=== PATIENT | male | born 1965 | race Caucasian/White ===

== ENCOUNTER 2024-11-01 17:52 | Emergency (ER) | payer BC, SELFPAY ==
[2024-11-01 18:00] VITALS: BP 145/85; PULSE 101; RESP 16; TEMP 36.9; O2SAT 96; BMI 27.1
--- NOTE | 2024-11-01 18:01 | ED_ITS ---
Discharge Plan Disposition Patient Disposition: Home, Self-Care Referrals Follow up/Referrals: Zaid James MD [Primary Care Provider] - See instructions Activity Restrictions/Add. Instructions Additional Instructions/Restrictions: Today you were evaluated in the emergency department. Your head CT shows no acute intracranial findings. There is no major fracture of your CT of your C- spine. As we discussed, he will need an MRI most likely. I understand that you want to be discharged home at this time, however, please return to the ED for any worsening of your condition. Please use acetaminophen or ibuprofen [id number] for symptomatic relief. Clinical Impressions Clinical Impression: Neck pain Fall Qualifiers: Encounter type: initial encounter Qualified Code(s): W19.XXXA - Unspecified fall, initial encounter Headache Qualifiers: Headache type: unspecified Headache chronicity pattern: acute headache Intractability: not intractable Qualified Code(s): R51.9 - Headache, unspecified Instructions Patient Instructions: Exercises to Help Prevent Falls Print Language Print Language: [place] Discharge ED Provider: Jesus Gonzalez General Adult HPI <Steph Borjas APRN - Last Filed: 11/01/24 19:19> General Chief complaint: Head Injury Stated complaint: AO 11/01/24 1700 fell landed on head ,neck pain Time Seen by Provider: 11/01/24 17:56 History of Present Illness HPI narrative: patient is a 59-year-old male with PMHx HTN, diabetes, HLD, bilateral iliac artery stents, on anticoagulation who presents to the ED after a fall that occurred at 1700 today. He states that he was leaf blowing his yard when his dog ran in front of him and he tripped, falling forward. Patient states he did not have time to attempt to catch himself, he hit the top of his head when he landed. Related Data Allergies Allergy/AdvReac Type Severity Reaction Status Date / Time No Known Allergies Allergy Verified 11/01/24 18:05 PFSH <Steph Borjas APRN - Last Filed: 11/01/24 19:19> PFS Disclaimer: The information contained in this section may have been updated after the patient was seen, as this information can be updated by other users. Social History (Updated 11/01/24 @ 19:19 by Steph Borjas APRN) Smoking Status: Current every day smoker alcohol intake: never current occupational status: employed Travel in the last 8 weeks?: None Have you lived/traveled outside US in past 30 days?: No Contact w/someone who lives/traveled outside US past 30 days?: No Exposure to someone with infectious disease in past 14 days?: No Do you have a fever (greater than 100.4 F or 38 C)?: No Have you tested positive for COVID-19?: No Exposed to someone with COVID-19 in past 14 days?: No Do you have a sore throat?: No Do you have a cough?: No Do you have any weakness?: No Do you have any diarrhea?: No Are you experiencing any unusual bleeding?: No Do you have any muscle aches/pain?: No Do you have any abdominal pain?: No Are you experiencing loss of taste or smell?: No <Steph Borjas APRN - Last Filed: 11/01/24 19:19> ROS Obtained: Yes Systems reviewed as appropriate & no additional complaints except as documented Physical Exam <Steph Borjas APRN - Last Filed: 11/01/24 19:19> General General appearance: alert and in no apparent distress Head Head exam: normocephalic and other (Small area of occipital tenderness) Eye Eye exam: Present normal appearance and PERRL ENT ENT exam: Present normal exam Neck Neck exam: Present full ROM and tenderness Chest Chest inspection: Present normal inspection and symmetric chest wall rise; Absent tenderness Respiratory Respiratory exam: Present normal lung sounds bilaterally Cardiovascular Cardiovascular exam: Present regular rate Abdominal Exam Abdominal exam: Present soft and normal bowel sounds; Absent tenderness Extremities Exam Extremities exam: Present normal inspection and full ROM Back Exam Back exam: Present normal inspection and full ROM Neurological Exam Neurological exam: Present alert and oriented X3 Psychiatric Psychiatric exam: Present normal affect and normal mood Skin Skin exam: Present warm and dry Medical Decision Making <Steph Borjas APRN - Last Filed: 11/01/24 19:19> Medical Records Screening: Per USPSTF and CDC recommendations, given the prevalence of disease in our region, it is our hospital?s policy to screen for HIV and viral Hepatitis for all patients aged 18 and over and those with ongoing risk factors. Zev Inquiry Pt receiving controlled substance: No Vital Signs: 11/01/24 18:00 11/01/24 18:31 Temperature 98.5 F Temperature Source Oral Pulse Rate 90 Pulse Rate [Right] 101 H Respiratory Rate 16 Blood Pressure 130/74 Blood Pressure [Right Arm] 145/85 H Blood Pressure Mean [Right Arm] 105 Blood Pressure Source [Right Arm] Automatic Cuff Blood Pressure Position [Right Arm] Sitting 02 Sat by Pulse Oximetry 96 94 L Oxygen Delivery Method Room Air Room Air Orders (Tests/Meds): ED MEDICATIONS Discontinued Medications Generic Name Dose Route Start Last Admin Trade Name Freq PRN Reason Stop Dose Admin Oxycodone/Acetaminophen 1 each 11/01/24 18:05 11/01/24 18:12 Oxycodone 10mg W/Apap 325mg Tablet PO 11/01/24 18:06 1 each ONCE ONE Administration ORDERS Category Date Time Status CT cervical spine wo con Stat Cat Scan 11/01/24 18:[address] head/brain wo con Stat Cat Scan 11/01/24 18:05 Completed Medical Decision Narrative: In summary, patient is a 59-year-old male with PMHx HTN, diabetes, HLD, bilateral iliac artery stents, on anticoagulation who presents to the ED after a fall that occurred at 1700 today. He states that he was leaf blowing his yard when his dog ran in front of him and he tripped, falling forward. Patient states he did not have time to attempt to catch himself, he hit the top of his head when he landed. Did not lose consciousness. Does not have a laceration however does have small knot on occipital area. He reports he has a headache that is a 4 out of 10 on the right parietal aspect, feels like a pressure. He also reports that he has posterior neck pain, patient placed in c-collar upon arrival. Denies fever, chills, body aches, chest pain, shortness of breath, abdominal pain. Physical exam remarkable for C-spine tenderness, occipital tenderness. No nystagmus. PERRLA. No chest wall tenderness. Differential diagnosis includes C-spine fracture, malalignment, ICH, skull fracture, among others Discussed with patient that we will proceed with CT scan of the head and CT scan of the C-spine. He is agreeable to this plan. Will symptomatically managed with oxycodone for pain. CT scan of the head unremarkable for any acute findings. CT of the C-spine unremarkable for any acute findings. C-collar removed. Patient has full ROM of neck, mild pain during ROM. Attending discussed with patient he most likely needs a MRI, however patient states that he would like to be discharged home at this time. He states that he will return to the ED for any worsening of his condition. Discussed follow-up with his PCP. Patient was hemodynamically stable and ambulatory without difficulty from the ED <Jesus Gonzalez MD - Last Filed: 11/01/24 19:23> Vital Signs: 11/01/24 18:00 11/01/24 18:31 Temperature 98.5 F Temperature Source Oral Pulse Rate 90 Pulse Rate [Right] 101 H Respiratory Rate 16 Blood Pressure 130/74 Blood Pressure [Right Arm] 145/85 H Blood Pressure Mean [Right Arm] 105 Blood Pressure Source [Right Arm] Automatic Cuff Blood Pressure Position [Right Arm] Sitting 02 Sat by Pulse Oximetry 96 94 L Oxygen Delivery Method Room Air Room Air Orders (Tests/Meds): ED MEDICATIONS Discontinued Medications Generic Name Dose Route Start Last Admin Trade Name Freq PRN Reason Stop Dose Admin Oxycodone/Acetaminophen 1 each 11/01/24 18:05 11/01/24 18:12 Oxycodone 10mg W/Apap 325mg Tablet PO 11/01/24 18:06 1 each ONCE ONE Administration ORDERS Category Date Time Status CT cervical spine wo con Stat Cat Scan 11/01/24 18:[address] head/brain wo con Stat Cat Scan 11/01/24 18:05 Completed Medical Decision Narrative: In summary, patient is a 59-year-old male with PMHx HTN, diabetes, HLD, bilateral iliac artery stents, on anticoagulation who presents to the ED after a fall that occurred at 1700 today. He states that he was leaf blowing his yard when his dog ran in front of him and he tripped, falling forward. Patient states he did not have time to attempt to catch himself, he hit the top of his head when he landed. Did not lose consciousness. Does not have a laceration however does have small knot on occipital area. He reports he has a headache that is a 4 out of 10 on the right parietal aspect, feels like a pressure. He also reports that he has posterior neck pain, patient placed in c-collar upon arrival. Denies fever, chills, body aches, chest pain, shortness of breath, abdominal pain. Physical exam remarkable for C-spine tenderness, occipital tenderness. No nystagmus. PERRLA. No chest wall tenderness. Differential diagnosis includes C-spine fracture, malalignment, ICH, skull fracture, among others Discussed with patient that we will proceed with CT scan of the head and CT scan of the C-spine. He is agreeable to this plan. Will symptomatically managed with oxycodone for pain. CT scan of the head unremarkable for any acute findings. CT of the C-spine unremarkable for any acute findings. C-collar removed. Patient has full ROM of neck, mild pain during ROM. Attending discussed with patient he most likely needs a MRI, however patient states that he would like to be discharged home at this time. He states that he will return to the ED for any worsening of his condition. Discussed follow-up with his PCP. Patient was hemodynamically stable and ambulatory without difficulty from the ED I was consulted by the AMILCAR, and we discussed the complexity of the problems being addressed. I approved the treatment and management plan for this patient's care in the Emergency Department, thus performing a substantive portion of the medical decision making. I independently examined and interviewed patient. I independently interpreted patient's imaging. No intracranial hemorrhage, but he does have what appears to be fractured osteophyte in the cervical spine. Could be related the patient's pain. On evaluation, neurologically intact, including strength and sensation in his upper extremities. Some midline spine pain overlying C3 and C7, but range of motion of neck intact. No radiating pain when turning his head neck. Was recommended that he stay for admission for MRI versus being transferred to trauma center for MRI, he declined both of these things to state he will follow-up with his family doctor soon as possible. I do not feel this is unreasonable. He be discharged with close return precautions. Jesus Gonzalez MD Critical Care <Steph Borjas, COMMISSARY OFFICER - Last Filed: 11/01/24 19:19> Critical Care Time Critical Care Time: No
--- NOTE | 2024-11-01 18:05 | CT_ITS ---
PROCEDURE INFORMATION: Exam: CT Cervical Spine Without Contrast Exam date and time: 11/01/2024 6:20 PM Age: 59 years old Clinical indication: Injury or trauma; Fall; Other: Pain; Additional info: Fell, hit head, neck pain TECHNIQUE: Imaging protocol: Computed tomography of the cervical spine without contrast. Radiation optimization: All CT scans at this facility use at least one of these dose optimization techniques: automated exposure control; mA and/or kV adjustment per patient size (includes targeted exams where dose is matched to clinical indication); or iterative reconstruction. COMPARISON: CT HEAD/BRAIN WO CON 11/01/2024 6:18 PM FINDINGS: Bones: Cervical vertebrae normal in height. No acute fracture. Minimal dextroconvex curvature. Maintained craniocervical junction. Multilevel degenerative changes. Varying degrees of neural foraminal narrowing. No severe spinal canal stenosis. Lungs: No acute findings. Soft tissues: Unremarkable. IMPRESSION: No acute osseous findings.
--- NOTE | 2024-11-01 18:05 | CT_ITS ---
PROCEDURE INFORMATION: Exam: CT Head Without Contrast Exam date and time: 11/01/2024 6:18 PM Age: 59 years old Clinical indication: Injury or trauma; Fall; Other: Pain; Additional info: Fall hit head on bt TECHNIQUE: Imaging protocol: Computed tomography of the head without contrast. Radiation optimization: All CT scans at this facility use at least one of these dose optimization techniques: automated exposure control; mA and/or kV adjustment per patient size (includes targeted exams where dose is matched to clinical indication); or iterative reconstruction. COMPARISON: CT HEAD/BRAIN WO CON 11/01/2024 6:18 PM FINDINGS: Brain: No acute intracranial hemorrhage, midline shift, or mass effect. 2.5 x 2.4 x 2.4 cm right retrocerebellar CSF collection favoring an arachnoid cyst. Cerebral ventricles: No ventriculomegaly. Paranasal sinuses: Minimal scattered mucosal thickening. Mastoid air cells: Visualized mastoid air cells are well aerated. Bones: Unremarkable. No acute fracture. Soft tissues: Unremarkable. IMPRESSION: No acute intracranial findings.
[2024-11-01] MEDS: OXYCODONE 10MG W/APAP 325MG TABLET 1 EACH PO (18:12)
[2024-11-01 18:31] VITALS: BP 130/74; PULSE 90; O2SAT 94
[2024-11-01 19:21] VITALS: BP 121/77; PULSE 96; RESP 16; TEMP 36.8; O2SAT 95
== END 2024-11-01 19:22 | disposition home or self-care (01) ==
PROVIDERS: Emergency Provider Emergency Medicine; PCP Family Medicine
DX: M54.2 Cervicalgia (principal); R51.9 Headache, unspecified; W01.10XA Fall on same level from slipping, tripping and stumbling with subsequent striking against unspecified object, initial encounter
CPT/HCPCS: 70450; 72125; 99285

== ENCOUNTER 2025-01-17 08:48 | Outpatient (CLI) | payer BC, SELFPAY ==
--- OUTSIDE RECORDS SUMMARY | 2024-12-17 07:35 | XMS_ITS | Encounter Summary ---
[facility] Address [address] [place] [address] Care Team Providers Care Glazier Artist Name Role Phone Zaid James MD Primary Care Provider [phone] Reason for Referral * Diagnostic Imaging (Routine) - Closed Specialty Diagnoses / Procedures Referred By Contac t Referred To Contact Cardiology Diagnoses Atherosclerosis of right iliac artery Procedures Duplex Aorta IVC Iliac Graft Limited oJhn Parkinson MD [address] [place] [address] Phone: tel: fax: [facility] [employer] [address] [address] Phone: tel: fax: Referral ID Status Reason Start Date Expiration Date Visits Re quested Visits Authorized [id number] Closed 12/06/2024 01/04/2025 1 1 Reason for Visit * Diagnostic Imaging (Routine) - Closed Specialty Diagnoses / Procedures Referred By Contac t Referred To Contact Cardiology Diagnoses Atherosclerosis of right iliac artery Procedures Duplex Aorta IVC Iliac Graft Limited John Parkinson MD [facility] [employer] [address] Phone: tel: fax: [facility] NON INVASIVE VASCULAR LABORATORY [facility] [employer] [address] [address] Phone: tel: fax: Referral ID Status Reason Start Date Expiration Date Visits Re quested Visits Authorized [id number] Closed 12/06/2024 01/04/2025 1 1 Encounter Details Date Type Department Care Team (Latest Contact Info) Description 12/17/2024 7:35 AM EDT - 12/17/2024 11:59 PM EDT Hospital Encounter [facility] [address] [address] Atherosclerosis of right iliac artery Discharge Disposition: Home or Self Care Social History Tobacco Use Types Packs/Day Years Used Date Smoking Tobacco: Former Cigarettes 2 31 1 08/08/1985 - 06/07/2017 Passive Smoke Exposure: Never Smokeless Tobacco: Never Alcohol Use Standard Drinks/Week Comments Yes 0 (1 standard drink = 0.6 oz pur e alcohol) once or twice a month Abuse Screen Answer Date Recorded Feels Unsafe at Home or Work/School no 10/07/2023 Feels Threatened by Someone no 09/24 Does Anyone Try to Keep You From Having Contact with Others or Doing Things Outside Your Home? no 10/07/2023 Physical Signs of Abuse Present no 10/07/2023 Sex and Gender Information Value Date Recorded Sex Assigned at Not on file Legal Sex Male 9:04 AM EDT Gender Identity Not on file Sexual Orientation Not on file documented as of this encounter Medications at Time of Discharge aspirin 81 MG EC tablet Take 1 tablet by mouth Daily. atorvastatin (LIPITOR) 40 MG tablet Take 1 tablet by mouth Daily. 09/04/2024 Baclofen (LIORESAL) 5 MG tablet Take 1 tablet by mouth 3 (Three) Times a Day. cilostazol (PLETAL) 100 MG tablet TAKE 1 TABLET BY MOUTH TWICE DAILY (30 MINUTES BEFORE OR 2 HOURS AFTER BREAKFAST AND DINNER) clopidogrel (PLAVIX) 75 MG tablet Take 1 tablet by mouth once daily 90 tablet 10/14/2024 DULoxetine (CYMBALTA) 30 MG capsule Take 1 capsule by mouth Daily. Farxiga 10 MG tablet Take 10 mg by mouth Daily. 12/11/2024 gabapentin (NEURONTIN) 300 MG capsuleIndicatio ns:Vascular occlusion Take 1 capsule by mouth 3 (Three) Times a Day. 90 capsule 3 07/08/2024 losartan (COZAAR) 50 MG tablet Take 1 tablet by mouth Daily. pantoprazole (PROTONIX) 20 MG EC tablet TAKE 1 TABLET BY MOUTH TWICE DAILY 30 MINUTES BEFORE BREAKFAST AND DINNER amLODIPine (NORVASC) 2.5 MG tablet Take 1 tablet by mouth. amoxicillin-clav ulanate (AUGMENTIN) 875-125 MG per tablet Take 1 tablet by mouth 2 (Two) Times a Day. 14 tablet 10/07/2023 traMADol (ULTRAM) 50 MG tablet Take 1 tablet by mouth Every 6 (Six) Hours As Needed for Moderate Pain . 20 tablet 09/17/2019 11:32 AM EDT 09/17/2019 meloxicam (MOBIC) 15 MG tablet Take 1 tablet by mouth Daily. 12/10/2024 documented as of this encounter Plan of Treatment Upcoming Encounters Date Type Department Care Team (Late st Contact Info) Description 12/23/2025 8:00 AM EDT Appointment [facility] NON [facility] [address] [phone] 12/23/2025 8:30 AM EDT Appointment [facility] NON [facility] [address] 12/23/2025 9:15 AM EDT Office Visit [facility] V[facility]ULAR SURGERY [address] [phone] Carmen Madrid, SPECIALIZED LANGUAGE INSTRUCTOR [address] [address] Scheduled Procedures Name Priority Associated Diagnoses Date/Ti me THROMBOLYSIS LOWER EXTREMITY Arterial stent thrombosis, initial encounter documented as of this encounter Procedures Procedure Name Priority Date/Time Associated Diagnosis Comments DUPLEX AORTA IVC ILIAC GRAFT LIMITED CAR Routine 12/17/2024 8:46 AM EDT Atherosclerosis of right iliac artery documented in this encounter Results * Duplex Aorta IVC Iliac Graft Limited CAR (12/17/2024 8:46 AM EDT) FREE TEXT STENT ONE right AIDEN STENT ONE PROX STENT PSV 137.0 cm/sec STENT ONE MID STENT PSV 186.0 cm/sec STENT ONE DIST STENT PSV 306.0 cm/sec STENT ONE POST STENT PSV 133.0 cm/sec FREE TEXT STENT TWO left aiden STENT TWO PROX STENT PSV 107.0 cm/sec STENT TWO MID STENT PSV 191.0 cm/sec STENT TWO DIST STENT PSV 241.0 cm/sec STENT TWO POST STENT PSV 386.0 cm/sec Abdominal prox aorta lotus 62.0 cm/s Abdominal prox aorta AP 1.7 cm Abdominal prox aorta trans 1.8 cm Abdominal mid aorta lotus 68.0 cm/s Abdominal mid aorta AP 2.0 cm Abdominal mid aorta trans 1.7 cm Abdominal dist aorta lotus 50.0 cm/s Abdominal dist aorta AP 2.3 cm Abdominal dist aorta trans 2.3 cm Abdominal rt com iliac lotus 185.0 cm/s Abdominal rt com iliac AP 0.8 cm Abdominal rt com iliac trans 0.7 cm Abdominal rt ext iliac lotus 306.0 cm/s Abdominal lt com iliac lotus 386.0 cm/s Abdominal lt com iliac AP 0.9 cm Abdominal lt com iliac trans 0.9 cm Abdominal lt ext iliac lotus 179.0 cm/s Anatomical Region Laterality Modality Ultrasound Narrative 12/17/2024 9:03 AM EDT Bilateral patent common iliac artery stents with moderate stenosis in the distal right stent and distal to the left stent. Study Impression Stent 1: There is a stent noted in the right AIDEN. Stent 2: There is a stent noted in the left aiden. Abdominal Stents There is a stent present in the right AIDEN, a second stent present in the left aiden. us John Pettit MD CV VASCULAR ORDERABLES Final Result documented in this encounter Visit Diagnoses Diagnosis Atherosclerosis of right iliac artery documented in this encounter Care Teams Glazier Artist Relationship Specialty Start Date End Date Zaid James MD [address] [facility] [address] [place] [address] PCP - General Family Medicine 07/13/23 documented as of this encounter
--- OUTSIDE RECORDS SUMMARY | 2024-12-17 07:35 | XMS_ITS | Encounter Summary ---
[facility] Organization [facility] Address [address] [place] [address] Care Team Providers Care Codifier Name Role Phone Zaid James MD Primary Care Provider [phone] Reason for Referral * Diagnostic Imaging (Routine) - Closed Specialty Diagnoses / Procedures Referred By Reynaac t Referred To Contact Cardiology Diagnoses Stenosis of carotid artery, unspecified laterality Procedures Duplex Carotid Ultrasound John Parkinson MD [address] [place] [address] Phone: tel: fax: [facility] [employer] IN[facility] [address] [place] [phone] Phone: tel: fax: Referral ID Status Reason Start Date Expiration Date Visits Re quested Visits Authorized [id number] Closed 12/06/2024 01/04/2025 1 1 Reason for Visit * Diagnostic Imaging (Routine) - Closed Specialty Diagnoses / Procedures Referred By Contac t Referred To Contact Cardiology Diagnoses Stenosis of carotid artery, unspecified laterality Procedures Duplex Carotid Ultrasound John Parkinson MD [facility] [employer] [place] [address] Phone: tel: fax: [facility] NON INVASIVE VASCULAR LABORATORY [address] [place], [place] [address] [address] [address] Phone: tel: fax: Referral ID Status Reason Start Date Expiration Date Visits Re quested Visits Authorized [id number] Closed 12/06/2024 01/04/2025 1 1 Encounter Details Date Type Department Care Team (Latest Contact Info) Description 12/17/2024 7:35 AM EDT - 12/17/2024 11:59 PM EDT Hospital Encounter [facility] NON INVASIVE VASCULAR LABORATORY Germaine GONZALEZ [address] [address] Stenosis of carotid artery, unspecified laterality Discharge Disposition: Home or Self Care Social [...] Info) Description 12/23/2025 8:00 AM EDT Appointment [facility] NON INVASIVE VASCULAR LABORATORY [facility][note 3][address] [address] 12/23/2025 8:30 AM EDT Appointment [facility] NON INVASIVE VASCULAR LABORATORY [address] [place] [phone] 12/23/2025 9:15 AM EDT Office Visit [facility] VASCULAR SURGERY [address] [phone] Carmen Madrid, [place] [address] [address] Scheduled Procedures Name Priority Associated Diagnoses Date/Ti me THROMBOLYSIS LOWER EXTREMITY Arterial stent thrombosis, initial encounter documented as of this encounter Procedures Procedure Name Priority Date/Time Associated Diagnosis Comments DUPLEX CAROTID BILATERAL CAR - PERFORMED PROCEDURE Routine 12/17/2024 8:07 AM EDT Stenosis of carotid artery, unspecified laterality documented in this encounter Results * DUPLEX CAROTID BILATERAL CAR - PERFORMED PROCEDURE (12/17/2024 8:07 AM EDT) Prox CCA PSV 111.6 cm/sec Prox CCA EDV 34.6 cm/sec Right Mid CCA PSV 94.4 cm/sec right Mid CCA EDV 22.3 cm/sec Dist CCA PSV -96.7 cm/sec Dist CCA EDV -22.3 cm/sec Prox ICA PSV -71.5 cm/sec Prox ICA EDV -27.6 cm/sec Mid ICA PSV -87.4 cm/sec Mid ICA EDV -31.7 cm/sec Dist ICA PSV -101.4 cm/sec Dist ICA EDV -40.5 cm/sec Prox ECA PSV -138.5 cm/sec Prox ECA EDV -23.6 cm/sec Vertebral A PSV 50.3 cm/sec Vertebral A EDV 13.0 cm/sec Prox SCLA PSV 145.4 cm/sec Prox CCA PSV 142.4 cm/sec Prox CCA EDV 32.4 cm/sec left Mid CCA PSV 110.2 cm/sec left Mid CCA EDV 27.6 cm/sec Dist CCA PSV 107.9 cm/sec Dist CCA EDV 22.9 cm/sec Prox ICA PSV -80.9 cm/sec Prox ICA EDV -25.9 cm/sec Mid ICA PSV -95.1 cm/sec Mid ICA EDV -35.4 cm/sec Dist ICA PSV -101.4 cm/sec Dist ICA EDV -40.9 cm/sec Prox ECA PSV -180.7 cm/sec Prox ECA EDV -34.4 cm/sec Vertebral A PSV 58.5 cm/sec Vertebral A EDV 16.9 cm/sec Prox SCLA PSV 139.5 cm/sec XLRA NAS RIGHT CAROTID BULB PSV -76.8 cm/sec XLRA NAS RIGHT CAROTID BULB EDV -27.6 cm/sec XLRA NAS LEFT CAROTID BULB PSV -79.4 cm/sec XLRA NAS LEFT CAROTID BULB EDV -14.1 cm/sec ICA/CCA ratio 1.05 ICA/CCA ratio 0.94 Right arm BP 108 mmHg Left arm BP 112 mmHg Anatomical Region Laterality Modality Ultrasound Narrative 12/17/2024 8:53 AM EDT Right internal carotid artery demonstrates a less than 50% stenosis. Antegrade right vertebral flow. Left internal carotid artery demonstrates a less than 50% stenosis. Antegrade left vertebral flow. Study Impression Right ICA: Imaging indicates <50% stenosis. Left ICA: Imaging indicates <50% stenosis. Study Findings Right Carotid Bulb: Homogeneous plaque present. Right ICA Prox: Heterogeneous plaque present. Right Vertebral: Antegrade flow noted. Left ICA Prox: Heterogeneous plaque present. Left Vertebral: Antegrade flow noted. John Pettit MD CV VASCULAR ORDERABLES Final Result documented in this encounter Visit Diagnoses Diagnosis Stenosis of carotid artery, unspecified laterality documented in this encounter Care Teams Codifier Relationship Specialty Start Date End Date Zaid James MD [address] [address] PCP - General Family Medicine 07/13/23 documented as of this encounter
--- OUTSIDE RECORDS SUMMARY | 2024-12-17 07:36 | XMS_ITS | Encounter Summary ---
[facility] Organization [facility] Address [address] [place] [address] Care Team Providers Care Utility Tractor Operator Name Role Phone Zaid James MD Primary Care Provider [phone] Reason for Referral * Diagnostic Imaging (Routine) - Closed Specialty Diagnoses / Procedures Referred By Contac t Referred To Contact Cardiology Diagnoses Atherosclerosis of right iliac artery Procedures Doppler Ankle Brachial Index Single Level CAR John Pettit MD [facility] [place] [address] Phone: tel: fax: [facility] NON INVASIVE VASCULAR LABORATORY [facility] [employer] [address] [address] Phone: tel: fax: Referral ID Status Reason Start Date Expiration Date Visits Re quested Visits Authorized [id number] Closed 12/06/2024 01/04/2025 1 1 Reason for Visit * Diagnostic Imaging (Routine) - Closed Specialty Diagnoses / Procedures Referred By Contac t Referred To Contact Cardiology Diagnoses Atherosclerosis of right iliac artery Procedures Doppler Ankle Brachial Index Single Level CAR John Pettit MD [facility] [place] [address] Phone: tel: fax: [facility] [employer] [address] [address] Phone: tel: fax: Referral ID Status Reason Start Date Expiration Date Visits Re quested Visits Authorized [id number] Closed 12/06/2024 01/04/2025 1 1 Encounter Details Date Type Department Care Team (Latest Contact Info) Description 12/17/2024 7:36 AM EDT - 12/17/2024 11:59 PM EDT Hospital Encounter [facility] NON [facility]IVE [facility]ULAR LAB[facility] [address] [address] Atherosclerosis of right iliac artery [...] Info) Description 12/23/2025 8:00 AM EDT Appointment [facility] NON INVASIVE VASCULAR LABORATORY [address] [address] 12/23/2025 8:30 AM EDT Appointment [facility] NON INVASIVE VASCULAR LABORATORY [facility] [address] 12/23/2025 9:15 AM EDT Office Visit [facility] VASCULAR SURGERY [address] [address] Carmen Madrid, MARKET SUPERINTENDENT [address] [address] Scheduled Procedures Name Priority Associated Diagnoses Date/Ti me THROMBOLYSIS LOWER EXTREMITY Arterial stent thrombosis, initial encounter documented as of this encounter Procedures Procedure Name Priority Date/Time Associated Diagnosis Comments DOPPLER ANKLE BRACHIAL INDEX SINGLE LEVEL CAR Routine 12/17/2024 8:07 AM EDT Atherosclerosis of right iliac artery documented in this encounter Results * Doppler Ankle Brachial Index Single Level CAR (12/17/2024 8:07 AM EDT) Upper arterial right arm brachial sys max 108 Upper arterial left arm brachial sys max 112 RIGHT POST TIBIAL SYS MAX 98 LEFT POST TIBIAL SYS MAX 98 RIGHT DORSALIS PEDIS SYS MAX 108 LEFT DORSALIS PEDIS SYS MAX 88 RIGHT JOSELYN RATIO 0.96 LEFT JOSELYN RATIO 0.88 Anatomical Region Laterality Modality Ultrasound Narrative 12/17/2024 8:53 AM EDT Right Conclusion: The right JOSELYN is normal. Left Conclusion: The left JOSELYN is mildly reduced. Study Impression Right Conclusion: The right JOSELYN is normal. Left Conclusion: The left JOSELYN is mildly reduced. Study Findings Right Sided Findings: Right Posterior Tibial: The pulse is 2+. Multiphasic, high resistive arterial flow noted. Right Dorsalis Pedis: The pulse is 2+. Multiphasic, high resistive arterial flow noted. Left Sided Findings: Left Posterior Tibial: The pulse is 2+. Multiphasic, high resistive arterial flow noted. Left Dorsalis Pedis: The pulse is 1+. Multiphasic, high resistive arterial flow noted. us John Pettit MD CV VASCULAR ORDERABLES Final Result documented in this encounter Visit Diagnoses Diagnosis Atherosclerosis of right iliac artery documented in this encounter Care Teams Utility Tractor Operator Relationship Specialty Start Date End Date Zaid James MD [address] [facility] [address] [place] [address] PCP - General Family Medicine 07/13/23 documented as of this encounter
--- OUTSIDE RECORDS SUMMARY | 2024-12-17 09:30 | XMS_ITS | Encounter Summary ---
Author Organization [facility] Address [address] [place] [address] Care Team Providers Care Manager Produce Name Role Phone Zaid James MD Primary Care Provider [phone] Reason for Referral * Diagnostic Imaging (Routine) - Pending Review Specialty Diagnoses / Procedures Referred By Emiliano rosenthal Referred To Contact Diagnoses Peripheral arterial disease with history of revascularization Procedures Duplex Aorta IVC Iliac Graft Complete CAR Carmen Madrid APRN [address] [place] [address] Phone: tel: fax: Referral ID Status Reason Start Date Expiration Date V isits Requested Visits Authorized Pending Review 12/17/2024 03/18/2026 1 1 * Diagnostic Imaging (Routine) - Pending Review Specialty Diagnoses / Procedures Referred By Emiliano rosenthal Referred To Contact Diagnoses Peripheral arterial disease with history of revascularization Procedures Doppler Ankle Brachial Index Single Level Carmen Mann APRN [address] [place] [address] Phone: tel: fax: Referral ID Status Reason Start Date Expiration Date V isits Requested Visits Authorized Pending Review 12/17/2024 03/18/2026 1 1 Reason for Visit * Reason Comments peripheral arterial disease Encounter Details Date Type Department Care Team (Latest Contact Info) Description 12/17/2024 9:30 AM EDT Office Visit [facility] VASCULAR SURGERY [address] [address] Carmen [place], [place] [address] [address] Peripheral arterial disease with history of revascularization (Primary Dx); Bilateral carotid artery stenosis Social History Tobacco Use Types Packs/Day Years Used Date Smoking Tobacco: Former Cigarettes 2 31 1 08/08/1985 - 06/07/2017 Passive Smoke Exposure: Never Smokeless Tobacco: Never Tobacco Cessation:Counseling Given: Yes Alcohol Use Standard Drinks/Week Comments Yes 0 [...] on file documented as of this encounter Last Filed Vital Signs Vital Sign Reading Time Taken Comments Blood Pressure 105/66 12/17/2024 8:53 AM EDT Pulse 102 12/17/2024 8:53 AM EDT Temperature - - Respiratory Rate - - Oxygen Saturation - - Inhaled Oxygen Concentration - - Weight 84.5 kg (186 lb 3.2 oz) 12/17/2024 8:53 A M EDT Height 177.8 cm (5' 10 ) 12/17/2024 8:53 AM EDT Body Mass Index 26.72 12/17/2024 8:53 AM EDT documented in this encounter Patient Instructions * Patient Instructions* Carmen Madrid, [place] - 12/17/2024 9:30 AM EDT 8-6-7-Almost None! Healthy Habits Start Early EAT 5 OR MORE SERVINGS OF VEGETABLES AND FRUITS EVERY DAY. Help Brian get three vegetables and two fruits each day. Red, green, yellow, orange...encourage themto try all the colors so they can enjoy different flavors and get more vitamins. How can I help Brian do this? -BE PATIENT WITH Brian, remember it may take 10 times before they start to like new food. So, start with small bites and just keep trying. -Serve at least one vegetable or fruit at every meal. Even try two. Remember, portions do not have to be as big as you think. -Encourage eating fruits and vegetables instead of drinking them..it's a better way to get fiber and vitamins..so limit the amount of juice to 1/2 cup per day for children 1-6 years and one cup per day for children 7-18 years of age. Try using 1/2 part water and 1/2 part juice. Spend less than two hours per day watching television and other screen media. Screen media includesPrice Squido games, movies and computer use for entertainment. How can I help Brian do this? -Turn off the TV at dinner. Dinner is the best time to hang out with your kids and just talk, learnabout their day, and tell them about your day. Your kids have a lot to learn from you and dinner no great time to share. documented in this encounter Progress Notes * Carmen Madrid APRN - 12/17/2024 9:30 AM EDT Chief Complaint peripheral arterial disease Subjective Brian Turcios presents to [facility] VASCULAR SURGERY HPI Brian Turcios is a 59 y.o. male that has been followed in our office for peripheral arterial disease and carotid artery stenosis. He had originally been cared for at [facility] in [place]. He has history of bilateral iliac stents placed for atheroembolization associated with common iliac artery stenosis with possible dissections. He was treated with aspirin, Pletal, statin, and Norvasc. His Pletal was stopped after his ischemic toe on the right had healed. In 2019, he had a reoccurrence of symptoms; therefore, his Pletal was restarted and he remains on this indefinitely. He then presented with acute ischemia of the right leg with neuropathic findings and had emergent placement o f an EKOS catheter for an occluded iliac stent. He then had a Viabahn stent graft placement placed on 09/16/2019. He returns today in follow up along with ABIs. He reports he had a colon resection due to diverticulitis. He then had a hernia repair. He denies any worsening claudication symptoms, rest pain, or tissue loss. He denies any symptoms consistent with CVA, TIA, or amaurosis fugax. Review of Systems Constitutional: Negative for fever. Eyes: Negative for visual disturbance. Cardiovascular: Negative for leg swelling. Gastrointestinal: Negative for abdominal pain. Musculoskeletal: Negative for back pain. Skin: Negative for color change, pallor and wound. Neurological: Negative for dizziness, facial asymmetry, speech difficulty and weakness. Brian Turcios reports that he quit smoking about 7 years ago. His smoking use included cigarettes. He started smoking about 38 years ago. He has a 62 pack- year smoking history. He has never been exposed to tobacco smoke. He has never used smokeless tobacco.. Objective Vital Signs: Vitals: 12/17/24 0853 BP: 105/66 Pulse: 102 Body mass index is 26.72 kg/m??. BMI is >= 25 and <30. (Overweight) The following options were offered after discussion;: information on healthy weight added to patient's after visit summary Physical Exam Vitals reviewed. Constitutional: Appearance: Normal appearance. HENT: Head: Normocephalic. Cardiovascular: Rate and Rhythm: Normal rate and regular rhythm. Pulses: Dorsalis pedis pulses are 3+ on the right side and 3+ on the left side. Posterior tibial pulses are 3+ on the right side and 3+ on the left side. Pulmonary: Effort: Pulmonary effort is normal. Skin: General: Skin is warm. Neurological: General: No focal deficit present. Mental Status: He is alert and oriented to person, place, and time. Psychiatric: Mood and Affect: Mood normal. Result Review : ABIs from last year: 0.9 bilaterally. Bilateral iliac stents patent ABIs from today: Doppler Ankle Brachial Index Single Level CAR (12/17/2024 08:07) Previous carotid duplex: Less than 50% stenosis bilaterally Carotid duplex done today:Duplex Carotid Ultrasound CAR (12/17/2024 08:07) Assessment and Plan Diagnoses and all orders for this visit: 1. Peripheral arterial disease with history of revascularization (Primary) - Doppler Ankle Brachial Index Single Level CAR; Future - Duplex Aorta IVC Iliac Graft Complete CAR; Future 2. Bilateral carotid artery stenosis Patient presents today for follow up of his peripheral arterial disease. Today, his JAISON in the right is 0.96 and the left is 0.88. He has moderate stenosis to his right distal stent. He is to continue his antiplatelet agent which is aspirin. He is also on Plavix and Pletal. He is to continue his statin for cholesterol control. We discussed adequate blood pressure management. We discussed continuing his walking protocol. He will return in 1 year along with ABIs and an iliac stent scan. We will check his carotid duplex in 2 years. Follow Up Return in about 1 year (around 12/17/2025) for jaison, aortic duplex. Patient was given instructions and counseling regarding his condition or for health maintenance advice. Please see specific information pulled into the AVS if appropriate. Carmen Madrid APRN documented in this encounter Plan of Treatment Upcoming Encounters Date Type Department Care Team (Late st Contact Info) Description 12/23/2025 8:00 AM EDT Appointment [facility] NON INVASIVE VASCULAR LABORATORY [address] [place] [phone] 12/23/2025 8:30 AM EDT Appointment [facility] NON INVASIVE VASCULAR LABORATORY [address] [address] 12/23/2025 9:15 AM EDT Office Visit [facility] VASCULAR SURGERY [address] [phone] Carmen Madrid APRN [address] [address] Scheduled Orders Name Type Priority Associated Diagnoses Orde r Schedule Doppler Ankle Brachial Index Single Level CAR Vascular Ultrasound Routine Peripheral arterial disease with history of revascularization Expected: 12/17/2025, Expires: 03/19/2026 Duplex Aorta IVC Iliac Graft Complete CAR Vascular Ultrasound Routine Peripheral arterial disease with history of revascularization Expected: 12/17/2025, Expires: 03/19/2026 Scheduled Procedures Name Priority Associated Diagnoses Date/Ti me THROMBOLYSIS LOWER EXTREMITY Arterial stent thrombosis, initial encounter documented as of this encounter Visit Diagnoses Diagnosis Peripheral arterial disease with history of revascularization- Primary Bilateral carotid artery stenosis Occlusion and stenosis of carotid artery without mention of cerebral infarction documented in this encounter Care Teams Manager Produce Relationship Specialty Start Date End Date Zaid Jamse MD [address] [place] [address] PCP - General Family Medicine 07/13/23 documented as of this encounter
--- OUTSIDE RECORDS SUMMARY | 2025-01-17 08:53 | XMS_ITS | Clinical Summary ---
Author Organization [facility] Address [address] [place] [address] Care Team Providers Care Dietary Cook Name Role Phone Zaid James MD Primary Care Provider [phone] Allergies No known active allergies Medications aspirin 81 MG EC tablet Take 1 tablet (81 mg) by mouth. Active atorvastatin (Lipitor) 40 MG tablet Take 1 tablet (40 mg) by mouth 1 (one) time each day. Active cilostazol (Pletal) 100 MG tablet Take 1 tablet (100 mg) by mouth twice a day. 2 Active clopidogrel (Plavix) 75 MG tablet Take 1 tablet (75 mg) by mouth. 2 Active gabapentin (Neurontin) 300 MG capsule Take 1 capsule (300 mg) by mouth 1 (one) time each day. 2 Active lisinopril 10 MG tablet Take 1 tablet (10 mg) by mouth 1 (one) time each day. Active DULoxetine (Cymbalta) [address] capsule Take 1 capsule (30 mg) by mouth 1 (one) time each day. 3 Active albuterol 108 (90 Base) MCG/ACT inhaler Inhale 2 puffs every 4 (four) hours. 3 Active Baclofen 5 MG tablet 3 Active Spiriva Respimat 2.5 MCG/ACT inhaler INHALE 2 SPRAYS BY MOUTH ONCE DAILY 3 Active pantoprazole (ProtoNix) 20 MG EC tablet 3 Active predniSONE (Deltasone) 20 MG tablet TAKE 1 TABLET BY MOUTH EVERY 12 HOURS FOR 5 DAYS 3 Active nystatin (Mycostatin) cream APPLY CREAM TOPICALLY TO AFFECTED AREA TWICE DAILY 3 Active Active Problems No known active problems Social History Tobacco Use Types Packs/Day Years Used Date Smoking Tobacco: Every Day Cigarettes Smokeless Tobacco: Never Tobacco Cessation:Ready to Q uit: Not Asked; Counseling Given: Not Answered Alcohol Use Standard Drinks/Week Comments Not Currently 0 (1 standard drink = 0.6 oz pur e alcohol) Sex and Gender Information Value Date Recorded Sex Assigned at Not on file Legal Sex Male 8:09 PM EDT Gender Identity Not on file Sexual Orientation Not on file Last Filed Vital Signs Vital Sign Reading Time Taken Comments Blood Pressure 161/83 05/15/2023 9:16 AM EST Pulse 105 05/15/2023 9:16 AM EST Temperature - - Respiratory Rate - - Oxygen Saturation - - Inhaled Oxygen Concentration - - Weight 88 kg (194 lb) 05/15/2023 9:16 AM EST Height 177.8 cm (5' 10 ) 05/15/2023 9:16 AM EST Body Mass Index 27.84 05/15/2023 9:16 AM EST Plan of Treatment Health Maintenance Due Date Last Done Comments [facility]-Depression Screening 1966 [facility]-HIV Screening 1966 [facility]-Hepatitis C Screening 1966 [facility]-/Child/Adol SDOH Screenings 1966 [facility]- SDOH Screenings 02/01/1984 [facility]-Adult SDOH Screenings 02/01/1984 [facility]-Hepatitis B Vaccines (1 of 3 - 19+ 3-dose series) 1985 CT Colonography 2011 Colonoscopy 2011 FIT-DNA 2011 FIT 2011 FOBT 2011 Sigmoidoscopy 2011 [facility]-Colorectal Cancer Screening 2011 GBM-[id number]-18 Vaccine ( season) 2024 01/11/2022, 04/19/2021, 10/01/2020, Additional history exists [facility]-Influenza Vaccine (#1) 02/24/202508/18, 03/26/2022, 04/01/2021, Additional history exists [facility]-DTaP,Tdap,and Td Vaccines (3 - Td or Tdap) 06/05/2031 06/05/2021, 09/24/2015, 10/16/2007 [facility]-Hepatitis A Vaccines Aged Out 04/23/2018 No longer eligible based on patient's age to complete this topic [facility]-Zoster Vaccines Completed 07/14/2021, [facility]-Pneumococcal Vaccine: 50+ Years Completed 03/01/2022 [facility]-Obesity Intervention Completed 023, 04/13/2023, 01/23/2023, Additional history exists HPV Vaccines Aged Out No longer eligi ble based on patient's age to complete this topic [facility]-HIB Vaccines Aged Out No longer e ligible based on patient's age to complete this topic [facility]-IPV Vaccines Aged Out No longer e ligible based on patient's age to complete this topic [facility]-Rotavirus Vaccines Aged Out No lo nger eligible based on patient's age to complete this topic Insurance ANTH Care Teams Dietary Cook Relationship Specialty Start Date End Date Zaid James MD [address] [facility] [address] [place] [address] PCP - General 08/02/22
--- OUTSIDE RECORDS SUMMARY | 2025-01-17 08:53 | XMS_ITS | Encounter Summary ---
[facility] Address [address] [place] [address] Care Team Providers Care Circular Distributor Name Role Phone Zaid James MD Primary Care Provider [phone] Encounter Details Date Type Department Care Team (Latest Contact Info) Description 12/17/2024 Travel Social History Tobacco Use Types Packs/Day Years [...] on file documented as of this encounter Plan of Treatment Upcoming Encounters Date Type Department Care Team (Late st Contact Info) Description 12/23/2025 8:00 AM EDT Appointment [facility] NON INVASIVE VASCULAR LABORATORY [address] [address] 12/23/2025 8:30 AM EDT Appointment [facility] NON INVASIVE VASCULAR LABORATORY [address] [address] 12/23/2025 9:15 AM EDT Office Visit [facility] VASCULAR SURGERY [address] [facility] [address] [place] [address] Carmen Madrid, TRIAL MGR [address] [facility] [address] [place] [address] Scheduled Procedures Name Priority Associated Diagnoses Date/Ti me THROMBOLYSIS LOWER EXTREMITY Arterial stent thrombosis, initial encounter documented as of this encounter Visit Diagnoses Not on filedocumented in this encounter Care Teams Circular Distributor Relationship Specialty Start Date End Date Zaid James MD [address] [facility] [address] [place] [address] PCP - General Family Medicine 07/13/23 documented as of this encounter
--- OUTSIDE RECORDS SUMMARY | 2025-01-17 08:53 | XMS_ITS | Encounter Summary ---
Author Organization Healthcare Address [address] [place] [address] Care Team Providers Care Manager Of Finance Name Role Phone Zaid James MD Primary Care Provider [phone] Reason for Referral * Consultation (Routine) - Closed Specialty Diagnoses / Procedures Referred By Emiliano t Referred To Contact Otolaryngology Diagnoses Edema of larynx Josh Navarrete MD [address] [facility], [address] [address] Phone: tel: fax: Brian Edmonds MD [address] [facility] [address] [place] [address] Phone: tel: fax: Referral ID Status Reason Start Date Expiration Date V isits Requested Visits Authorized [id number] Closed Specialty Services Required 06/29/2022 12/29/2023 1 1 Encounter Details Date Type Department Care Team (Late st Contact Info) Description 06/29/2022 Community Orders Community Practice [address] [place] [address] Josh Navarrete MD [address] [facility], [place] [phone] Edema of larynx (Primary Dx) Social History Tobacco Use Types Packs/Day Years Used Date Smoking Tobacco: Never Assessed Sex and Gender Information Value Date Recorded Sex Assigned at Not on file Legal Sex Male 8:09 PM EDT Gender Identity Not on file Sexual Orientation Not on file documented as of this encounter Plan of Treatment Scheduled Referrals Name Type Priority Associated Diagnoses Order Schedule Ambulatory Referral to ENT Outpatient Referral Routine Edema of larynx Expected: 06/29/2022 (Approximate), Expires: 12/28/2023 documented as of this encounter Visit Diagnoses Diagnosis Edema of larynx- Primary documented in this encounter Care Teams Manager Of Finance Relationship Specialty Start Date End Date Zaid James MD [address] [place] [address] [address] [place] [address] PCP - General 08/02/22 documented as of this encounter
--- OUTSIDE RECORDS SUMMARY | 2025-01-17 08:53 | XMS_ITS | Referral Summary ---
Author Organization [employer] ([place], [place], [place], [place]) Address [address] [place] [address] Care Team Providers Care Home Energy Consultant Supervisor Name Role Phone Zaid James MD Primary Care Provider [phone] Encounters Date Type Department Care Team Description 11/13/2024 Travel 11/13/2024 7:30 AM EDT - 11/13/2024 11:01 AM EDT Surgery [facility] Operating Room [address] [place] [address] Anthony Wang MD ROBOTIC REPAIR OF RIGHT LOWER QUADRANT INCISIONAL HERNIA W/ PHASIX ST MESH 11/13/2024 7:36 AM EDT Anesthesia Event [facility] Operating Room [address] [place] [address] Nikia Myrick MD [place], Keith, MD 11/13/2024 5:17 AM EDT - 11/13/2024 11:15 AM EDT Hospital Encounter [facility] Operating Room [address] [place] [address] Anthony Wang MD Discharge Disposition: Home or Self Care 11/07/2024 Travel 11/01/2024 Travel 11/01/2024 7:33 AM EDT - 11/01/2024 11:59 PM EDT Hospital Encounter [facility] Preadmission Testing 1 [place] [id number] Anthony Wang MD Preop testing (Primary Dx) Discharge Disposition: Home or Self Care from Last 3 Months Allergies No known active allergies Medications aspirin 81 MG EC tablet Take 1 tablet (81 mg total) by mouth daily. Active atorvastatin (LIPITOR) 40 MG tablet Take 1 tablet (40 mg total) by mouth daily. 4 Active baclofen (LIORESAL) 5 mg tab Take 1 tablet (5 mg total) by mouth 3 (three) times daily. Active cilostazoL (PLETAL) 100 MG tablet Take 1 tablet (100 mg total) by mouth 2 (two) times daily. 4 Active gabapentin (NEURONTIN) 300 MG capsule Take 1 capsule (300 mg total) by mouth 2 (two) times daily. 4 Active losartan (COZAAR) 50 MG tablet Take 1 tablet (50 mg total) by mouth daily. Active tiotropium bromide (Spiriva Respimat) 2.5 mcg/actuation Mist inhalation Inhale 1 tablet by mouth via inhaler 2 (two) times daily as needed. Active DULoxetine (CYMBALTA) 30 MG capsule Take 1 capsule (30 mg total) by mouth daily. Active albuterol HFA (VENTOLIN HFA) 90 mcg/actuation inhaler Inhale 1 puff by mouth every 6 (six) hours as needed for wheezing. Active pantoprazole (PROTONIX) 20 MG tablet Take 1 tablet (20 mg total) by mouth 2 (two) times daily. Active multivitamin per tablet Take 1 tablet by mouth nightly. Active metFORMIN (GLUCOPHAGE) 850 MG tablet Take 1 tablet (850 mg total) by mouth 2 (two) times daily with breakfast and dinner Look-alike/S ound-alike medication. Active Active Problems Problem Noted Date Diagnosed Date Gastroesophageal reflux disease without esophagi tis 09/03/2024 Peripheral vascular disease 09/03/2024 Primary hypertension 09/03/2024 MELITON (obstructive sleep apnea) 09/03/2024 Smoker 09/03/2024 Diverticulitis large intesti ne w/o perforation or abscess w/bleeding 01/10/2024 Social History Tobacco Use Types Packs/Day Years Used Date Smoking Tobacco: Every Day Cigarettes Smokeless Tobacco: Never Tobacco Cessation:Ready to Q uit: Not Asked; Counseling Given: Not Answered Comments:Smokes 2.5 packs/day Alcohol Use Standard Drinks/Week Comments Yes 1 (1 standard drink = 0.6 oz pur e alcohol) rare [facility] - Mental Health Answer Date Recorde d Little interest or pleasure in doing things Not at all 09/03/2024 Feeling down, depressed, or hopeless Not at all 09/03/2024 Feeling of Stress Not on file 09/03/2024 CHI Intimate Partner Violence Answer Da te Recorded Within the last year, have y ou been afraid of your partner or ex-partner? No 09/03/2024 Within the last year, have y ou been humiliated or emotionally abused in other ways by your partner or ex-partner? No Within the last year, have y ou been kicked, hit, slapped, or otherwise physically hurt by your partner or ex-partner? No 09/03/2024 Within the last year, have y ou been raped or forced to have any kind of sexual activity by your partner or ex-partner? No 09/03/2024 Family and Community Support Answer Korey e Recorded Help with Day to Day Activities Not on file 12/27/2023 Feeling Lonely or Isolated Not on file 12/26 Educational Attainment Answer Date Von rded Speak language other than [place]rugu[place] at home Not on file 12/27/2023 Want help with school or training Not on file 12/27/2023 Substance Use Answer Date Recorded Used prescription meds for non-medical reasons N ot on file 12/27/2023 Used illegal drugs past 12 months Not on file 12/27/2023 Sex and Gender Information Value Date Recorded Sex Assigned at Male 12/21/2021 3:32 PM CDT Legal Sex Male 3:32 PM CDT Gender Identity Male 12/21/2021 3:32 PM CDT Sexual Orientation Not on file Last Filed Vital Signs Vital Sign Reading Time Taken Comments Blood Pressure 110/68 11/13/2024 11:03 AM EDT Pulse 70 11/13/2024 10:54 AM EDT Temperature 36.7 C (98 F) 11/13/2024 10:38 AM EDT Respiratory Rate 17 11/13/2024 10:54 AM EDT Oxygen Saturation 98% 11/13/2024 10:54 AM EDT Inhaled Oxygen Concentration 21% 01/11/2024 1 2:32 AM EDT Weight 85.3 kg (188 lb 0.8 oz) 11/13/2024 7:16 A M EDT Height 179.1 cm (5' 10.5 ) 11/01/2024 8:14 AM ED T Body Mass Index 26.6 11/01/2024 8:14 AM EDT Plan of Treatment Not on file Medical Devices Implanted Type Area Commissioning Manager Device Identifier Shelf Expiration Date Model / Serial / Lot Mesh St Phasix 4.5in Rnd Echo [id number] - [id number] Implanted:Qty : 1 on 11/13/2024 by Anthony Wang MD at [facility] IMPLANTS N/A: Abdomen CR BARD:DAVOL 02/20/2025 [id number] / / [id number] Procedures Procedure Name Priority Date/Time Associated Diagnosis Comments NOVA GLUCOSE POC Routine 11/13/2024 9:25 AM EDT ANESTHESIA INTUBATION Routine 11/13/2024 7:49 AM EDT NV LAPAROSCOPY SURG RPR INITIAL INGUINAL HERNIA 11/13/2024 7:36 AM EDT Recurrent ventral hernia Case Notes IN 0530 , 3h(R), [facility]ERAS HC TAP BLOCK BILATERAL (BLK RM) Routine 11/13/2024 7:00 AM EDT ISTAT GLUCOSE POC Routine 11/13/2024 6:4 3 AM EDT TYPE AND SCREEN ([place] BKR) STAT 11/13/2024 6:30 AM EDT COMPREHENSIVE METABOLIC PANEL Routine 11/01/2024 8:29 AM EDT Preop testing HEMOGLOBIN A1C STAT 11/01/2024 8:29 AM EDT Preop testing CBC W/ AUTO DIFF STAT 11/01/2024 8:29 AM EDT Preop testing from Last 3 Months Results * (ABNORMAL) Glucose, Nova Meter (11/13/2024 9:25 AM EDT) POC-GLUCOSE 202(H) 70 - 110 mg/dL 11/13/2024 9:26 AM EDT [facility] Comment: In the event of poor peripheral blood flow, venous or arterial blood should be used due to the potential of erroneous results. Notified Nurse RBV Director Of Admissions [phone] 11/13/2024 9:26 AM EDT [facility] Blood WHOLE BLOOD / Unknown 11/13/2024 9:25 AM EDT 11/13/2024 9:26 AM EDT Narrative [facility] - 11/13/2024 9:26 AM EDT Director Of Admissions ID is - [id number] Anthony Wang MD POINT OF CARE TEST ORDERABLES Fi nal Result [facility] [address] [phone] * AN SINGLE LUMEN INTUBATION (11/13/2024 7:49 AM EDT) jT Smith CRNA - 11/13/2024 7:49 AM EDT Tj Lilly CRNA 11/13/2024 8:02 AM Intubation Authorized by: Nikia Myrick MD Performed by: Tj Lilly CRNA Date/Time: 11/13/2024 7:49 AM Urgency: elective Indications and Patient Condition Indications for airway management: anesthesia and airway protection Spontaneous Ventilation: absent Sedation level: general anesthesia Preoxygenated: yes Patient position: sniffing Mask difficulty assessment: 1 - vent by mask Planned trial extubation: yes Final Airway Details Final airway type: endotracheal airway Endotracheal tube type: ETT Cuffed: yes Successful intubation technique: direct laryngoscopy Facilitating devices/methods: intubating stylet and anterior pressure/BURP Endotracheal tube insertion site: oral Blade: Joie Blade size: #4 ETT size (mm): 7.5 Cormack-Lehane Classification: grade IIa - partial view of glottis Placement verified by: chest auscultation and capnometry Cuff volume (mL): 8 Measured from: lips ETT to lips (cm): 23 Number of attempts at approach: 1 Additional Comments Atraumatic Intubation. Lips, gums, and dentition unchanged and as preop. Bilateral BS and chest rise, ETCO2 confirmed Nikia Myrick MD ANESTHESIA ORDERABLES Martina l Result * HC TAP BLOCK BILATERAL (BLK RM) (11/13/2024 7:00 AM EDT) Christine Ceja MD - 11/13/2024 7:00 AM EDT Christine Llanos MD 11/13/2024 7:24 AM Peripheral Nerve Block Authorized by: Christine Llanos MD Performed by: Christine Llanos MD Patient location during procedure: pre-op Start time: 11/13/2024 7:00 AM End time: 11/13/2024 7:15 AM Reason for block: at surgeon's request and post-op pain management Preanesthetic Checklist Completed: patient identified, site marked, risks and benefits discussed, pre-op evaluation and timeout performed Peripheral Block Patient position: supine Prep: ChloraPrep Patient monitoring: heart rate, ekg monitor and continuous pulse ox Block type: TAP Laterality: bilateral Injection technique: single-shot Guidance: ultrasound guided Needle Needle type: stimuplex 4 in needle. Needle gauge: 20 G Needle length: 10 cm Needle localization: ultrasound guidance Catheter type: open end Assessment Injection assessment: negative aspiration for heme and incremental injection (local visualized between fascia layers) Paresthesia pain: none Heart rate change: no Slow fractionated injection: yes Additional Notes Bupivacaine 0.25% 28.35 ml Clonidine 50 mcg 0.5 ml Dexamethasone 4 mg - 1 ml Epinephrine 1:1000 0.15 ml us Christine Llanos MD ANESTHESIA ORDERABLES Final Re sult * (ABNORMAL) Glucose, iSTAT Meter (11/13/2024 6:43 AM EDT) POC-GLUCOSE 134(H) 70 - 105 mg/dL 11/13/2024 7:25 AM EDT [facility] Blood 11/13/2024 6:43 AM EDT 11/13/2024 7:25 AM EDT Narrative [facility] - 11/13/2024 7:25 AM EDT Director Of Admissions ID is - [id number] us Not In System Provider POINT OF CARE TEST ORDERA BLES Final Result Performing Organization Address [facility]/ZIP Co de Phone Number [facility] [address] [phone] * Type and Screen (11/13/2024 6:30 AM EDT) ABO/Rh O Positive 11/13/2024 6:16 AM EDT [facility] ([place]) Antibody Screen Negative 11/13/2024 6:16 AM EDT [facility] ([place]) HISTCHK HIST CHECK PERFORMED 11/13/2024 6:16 AM EDT [facility] ([place]) Blood Venipuncture / Unknown 11/13/2024 6:30 AM EDT 11/13/2024 6:47 AM EDT us Anthony Wang MD [facility] TEST ORDERABLES F inal Result Performing Organization Address City/[facility]/ZIP Co de Phone Number [facility] ([place]) [address] [phone] * (ABNORMAL) CBC with automated diff (11/01/2024 8:29 AM EDT) WBC 16.7(H) 4.2 - 9.1 K/ L 11/01/2024 8:56 AM EDT [facility] RBC 5.06 4.63 - 6.08 M/ L 11/01/2024 8:56 AM EDT [facility] Hemoglobin 16.3 13.7 - 17.5 GM/DL 11/01/2024 8:56 AM EDT [facility] Hematocrit 47.7 40.1 - 51.0 % 11/01/2024 8:56 AM EDT [facility] MCV 94(H) 79 - 92 fL 11/01/2024 8:56 AM EDT [facility] MCH 32.2 25.7 - 32.2 pg 11/01/2024 8:56 AM EDT [facility] MCHC 34.2 32.3 - 36.5 GM/DL 11/01/2024 8:56 AM EDT [facility] RDW 13.5 11.6 - 14.4 % 11/01/2024 8:56 AM EDT [facility] Platelets 375 140 - 375 K/CU MM 11/01/2024 8:56 AM EDT [facility] MPV 8.9(L) 9.4 - 12.4 fL 11/01/2024 8:56 AM EDT [facility] % Neutros 76(H) 34 - 68 % 11/01/2024 8:56 AM EDT [facility] % Lymphs 13(L) 22 - 53 % 11/01/2024 8:56 AM EDT [facility] % Monos 6 5 - 12 % 11/01/2024 8:56 AM EDT [facility] % Eos 4 1 - 7 % 11/01/2024 8:56 AM EDT [facility] % Baso 1 0 - 1 % 11/01/2024 8:56 AM EDT [facility] NRBC Absolute <0.01 0 - 0.012 K/ul 11/01/2024 8:56 AM EDT [facility] # Neutros 12.63(H) 1.78 - 5.38 K/ L 11/01/2024 8:56 AM EDT [facility] # Lymphs 2.13 1.32 - 3.57 K/ L 11/01/2024 8:56 AM EDT [facility] # Monos 1.06(H) 0.30 - 0.82 K/ L 11/01/2024 8:56 AM EDT [facility] # Eos 0.62(H) 0.04 - 0.54 K/ L 11/01/2024 8:56 AM EDT [facility] # Baso 0.08 0.01 - 0.08 K/ L 11/01/2024 8:56 AM EDT [facility] Immature Granulocytes-Re lative 0.80(H) 0.01 - 0.43 % 11/01/2024 8:56 AM EDT [facility] # IG 0.14(H) 0.00 - 0.03 K/uL 11/01/2024 8:56 AM EDT [facility] Blood Venipuncture / Unknown 11/01/2024 8:29 AM EDT 11/01/2024 8:52 AM EDT Narrative [facility] - 11/01/2024 8:56 AM EDT When CBC w/ Auto Diff is ordered the lab will add a Manual Differential as a quality check at no additional charge if: Lymphocytes greater than seventy five percent with normal or increased WBC Monocytes greater than Fifteen percent Basophil greater than four percent Bands >10% or several immature myeloids are seen on scan Blast? Flag noted Atypical Lymph flag noted Anthony Wang MD LAB BLOOD ORDERABLES Final Resul t Performing Organization Address [facility] de Phone Number [facility] [address] [phone] * (ABNORMAL) Hemoglobin A1c (11/01/2024 8:29 AM EDT) Hemoglobin A1C 7.9(H) 4.0 - 5.6 % 11/01/2024 9:20 AM EDT [facility] Comment: Hemoglobin A1C levels are related to mean glucose during the preceding 2-3 months. Less than 7% demonstrates glycemic control in diabetic patients. Hemoglobin AlC % Suggested Diagnosis > or = 6.5 Diabetic 5.7 - 6.4 Prediabetic <5.7 Non-diabetic eAVG Glucose 180.03(H) 70 - 126 mg/dL 11/01/2024 9:20 AM EDT [facility] Blood Venipuncture / Unknown 11/01/2024 8:29 AM EDT 11/01/2024 8:52 AM EDT Anthony Wang MD LAB BLOOD ORDERABLES Final Resul t Performing Organization Address [facility] Co de Phone Number [facility] [address] [place] [address] * (ABNORMAL) Comprehensive metabolic panel (11/01/2024 8:29 AM EDT) Sodium 139 136 - 145 meq/L 11/01/2024 9:12 AM [facility] Potassium 3.9 3.4 - 5.1 meq/L 11/01/2024 9:12 AM [facility] Chloride 105 98 - 112 meq/L 11/01/2024 9:12 AM [facility] CO2 28 22 - 29 meq/L 11/01/2024 9:12 AM [facility] Calcium 8.7 8.4 - 10.2 mg/dL 11/01/2024 9:12 AM [facility] Glucose 116(H) 74 - 100 mg/dL 11/01/2024 9:12 AM [facility] BUN 21.5 8.4 - 25.7 mg/dL 11/01/2024 9:12 AM [facility] Creatinine 1.10 0.72 - 1.25 mg/dL 11/01/2024 9:12 AM [facility] BUN/Creatinine 20 8 - 20 11/01/2024 9:12 AM [facility] eGFR (mL/min/1.73m2) 78 >=60 mL/min/1. 73m2 11/01/2024 9:12 AM [facility] Albumin 3.9 3.5 - 5.0 g/dL 11/01/2024 9:12 AM [facility] Alkaline Phosphatase 111 40 - 150 U/L 11/01/2024 9:12 AM [facility] ALT 36 <=45 U/L 11/01/2024 9:12 AM [facility] Comment: ALT2 reagent used for testing does not contain P5P supplementation and therefore may miss ALT elevations in patients with B6 deficiency. This population may be as high as 10% in the [place], with risk factors including malabsorption, drug interactions, and alcoholic hepatitis. AST 41(H) 11 - 34 U/L 11/01/2024 9:12 AM [facility] Comment: AST2 reagent used for testing does not contain P5P supplementation and therefore may miss AST elevations in patients with B6 deficiency. This population may be as high as 10% in the [place], with risk factors including malabsorption, drug interactions, and alcoholic hepatitis. Total Bilirubin 0.9 0.2 - 1.2 mg/dL 11/01/2024 9:12 AM EDT [facility] Protein, Total 7.4 6.4 - 8.3 g/dL 11/01/2024 9:12 AM EDT [facility] Globulin 3.5 2.5 - 4.1 g/dL 11/01/2024 9:12 AM EDT [facility] Anion Gap 10 4 - 12 11/01/2024 9:12 AM EDT [facility] A/G Ratio 1.1 0.7 - 1.9 11/01/2024 9:12 AM EDT [facility] Osmolality Calc 281.7 mOsm/kg 9:12 AM EDT [facility] Blood Venipuncture / Unknown 11/01/2024 8:29 AM EDT 11/01/2024 8:52 AM EDT Nikia Myrick MD LAB BLOOD ORDERABLES Final Result Performing Organization Address City/State/[facility] Co de Phone Number [facility] [address] [phone] from Last 3 Months Insurance BLUE CROSS/BLUE SHIELD Advance Directives For more information, please contact: [phone] * Full Code (Latest Code Status on File) Date Activated Date Inactivated Comments 01/10/2024 8:51 PM 01/11/2024 2:45 PM Healthcare Agents on File Name Relationship Healthcare Agent Relationship Communication Aldair Turcios Relative Healthcare Decision-Maker Lanre Turcios Brother First Alternate Healthcare Decision-Maker [email or web address] Teams Home Energy Consultant Supervisor Relationship Specialty Start Date End Date Zaid James MD [facility] [address] PCP - General Family Medicine 01/04/24
--- OUTSIDE RECORDS SUMMARY | 2025-01-17 08:53 | XMS_ITS | Clinical Summary ---
Author Organization [facility] ([place], [place], [place], [place]) Address [address] [place] [address] Care Team Providers Care Rv Detailer Name Role Phone Zaid James MD Primary Care Provider [phone] Allergies No known active allergies Medications aspirin 81 MG EC tablet Take 1 tablet (81 mg total) by mouth daily. Active atorvastatin (LIPITOR) 40 MG tablet Take 1 tablet (40 mg total) by mouth daily. 4 Active baclofen (LIORESAL) 5 mg tab Take 1 tablet (5 mg total) by mouth 3 (three) times daily. 4 Active cilostazoL (PLETAL) 100 MG tablet Take 1 tablet (100 mg total) by mouth 2 (two) times daily. 4 Active gabapentin (NEURONTIN) 300 MG capsule Take 1 capsule (300 mg total) by mouth 2 (two) times daily. 4 Active losartan (COZAAR) 50 MG tablet Take 1 tablet (50 mg total) by mouth daily. 4 Active tiotropium bromide (Spiriva Respimat) 2.5 mcg/actuation [...] ne w/o perforation or abscess w/bleeding 01/10/2024 Encounters Date Type Department Care Team Description 11/13/2024 7:36 AM EDT Anesthesia Event [facility] Operating Room 1 [place] [address] Nikia Myrick MD [place], Keith, MD 11/13/2024 7:30 AM EDT - 11/13/2024 11:01 AM EDT Surgery [facility] Operating Room 1 [place] [address] Anthony Wang MD ROBOTIC REPAIR OF RIGHT LOWER QUADRANT INCISIONAL HERNIA W/ PHASIX ST MESH 11/13/2024 5:17 AM EDT - 11/13/2024 11:15 AM EDT Hospital Encounter [facility] Operating Room 1 [place] [address] Anthony Wang MD Discharge Disposition: Home or Self Care 11/13/2024 Travel 11/07/2024 Travel 11/01/2024 7:33 AM EDT - 11/01/2024 11:59 PM EDT Hospital Encounter [facility] Preadmission Testing 1 [place] [address] Anthony Wang MD Preop testing (Primary Dx) Discharge Disposition: Home or Self Care 11/01/2024 Travel from Last 3 Months Social History Tobacco Use Types Packs/Day Years Used Date Smoking Tobacco: Every Day Cigarettes Smokeless Tobacco: Never Tobacco Cessation:Ready to Q uit: Not Asked; Counseling Given: Not Answered Comments:Smokes 2.5 packs/day Alcohol Use Standard Drinks/Week Comments Yes 1 (1 standard drink = 0.6 oz pur e alcohol) rare [facility] - Mental Health Answer Date Recorde [...] Date Von rded Speak language other than Monegasque at home Not on file 12/27/2023 Want [...] 11/01/2024 8:14 AM EDT Plan of Treatment Health Maintenance Due Date Last Done Comments CT Colonography 1966 Colonoscopy 1966 Colorectal Cancer Screening 1966 FOBT/FIT 1966 Fit-DNA (Cologuard) 1966 Sigmoidoscopy 1966 Tobacco Cessation Counseling and Screening (12+) 1978 HIV Screening 1981 Hepatitis C Screening 02/01/1984 Lipid Panel 2001 COVID-19 VACCINE (2023-2 5 season) 2024 05/15/2023, 01/11/2022, 04/19/2021, Additional history exists Influenza Vaccine (#1) 2025 Depression Screening (12+) 09/03/2025 09/03/2024 DTAP/TDAP/TD VACCINES (4 - T d or Tdap) 06/05/2031 06/05/2021, 09/24/2015, 02/26/2004 Shingles Vaccine (Zoster) Completed 07/14/2021, 12/2020 Pneumococcal 50+ years Completed 03/01/2022 Medical Devices Implanted Type Area Member Services Coordinator Device Identifier Shelf Expiration Date Model / Serial / Lot Mesh St Phasix 4.5in Rnd Echo [id number] - [id number] Implanted:Qty : 1 on 11/13/2024 by Anthony Wang MD at [facility] IMPLANTS N/A: Abdomen CR BARD:DAVOL 02/20/2025 [id number] / / [id number] Procedures Procedure Name Priority Date/Time Associated Diagnosis Comments NOVA GLUCOSE POC Routine 11/13/2024 9:25 AM EDT ANESTHESIA INTUBATION Routine 11/13/2024 7:49 AM EDT [place] LAPAROSCOPY SURG RPR INITIAL INGUINAL HERNIA 11/13/2024 7:36 AM EDT Recurrent ventral hernia Case Notes [place] 529 , 3h(R), [facility] TAP BLOCK BILATERAL [...] Glucose, Nova Meter (11/13/2024 9:25 AM EDT) [facility] POC-GLUCOSE 202(H) 70 - 110 mg/dL 11/13/2024 9:26 AM EDT [facility] Comment: In the event of poor peripheral blood flow, venous or arterial blood should be used due to the potential of erroneous results. Notified Nurse RBV Dietary Cook [phone] 11/13/2024 9:26 AM EDT [facility] Blood WHOLE BLOOD / Unknown 11/13/2024 9:25 AM EDT 11/13/2024 9:26 AM EDT Narrative [facility] - 11/13/2024 9:26 AM EDT Dietary Cook ID is - [id number] us Anthony Wang MD POINT OF CARE TEST ORDERABLES Fi nal Result [facility] 1 [place] [address], [facility] [phone] * AN SINGLE LUMEN INTUBATION (11/13/2024 7:49 AM EDT) Tj Smith CRNA - 11/13/2024 7:49 AM EDT [...] Bilateral BS and chest rise, ETCO2 confirmed us Nikia Myrick MD ANESTHESIA ORDERABLES Martina l [...] supine Prep: ChloraPrep Patient monitoring: heart rate, panel monitor and continuous pulse ox Block type: [...] ml Epinephrine 1:1000 0.15 ml us Christine Cornea ANESTHESIA ORDERABLES Final Re sult * (ABNORMAL) Glucose, iSTAT Meter (11/13/2024 6:43 AM EDT) POC-GLUCOSE 134(H) 70 - 105 mg/dL 11/13/2024 7:25 AM EDT [facility] Blood 11/13/2024 6:43 AM EDT 11/13/2024 7:25 AM EDT Narrative [facility] - 11/13/2024 7:25 AM EDT Dietary Cook ID is - [id number] us Not In System Provider POINT OF CARE TEST ORDERA BLES Final Result [facility] [address] [place] [address] * Type and Screen (11/13/2024 6:30 AM EDT) ABO/Rh O Positive 11/13/2024 6:[address] [facility] ([place]) Antibody Screen Negative 11/13/2024 6:[address] [facility]OD [facility] ([place]) HISTCHK HIST CHECK PERFORMED 11/13/2024 6:16 AM EDT [facility] ([place]) Blood Venipuncture / Unknown 11/13/2024 6:30 AM EDT 11/13/2024 6:47 AM EDT Anthony Wang MD [facility] TEST ORDERABLES F inal Result [facility] - [facility]OD [facility] ([place]) 1 [facility] [place] [address], [facility] [phone] * (ABNORMAL) CBC with automated diff (11/01/2024 8:29 AM EDT) WBC 16.7(H) 4.2 - 9.1 K/ L 11/01/2024 8:56 AM EDT [facility] RBC 5.06 4.63 - 6.08 M/ L 11/01/2024 8:56 AM EDT [facility] Hemoglobin 16.3 13.7 - 17.5 GM/DL 11/01/2024 8:56 AM EDT [facility] Hematocrit 47.7 40.1 - 51.0 % 11/01/2024 8:56 AM EDT [facility] MCV 94(H) 79 - 92 fL 11/01/2024 8:56 AM EDT [facility] MCH 32.2 25.7 - 32.2 pg 11/01/2024 8:56 AM EDT [facility] MCHC 34.2 32.3 - 36.5 GM/DL 11/01/2024 8:56 AM EDT [facility] RDW 13.5 11.6 - 14.4 % 11/01/2024 8:56 AM EDT [facility] Platelets 375 140 - 375 K/CU MM 11/01/2024 8:56 AM EDT [facility] MPV 8.9(L) 9.4 - 12.4 fL 11/01/2024 8:56 AM EDT [facility] % Neutros 76(H) 34 - 68 % 11/01/2024 8:56 AM EDT [facility] % Lymphs 13(L) 22 - 53 % 11/01/2024 8:56 AM EDT [facility] % Monos 6 5 - 12 % 11/01/2024 8:56 AM EDT [facility] % Eos 4 1 - 7 % 11/01/2024 8:56 AM EDT [facility] % Baso 1 0 - 1 % 11/01/2024 8:56 AM EDT [facility] NRBC Absolute <0.01 0 - 0.012 K/ul 11/01/2024 8:56 AM EDT [facility] # Neutros 12.63(H) 1.78 - 5.38 K/ L 11/01/2024 8:56 AM EDT [facility] # Lymphs 2.13 1.32 - 3.57 K/ L 11/01/2024 8:56 AM EDT [facility] # Monos 1.06(H) 0.30 - 0.82 K/ L 11/01/2024 8:56 AM EDT [facility] # Eos 0.62(H) 0.04 - 0.54 K/ L 11/01/2024 8:56 AM EDT [facility] # Baso 0.08 0.01 - 0.08 K/ L 11/01/2024 8:56 AM EDT [facility] Immature Granulocytes-Re lative 0.80(H) 0.01 - 0.43 % 11/01/2024 8:56 AM EDT [facility] # IG 0.14(H) 0.00 - 0.03 K/uL 11/01/2024 8:56 AM EDT [facility] Blood Venipuncture / Unknown 11/01/2024 8:29 AM EDT 11/01/2024 8:52 AM EDT Narrative [facility] - 11/01/2024 8:56 AM EDT When [...] Blast? Flag noted Atypical Lymph flag noted us Anthony Wang MD LAB BLOOD ORDERABLES Final Resul t [facility] [address] [phone] * (ABNORMAL) Hemoglobin A1c (11/01/2024 8:29 AM EDT) Hemoglobin A1C 7.9(H) 4.0 - 5.6 % 11/01/2024 9:20 AM EDT [facility] Comment: Hemoglobin A1C levels are related to mean glucose during the preceding 2-3 months. Less than 7% demonstrates glycemic control in diabetic patients. Hemoglobin AlC % Suggested Diagnosis > or = 6.5 Diabetic 5.7 - 6.4 Prediabetic <5.7 Non-diabetic eAVG Glucose 180.03(H) 70 - 126 mg/dL 11/01/2024 9:20 AM EDT [facility] Blood Venipuncture / Unknown 11/01/2024 8:29 AM EDT 11/01/2024 8:52 AM EDT us Anthony Wang MD LAB BLOOD ORDERABLES Final Resul t Performing Organization Address City/State/[facility] Co de Phone Number [facility] [address] [phone] * (ABNORMAL) Comprehensive metabolic panel (11/01/2024 8:29 AM EDT) Sodium 139 136 - 145 meq/L 11/01/2024 9:12 AM EDT [facility] Potassium 3.9 3.4 - 5.1 meq/L 11/01/2024 9:12 AM EDT [facility] Chloride 105 98 - 112 meq/L 11/01/2024 9:12 AM EDT [facility] CO2 28 22 - 29 meq/L 11/01/2024 9:12 AM EDT [facility] Calcium 8.7 8.4 - 10.2 mg/dL 11/01/2024 9:12 AM EDT [facility] Glucose 116(H) 74 - 100 mg/dL 11/01/2024 9:12 AM EDT [facility] BUN 21.5 8.4 - 25.7 mg/dL 11/01/2024 9:12 AM EDT [facility] Creatinine 1.10 0.72 - 1.25 mg/dL 11/01/2024 9:12 AM [facility] BUN/Creatinine 20 8 - 20 11/01/2024 9:12 AM [facility] eGFR (mL/min/1.73m2) 78 >=60 mL/min/1. 73m2 11/01/2024 9:12 AM [facility] Albumin 3.9 3.5 - 5.0 g/dL 11/01/2024 9:12 AM [facility] Alkaline Phosphatase 111 40 - 150 U/L 11/01/2024 9:12 AM [facility] ALT 36 <=45 U/L 11/01/2024 9:12 AM [facility] Comment: ALT2 reagent used for testing does not contain P5P supplementation and therefore may miss ALT elevations in patients with B6 deficiency. This population may be as high as 10% in the [place], with risk factors including malabsorption, drug interactions, and alcoholic hepatitis. AST 41(H) 11 - 34 U/L 11/01/2024 9:12 AM [facility] Comment: AST2 reagent used for testing does not contain P5P supplementation and therefore may miss AST elevations in patients with B6 deficiency. This population may be as high as 10% in the [place], with risk factors including malabsorption, drug interactions, and alcoholic hepatitis. Total Bilirubin 0.9 0.2 - 1.2 mg/dL 11/01/2024 9:12 AM [facility] Protein, Total 7.4 6.4 - 8.3 g/dL 11/01/2024 9:12 AM [facility] Globulin 3.5 2.5 - 4.1 g/dL 11/01/2024 9:12 AM [facility] Anion Gap 10 4 - 12 11/01/2024 9:12 AM [facility] A/G Ratio 1.1 0.7 - 1.9 11/01/2024 9:12 AM [facility] Osmolality Calc 281.7 mOsm/kg 9:12 AM [facility] Blood Venipuncture / Unknown 11/01/2024 8:29 AM EDT 11/01/2024 8:52 AM EDT us Nikia Myrick MD LAB BLOOD ORDERABLES Final Result [facility] [address] [place] [address], [facility] [phone] from Last 3 Months Insurance BLUE CROSS/BLUE SHIELD Advance Directives For more information, please contact: [phone] * Full Code (Latest Code Status on File) Date Activated Date Inactivated Comments 01/10/2024 8:51 PM 01/11/2024 2:45 PM Healthcare Agents on File Name Relationship Healthcare Agent Relationship Communication Aldair Turcios Relative Healthcare Decision-Maker Lanre Turcios Brother First Alternate Healthcare Decision-Maker [email or web address] Care Teams Rv Detailer Relationship Specialty Start Date End Date Zaid James MD [address] [address] PCP - General Family Medicine 01/04/24
--- OUTSIDE RECORDS SUMMARY | 2025-01-17 08:53 | XMS_ITS | Clinical Summary ---
[facility] Address [address] [place] [address] Care Team Providers Care Supply Service Worker Name Role Phone Zaid James MD Primary Care Provider [phone] Allergies No known active allergies Medications amLODIPine (NORVASC) 2.5 MG tablet Take 1 tablet by mouth. Active traMADol (ULTRAM) 50 MG tablet Take 1 tablet by mouth Every 6 (Six) Hours As Needed for Moderate Pain . 20 tablet 09/17/2019 11:32 AM EDT 0 Active Additional Information Patient not taking.Reported on 12/17/2024 cilostazol (PLETAL) 100 MG tablet TAKE 1 TABLET BY MOUTH TWICE DAILY (30 MINUTES BEFORE OR 2 HOURS AFTER BREAKFAST AND DINNER) Active DULoxetine (CYMBALTA) 30 MG capsule Take 1 capsule by mouth Daily. Active pantoprazole (PROTONIX) 20 MG EC tablet TAKE 1 TABLET BY MOUTH TWICE DAILY 30 MINUTES BEFORE BREAKFAST AND DINNER Active Baclofen (LIORESAL) 5 MG tablet Take 1 tablet by mouth 3 (Three) Times a Day. Active amoxicillin-cla vulanate (AUGMENTIN) 875-125 MG per tablet Take 1 tablet by mouth 2 (Two) Times a Day. 14 tablet 4 Active Additional Information Patient not taking.Reported on 12/17/2024 gabapentin (NEURONTIN) 300 MG capsuleIndicati ons:Vascular occlusion Take 1 capsule by mouth 3 (Three) Times a Day. 90 capsule 3 5 Active clopidogrel (PLAVIX) 75 MG tablet Take 1 tablet by mouth once daily 90 tablet 5 Active atorvastatin (LIPITOR) 40 MG tablet Take 1 tablet by mouth Daily. 5 Active aspirin 81 MG EC tablet Take 1 tablet by mouth Daily. Active Farxiga 10 MG tablet Take 10 mg by mouth Daily. 5 03/11/20 Active losartan (COZAAR) 50 MG tablet Take 1 tablet by mouth Daily. Active meloxicam (MOBIC) 15 MG tablet Take 1 tablet by mouth Daily. 5 01/10/20 25 Active Problems Problem Noted Date Diagnosed Date Peripheral arterial disease with history of revascularization 12/17/2024 Carotid artery stenosis 12/17/2024 Vascular occlusion 09/16/2019 Arterial stent thrombosis, initial encounter Encounters Date Type Department Care Team Description 12/17/2024 9:30 AM EDT Office Visit [facility] V[facility]ULAR SURGERY [address] [place] [address] [address] [place] [address] Carmen Madrid APRN Peripheral arterial disease with history of revascularization (Primary Dx); Bilateral carotid artery stenosis 12/17/2024 7:36 AM EDT - 12/17/2024 11:59 PM EDT Hospital Encounter [facility] NON INVASIVE [facility]ULAR LAB[facility]ATORY [address] [facility] [address] [place] [address] Atherosclerosis of right iliac artery Discharge Disposition: Home or Self Care 12/17/2024 7:35 AM EDT - 12/17/2024 11:59 PM EDT Hospital Encounter [facility] NON INVASIVE [facility]ULAR LABOR[facility]ORY [address] [place] [address] [address] [place] [address] Stenosis of carotid artery, unspecified laterality Discharge Disposition: Home or Self Care 12/17/2024 7:35 AM EDT - 12/17/2024 11:59 PM EDT Hospital Encounter [facility] NON INVASIVE [facility] [address] [place] [address] [address] [place] [address] Atherosclerosis of right iliac artery Discharge Disposition: Home or Self Care 12/17/2024 Travel from Last 3 Months Family History Medical History Relation Name Comments Cancer Father Diabetes Father Cancer Maternal Grandfather Cancer Mother Relation Name Status Comments Father Maternal Grandfather Mother Kidney Social History Tobacco Use Types Packs/Day Years [...] Pulse 102 12/17/2024 8:53 AM EDT Temperature 37.6 C (99.7 F) 10/07/2023 5:06 PM EDT Respiratory Rate 17 10/07/2023 5:06 PM EDT Oxygen Saturation 94% 10/07/2023 8:00 PM EDT Inhaled Oxygen Concentration - - Weight 84.5 kg (186 lb 3.2 oz) 12/17/2024 8:53 A M EDT Height 177.8 cm (5' 10 ) 12/17/2024 8:53 AM EDT Body Mass Index 26.72 12/17/2024 8:53 AM EDT Plan of Treatment Upcoming Encounters Date Type Department Care Team (Late st Contact Info) Description 12/23/2025 8:00 AM EDT Appointment [facility] NON INVASIVE VASCULAR LABORATORY [address] [address] 12/23/2025 8:30 AM EDT Appointment [facility] NON INVASIVE [facility]ASCULAR LABORATORY [address] [address] 12/23/2025 9:15 AM EDT Office Visit [facility] V[facility] SURGERY [address] [address] Carmen Madrid, MEDICARE INSURANCE SPECIALIST [address] [place] [address] Scheduled Procedures Name Priority Associated Diagnoses Date/Ti me THROMBOLYSIS LOWER EXTREMITY Arterial stent thrombosis, initial encounter Health Maintenance Due Date Last Done Comments DIABETIC FOOT EXAM 02/01/1976 URINE MICROALBUMIN-CREATININ E RATIO (uACR) 02/01/1976 Hepatitis B (1 of 3 - 19+ 3- dose series) 1985 COLOGUARD 2011 COLON CANCER SCREENING 5 YEA R SIGMOIDOSCOPY 2011 CT COLONOGRAPHY 2011 FECAL OCCULT BLOOD TEST 2011 FIT Testing (1 year) 2011 LUNG CANCER SCREENING 02/01/2016 ANNUAL PHYSICAL 01/24/2017 HEPATITIS C SCREENING 01/24/2017 DIABETIC EYE EXAM 02/03/2022 02/03/2021, 09/05/2019 INFLUENZA VACCINE 03/26/2025 04/17/2024, , 08/18/2022, Additional history exists HEMOGLOBIN A1C 05/04/2025 11/01/2024, 05/0 02/2025, 09/03/2024, Additional history exists COLONOSCOPY 09/22/2029 09/23/2019 COLORECTAL CANCER SCREENING 09/22/2029 TDAP/TD VACCINES (6 - Td or Tdap) 04/17/2034 04/17/2024, 06/05/2021, 09/24/2015, Additional history exists ZOSTER VACCINE Completed 07/14/2021, 04/01/2021 Pneumococcal Vaccine 50+ Completed 03/01/2022 COVID-19 Vaccine Completed 04/17/2024, , 01/11/2022, Additional history exists Medical Devices Implanted Type Area Architectural Examiner Device Identifier Shelf Expiration Date Model / Serial / Lot Stentgr Endoprosth Viabahn Vbx Exp 7f [id number] - [id number] - [id number] Implanted:Qty: 1 on 09/16/2019 by John Pettit MD at [facility] Implant [employer] 04/15/2022 [id number] / [id number] / NA Procedures Procedure Name Priority Date/Time Associated Diagnosis Comments DUPLEX AORTA IVC ILIAC GRAFT LIMITED CAR Routine 12/17/2024 8:46 AM EDT Atherosclerosis of right iliac artery DOPPLER ANKLE BRACHIAL INDEX SINGLE LEVEL CAR Routine 12/17/2024 8:07 AM EDT Atherosclerosis of right iliac artery DUPLEX CAROTID BILATERAL CAR - PERFORMED PROCEDURE Routine 12/17/2024 8:07 AM EDT Stenosis of carotid artery, unspecified laterality from Last 3 Months Results * Duplex Aorta IVC Iliac Graft [...] second stent present in the left aiden. John Pettit MD CV VASCULAR ORDERABLES Final Result * Doppler Ankle Brachial Index Single Level CAR (12/17/2024 8:07 AM EDT) Upper arterial right arm brachial sys max 108 Upper arterial left arm brachial sys max 112 RIGHT POST TIBIAL SYS MAX 98 LEFT POST TIBIAL SYS MAX 98 RIGHT DORSALIS PEDIS SYS MAX 108 LEFT DORSALIS PEDIS SYS MAX 88 RIGHT OJSELYN RATIO 0.96 LEFT JOSELYN RATIO 0.88 Anatomical [...] 1+. Multiphasic, high resistive arterial flow noted. John Pettit MD CV VASCULAR ORDERABLES Final Result * DUPLEX CAROTID BILATERAL CAR - PERFORMED [...] plaque present. Left Vertebral: Antegrade flow noted. us John Pettit MD CV VASCULAR ORDERABLES Final Result from Last 3 Months Insurance [facility] [place] Advance Directives * CPR (Attempt to Resuscitate) (Latest Code Status on File) Date Activated Date Inactivated Comments 09/16/2019 12:09 AM 09/17/2019 2:14 PM Question Answer Comments Code Status (Patient has no pulse and is not breathing): CPR (Attempt to Resuscitate) Medical Interventions (Patie nt has pulse or is breathing): Full Level Of Support Discussed With: Patient Care Teams Supply Service Worker Relationship Specialty Start Date End Date Zaid James MD [address] [facility] [address] [place] [address] PCP - General Family Medicine 07/13/23
--- OUTSIDE RECORDS SUMMARY | 2025-01-17 08:54 | XMS_ITS | Encounter Summary ---
[facility] Address [address] [place] [address] Care Team Providers Care Community Living Coach Name Role Phone Zaid James MD Primary Care Provider [phone] Reason for Visit * Reason Comments Med Refill Encounter Details Date Type Department Care Team (Late st Contact Info) Description 12/27/2023 Refill [facility] VASCULAR SURGERY [address] [place] [phone] Carmen Madrid, CLIENT TECHNICAL PROFESSIONAL [address] [facility] [address] [place] [address] Social History Tobacco Use Types Packs/Day Years Used Date Smoking Tobacco: Former Cigarettes 2 31 1 08/08/1985 - 06/07/2017 Smokeless Tobacco: Never Alcohol Use Standard Drinks/Week [...] Info) Description 12/23/2025 8:00 AM EDT Appointment [facility] NON INVASIVE VASCULAR LABORATORY [address] [facility] [address] [place] [address] 12/23/2025 8:30 AM EDT Appointment [facility] NON INVASIVE [facility]ASCULAR LABORATORY [address] [facility] [address] [place] [address] 12/23/2025 9:15 AM EDT Office Visit [facility]ULAR SURGERY [address] [facility] [address] [place] [address] Carmen Madrid, CLIENT TECHNICAL PROFESSIONAL [address] [facility] [address] [place], [place] [id number] Scheduled Procedures Name Priority Associated Diagnoses Date/Ti me THROMBOLYSIS LOWER EXTREMITY Arterial stent thrombosis, initial encounter documented as of this encounter Visit Diagnoses Not on filedocumented in this encounter Care Teams Community Living Coach Relationship Specialty Start Date End Date Zaid James MD [address] [facility] [address] [place] [address] PCP - General Family Medicine 07/13/23 documented as of this encounter
--- OUTSIDE RECORDS SUMMARY | 2025-01-17 08:54 | XMS_ITS | Encounter Summary ---
[facility] Address [address] [place] [address] Care Team Providers Care Radiation Therapist Name Role Phone Zaid James MD Primary Care Provider [phone] Reason for Visit * Reason Comments Med Refill Encounter Details Date Type Department Care Team (Late Contact Info) Description 07/08/2024 Refill [facility] VASCULAR SURGERY [address] [id number] Carmen Madrid, TORCH BURNER [address] [facility] [address] [place] [address] Vascular occlusion Social History Tobacco Use Types Packs/Day Years [...] Info) Description 12/23/2025 8:00 AM EDT Appointment [facility] NON INVASIVE VASCULAR LABORATORY [address] [facility] [address] [place] [address] 12/23/2025 8:30 AM EDT Appointment [facility] NON INVASIVE VASCULAR LABORATORY [address] [facility] [address] [place] [address] 12/23/2025 9:15 AM EDT Office Visit [facility] VASCULAR SURGERY [address] [facility] [address] [place] [address] Carmen Madrid, TORCH BURNER [address] [facility] [address] [place], [place] [id number] Scheduled Procedures Name Priority Associated Diagnoses Date/Ti me THROMBOLYSIS LOWER EXTREMITY Arterial stent thrombosis, initial encounter documented as of this encounter Visit Diagnoses Diagnosis Vascular occlusion documented in this encounter Care Teams Radiation Therapist Relationship Specialty Start Date End Date Zaid James MD [address] [facility] [address] [place] [address] PCP - General Family Medicine 07/13/23 documented as of this encounter
--- OUTSIDE RECORDS SUMMARY | 2025-01-17 08:54 | XMS_ITS | Data Portability ---
Author Organization [place] - [facility] & GRANT Prince ADMIN Address [address] [place] [id number] Care Team Providers Care Celebrity Manager Name Role Phone CHRISTIE JAMES Primary Care Provider [phone] BRANDON GONZALEZ News Content Specialist Assessment No assessment recorded. Plan of Treatment Reminders Order Date Submit Date Provider Last Modified By Organization Details Last Modified Time Details Appointments 3 MONTH FU 15 2024 08:15A Nicolás James MD Not available Not available Not available Lab HbA1c (hemoglob in A1c), blood 2024 025 [email or web address] [facility], [address], [address], [place], [address], 12/17/2024 15:19:07 albumin/c reatinine , mass ratio, urine 2024 025 [facility], [address], [address], [place], [address], 12/11/2024 11:13:30 PSA, total, serum or plasma 2024 025 [facility], [address], [address], [place], [address], 12/11/2024 11:13:31 urinalysi s, dipstick 2024 025 [email or web address] [facility], [address], [place], [address], 12/10/2024 10:00:24 CMP, serum or plasma 2024 025 [facility], [address], [address], [place], [address], 12/11/2024 11:13:28 lipid panel, serum 2024 025 [facility], [address], [facility] [address], [place], [address], 12/11/2024 11:13:29 Referral None recorded. Procedures None recorded. Surgeries None recorded. Imaging XR, cervical spine, 2 or 3 view 2024 025 [facility] In-House Imaging - [facility], [address], [place], [address], 11/05/2024 10:45:52 XR, cervical spine, 2 or 3 view 2024 025 [email or web address] [facility] (Centralized Scheduling), [address], [place], [address], 11/19/2024 17:01:01 Medication Orders metformin 850 mg tablet 2024 025 [email or web address] [facility], [address] [place], [address], 12/10/2024 11:55:42 atorvasta tin 40 mg tablet 2024 025 [facility], [address] [place], [address], 12/10/2024 09:28:12 metformin 850 mg tablet 2024 025 [facility], [address] [place], [address], 10/07/2024 09:54:36 metformin 500 mg tablet 2024 025 [facility], [address], [place], [address], 12/10/2024 09:21:30 Patient TargetsNo targets recorded. Patient InstructionsNo instructions recorded. Reason for Referral None Reported. Results Created Date Observation Date Name Description Value Unit Range Abnormal Flag Note LastModifiedBy Organization Detail LastModifiedTime 09/06/19 25 09/05/2024 HbA1c (hemo globi n A1c), blood HbA1c 10.7 Not Available [facility] [address] [facility] [address], [place], [address], 09/05/2024 10:57:26 09/06/19 25 09/05/2024 gluco se, finge rstic k, blood Blood Glucose: mg/dl 283 Not Available [facility] [address] [facility] [address], [place], [address], 09/05/2024 10:43:55 12/11/19 25 12/11/2024 COMP. METAB OLIC PANEL (14) glucose 132 mg/dL 70-99 above high normal Not Available [facility] ([facility]) [address] [place], [address], 12/11/2024 11:13:28 12/11/19 25 12/11/2024 COMP. METAB OLIC PANEL (14) BUN 17 mg/dL 6-24 normal Not Available [facility] ([facility]) [address] [place], [address], 12/11/2024 11:13:28 12/11/19 25 12/11/2024 COMP. METAB OLIC PANEL (14) creatinine 1.22 mg/dL 0.76-1 .27 normal Not Available [facility] ([facility]) [address] [place], [address], 12/11/2024 11:13:28 12/11/19 25 12/11/2024 COMP. METAB OLIC PANEL (14) eGFR 69 mL/mi n/1.7 3 >59 normal Not Available [facility] ([facility]) [address] [facility], [place], [address], 12/11/2024 11:13:28 12/11/19 25 12/11/2024 COMP. METAB OLIC PANEL (14) BUN/creatini ne ratio 14 9-20 normal Not Available [facility] ([facility]) [address] [facility], [place], [address], 12/11/2024 11:13:28 12/11/19 25 12/11/2024 COMP. METAB OLIC PANEL (14) sodium 140 mmol/ L 134-14 4 normal Not Available [facility] ([facility]) [address] [facility], [place], [address], 12/11/2024 11:13:28 12/11/19 25 12/11/2024 COMP. METAB OLIC PANEL (14) potassium 4.9 mmol/ L 3.5-5. 2 normal Not Available [facility] ([facility]) [address] [place], [address], 12/11/2024 11:13:28 12/11/19 25 12/11/2024 COMP. METAB OLIC PANEL (14) chloride 101 mmol/ L 96-106 normal Not Available [facility] ([facility]) [address] [place], [address], 12/11/2024 11:13:28 12/11/19 25 12/11/2024 COMP. METAB OLIC PANEL (14) carbon dioxide, total 24 mmol/ L 20-29 normal Not Available [facility] ([facility]) [address] [place], [address], 12/11/2024 11:13:28 12/11/19 25 12/11/2024 COMP. METAB OLIC PANEL (14) calcium 9.9 mg/dL 8.7-10 .2 normal Not Available [facility] ([facility]) [address] [place], [address], 12/11/2024 11:13:28 12/11/19 25 12/11/2024 COMP. METAB OLIC PANEL (14) protein, total 6.9 g/dL 6.0-8. 5 normal Not Available [facility] ([facility]) [address] [place], [address], 12/11/2024 11:13:28 12/11/19 25 12/11/2024 COMP. METAB OLIC PANEL (14) albumin 4.5 g/dL 3.8-4. 9 normal Not Available [facility] ([facility]) [address] [place], [address], 12/11/2024 11:13:28 12/11/19 25 12/11/2024 COMP. METAB OLIC PANEL (14) globulin, total 2.4 g/dL 1.5-4. 5 Not Available [facility] ([facility]) [address] [facility] [place], [address], 12/11/2024 11:13:28 12/11/19 25 12/11/2024 COMP. METAB OLIC PANEL (14) bilirubin, total 0.5 mg/dL 0.0-1. 2 normal Not Available [facility] ([facility]) [address] [facility] [place], [address], 12/11/2024 11:13:28 12/11/19 25 12/11/2024 COMP. METAB OLIC PANEL (14) alkaline phosphatase 121 IU/L 44-121 normal Not Available [facility] ([facility]) [address] [place], [address], 12/11/2024 11:13:28 12/11/19 25 12/11/2024 COMP. METAB OLIC PANEL (14) AST (SGOT) 31 IU/L 0-40 normal Not Available [facility] ([facility]) [address] [facility], [place], [address], 12/11/2024 11:13:28 12/11/19 25 12/11/2024 COMP. METAB OLIC PANEL (14) ALT (SGPT) 39 IU/L 0-44 normal Not Available [facility] ([facility]) [address] [facility], [place], [address], 12/11/2024 11:13:28 12/11/19 25 12/11/2024 LIPID PROFI LE cholesterol, total 132 mg/dL 100-19 9 normal Not Available [facility] ([facility]) [address] [place], [address], 12/11/2024 11:13:29 12/11/19 25 12/11/2024 LIPID PROFI LE triglyceride s 139 mg/dL 0-149 normal Not Available [facility] ([facility]) [address] [place], [address], 12/11/2024 11:13:29 12/11/19 25 12/11/2024 LIPID PROFI LE HDL cholesterol 35 mg/dL >39 below low normal Not Available [facility] ([facility]) [address] [place], [address], 12/11/2024 11:13:29 12/11/19 25 12/11/2024 LIPID PROFI LE VLDL cholesterol viktor 25 mg/dL 5-40 Not Available [facility] ([facility]) [address] [place], [address], 12/11/2024 11:13:29 12/11/19 25 12/11/2024 LIPID PROFI LE LDL chol calc ([facility]) 72 mg/dL 0-99 Not Available [facility] ([facility]) [address] [place], [address], 12/11/2024 11:13:29 12/11/19 25 12/11/2024 LIPID PROFI LE LDL calc comment: [address] STENOGRAPHER Not Available [facility] ([facility]) [address] [facility], [place], [address], 12/11/2024 11:13:29 12/11/19 25 12/11/2024 ALBUM IN/CR EATIN INE RATIO ,URIN E creatinine, urine 137.5 mg/dL not estab. normal Not Available [facility] ([facility]) [address] [facility], [place], [address], 12/11/2024 11:13:30 12/11/19 25 12/11/2024 ALBUM IN/CR EATIN INE RATIO ,URIN E albumin, urine 105.4 ug/mL not estab. Not Available [facility] ([facility]) [address] [facility], [place], [address], 12/11/2024 11:13:30 12/11/19 25 12/11/2024 ALBUM IN/CR EATIN INE RATIO ,URIN E alb/creat ratio 77 mg/g_ creat 0-29 above high normal Ana l: 0 - 29 Moder ately incre ased: 30 - 300 Sever eitan incre ased: >300 Not Available [facility] ([facility]) [address] [facility], [place], [address], 12/11/2024 11:13:30 12/11/19 25 12/11/2024 PROST ATE-S PECIF IC AG prostate specific Ag 0.9 NG/mL 0.0-4. 0 normal Milo ECLIA metho dolog y. Accor ding to the Ameri can [employer]rolo g[employer] iatio n, Serum PSA shoul d decre ase and remai n at undet ectab le level s after radic al prost atect tran. The AUA defin es bioch emica l recur rence as an initi al PSA value 0.2 ng/mL or great er follo wed by a subse quent confi rmato ry PSA value 0.2 ng/mL or great er. Value s obtai ellen with diffe rent assay metho ds or kits canno t be used inter goodwin bridget . Resul ts canno t be inter prete d as absol [place] evide nce of the prese nce or absen ce of sami house se. Not Available [facility] ([facility]) [address] [facility], [place], [address], 12/11/2024 11:13:31 12/11/19 25 12/10/2024 urina lysis , dipst ick Leukocytes (reference range) negati ve Not Available [facility] [address] [facility] [address], [place], [address], 12/10/2024 09:23:27 12/11/19 25 12/10/2024 urina lysis , dipst ick Nitrite (reference range:) negati ve Not Available [facility] [address] [facility] [address], [place], [address], 12/10/2024 09:23:27 12/11/19 25 12/10/2024 urina lysis , dipst ick Urobilinogen (reference range) 0.2 Not Available [facility] [address] [facility] [address], [place], [address], 12/10/2024 09:23:27 12/11/19 25 12/10/2024 urina lysis , dipst ick Protein (reference range) 100 Not Available [facility] [address] [facility] [address], [place], [address], 12/10/2024 09:23:27 12/11/19 25 12/10/2024 urina lysis , dipst ick pH (reference range 5-8.5) 5.5 Not Available [facility] [address] [facility] [address], [place], [address], 12/10/2024 09:23:27 12/11/19 25 12/10/2024 urina lysis , dipst ick Blood (reference range:) non-He molyze d: Trace Not Available [facility] [address], [place], [address], 12/10/2024 09:23:27 12/11/19 25 12/10/2024 urina lysis , dipst ick Specific [place] (reference range) 1.020 Not Available [facility] [address], [place], [address], 12/10/2024 09:23:27 12/11/19 25 12/10/2024 urina lysis , dipst ick Ketone (reference range) trace Not Available [facility] [address] [facility] [address], [place], [address], 12/10/2024 09:23:27 12/11/19 25 12/10/2024 urina lysis , dipst ick Bilirubin (reference range) negati ve Not Available [facility] [address], [place], [address], 12/10/2024 09:23:27 12/11/19 25 12/10/2024 urina lysis , dipst ick Glucose (reference range) negati ve Not Available [facility] [address] [facility] [address], [place], [address], 12/10/2024 09:23:27 12/11/19 25 12/10/2024 urina lysis , dipst ick Color (reference range: yellow-brown ) Dark Yellow Not Available [facility] [address] [facility] [address], [place], [address], 12/10/2024 09:23:27 11/02/19 25 11/01/2024 CT, cervi viktor spine , w/o contr ast No observ ation record ed. [email or web address] [place] [address], [place], [address], 11/04/2024 16:34:44 11/02/19 25 11/01/2024 CT, head + brain , w/o contr ast No observ ation record ed. [email or web address] [facility] [address], [place], [address], 11/04/2024 16:34:27 11/06/19 25 11/04/2024 XR, cervi viktor spine , 2 or 3 view No observ ation record ed. In-House Imaging - [facility] [address], [place], [address], 11/05/2024 13:54:03 11/08/19 25 11/01/2024 CT, cervi viktor spine , w/o contr ast No observ ation record ed. [facility] [address], [place], [address], 11/08/2024 08:31:08 Result Notes None recorded. Problems Name Problem SNOMED Code Status Onset Date Resolution Date Notes Provider Name and Address Organization Details Recorded Time Laboratory test result abnormal 361476090 Active Not Available [facility] 4 19:46:18 Recurrent sinusitis 025899665 Active Not Available [facility] 19:46:18 Essential hypertensi on 78308711 Active Not Available [facility] 19:46:19 Basal cell carcinoma of lower extremity 418204686 Active Not Available [facility] 19:46:19 Malignant neoplasm of skin of lower limb 281011484 Active Not Available [facility] 19:46:18 Polyp of nasal cavity and/or nasal sinus 216333397 Active Not Available [facility] 19:46:19 Paresthesi a 95729663 Active Not Available [facility] 4 19:46:19 Allergic rhinitis 43361522 Active Not Available [facility] 4 19:46:19 Thoracic back pain 204547471 Active Not Available [facility] 4 19:46:18 Chronic cough 57778840 Active Not Available [facility] 4 19:46:19 Disorder of skin of lower limb 207497125 Active Not Available [facility] 4 19:46:19 Major depressive disorder 783632812 Active Not Available [facility] 4 19:46:18 Right sided abdominal pain 014438454 Active Not Available [facility] 4 19:46:18 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 86305693 Active Not Available [facility] 4 19:46:18 Hyperlipid emia 36361569 Active Not Available [facility] 4 19:46:19 Obstructiv e sleep apnea syndrome 59700610 Active Not Available [facility] 4 19:46:19 Peripheral vascular disease 609096086 Active Not Available [facility] 4 19:46:18 Nodule of lung 544871322 Active Not Available [facility] 4 19:46:19 Perirectal abscess 57122684 Active Not Available [facility] 4 19:46:19 Pain in limb 41559710 Active 2004 Not Available [facility] 4 19:46:19 Depressive disorder 48382819 Active 2010 Not Available [facility] 4 19:46:18 Panic disorder without agoraphobi a 79133634 Active 2010 Not Available [facility] 4 19:46:19 Transient insomnia 763915307 Active 2010 Not Available [facility] 4 19:46:18 Family history of malignant neoplasm of kidney 719040039 Active 2010 Not Available [facility] 4 19:46:19 Generalize d anxiety disorder 26852293 Active 2010 Not Available [facility] 4 19:46:18 Abnormal voice 33789277 Active 2010 Not Available [facility] 4 19:46:18 Low back pain 700353548 Active 2011 Not Available [facility] 4 19:46:18 Sciatica 63629165 Active 2011 Not Available [facility] 4 19:46:18 Impotence of organic origin Active 2011 Not Available [facility] 4 19:46:18 Anal fistula 243631184 Active 2011 Not Available [facility] 4 19:46:19 Diarrhea 93149553 Active 2011 Not Available [facility] 4 19:46:19 Pulmonary emphysema 09473285 Active 2022 Not Available [facility] 4 19:46:19 Cough 82859320 Active 2022 Not Available [facility] 4 19:46:19 Dyspnea on exertion 24684201 Active 2022 Not Available [facility] 4 19:46:19 Tobacco dependence caused by cigarettes 5014456330974 9107 Active 2022 Not Available [facility] 4 19:46:18 Neck pain 97201015 Active 2024 [place] Whaley [facility] [place] 5 16:20:55 Notes:Some problems listed i n Documents: #[id number], #[id number], #[id number] could not be added to this patient's chart. Please review these documents and add these problems to the patient's chart manually as needed. Problem Notes None recorded. Procedures Surgical History Date Name Laterality Status Provider Name and Address Organization Details Recorded Time 2024 repair of inguinal hernia completed Nedra COHEN - [facility] [place] [facility] [place] 5 18:27:56 2023 partial resection of colon completed Laila Carranza - [facility] - [place] [facility] [place] 5 12:53:25 2022 esophagogastroduodenoscopy completed Laila Carranza - [facility] - [place] [facility] [place] 5 12:51:07 2019 operation on accessory sinus completed Belle [place] - [facility] - [place] [facility] [place] 5 12:49:58 2019 Colonoscopy completed Belle [place] - [facility] - [place] [facility] [place] 5 12:41:24 2019 removal of catheter completed Belle [place] - [facility] - [place] [facility] [place] 4 15:06:20 2019 thrombectomy of artery completed Belle [place] - [facility] - [place] [facility] [place] 4 15:07:15 2019 Stent Placement completed Belle [place] - [facility] - [place] [facility] [place] 5 12:56:07 2018 excision of basal cell carcinoma completed Belle [place] - [facility] - [place] [facility] [place] 5 12:40:42 2016 repair of iliac artery completed Belle [place] - [facility] - [place] [facility] [place] 5 12:41:06 1993 operation on nose completed Belle [place] - [facility] - [place] [facility] [place] 5 12:40:51 anal fissurectomy completed Sofia Capellan- [facility] [place] - [facility] - [place] [facility] [place] 3 10:52:43 Cataract Surgery completed Sofia Capellan- [facility] [place] - [facility] - [place] [facility] [place] 3 10:52:55 reconstruction of an terior cruciate ligament of knee joint completed Sofia Capellan- [facility] [place] - [facility] - [place] [facility] [place] 3 10:54:25 nasal septoplasty completed Belle [place] - [facility] - [place] [facility] [place] 4 15:04:22 Oral surgery procedure completed Me montalvo [place] - [facility] - [place] [facility] [place] 4 15:05:49 Imaging Results None recorded. Procedure Notes None recorded. Medical Equipment None Reported. Allergies Allergen ID Allergen Name Allergen Category Reaction Reaction Severity Criticality Documentation Date Start Date Code Code System Note Provider Name and Address Organization Details Recorded Time 593978 No known allergy (situatio n) Not available Not available Not available Not available 05/12/2023 19800 6003 SNOMED Belle blevins, [place] - PANKAJ [facility] [place] 12:38:40 782680 ethinyl estradiol / levonorge strel medicatio n Not available Not available Not available 09/06/2024 50585 8 RxNorm Belle blevins, [place] Bernal LPFERMÍN [facility] [place] 12:38:40 585991 Product containin g penicilli n (product) medicatio n Not available Not available Not available 09/06/2024 39800 8001 SNOMED Belle blevins, [place] - PANKAJ [facility] [place] 12:54:33 Medications Name Sig Start Date Stop Date Status Note LastModified by Organization Details LastModified Time Prescriptio n - Renewal active Not Available Not Available Not Available losartan 50 mg tablet TAKE 1 TABLET BY MOUTH ONCE DAILY active Not Available Not Available No t Available cyclobenzap rine 10 mg tablet TAKE 1 TABLET BY MOUTH THREE TIMES DAILY NEEDED FOR 7 DAYS active Not Available Not Available No t Available amoxicillin 500 mg capsule TAKE 1 CAPSULE BY MOUTH THREE TIMES DAILY FOR 7 DAYS 06/14 completed Not Available Not Available Not Available atorvastati n 40 mg tablet Take 1 tablet by mouth once daily 2024 active Not Available Not Available Not Avai lable metformin 500 mg tablet Take 1 tablet 3 times a day by oral route. 12/10 completed Not Available Not Available Not Available cilostazol 100 mg tablet TAKE 1 TABLET BY MOUTH TWICE DAILY 30 MINUTES BEFORE OR 2 HOURS AFTER BREAKFAST AND DINNER active Not Available Not Available No t Available nystatin 100,000 unit/mL oral suspension TAKE 2 TEASPOONS FUL BY MOUTH 4 TIMES DAILY DIRECTED SWISH, GARGLE, AND SWALLOW 06/28 completed Not Available Not Available Not Available benzonatate 200 mg capsule TAKE 1 CAPSULE BY MOUTH THREE TIMES DAILY DIRECTED FOR 10 DAYS 06/28 completed Not Available Not Available Not Available hydrocodone 5 mg-acetamin ophen 325 mg tablet TAKE 1 TABLET BY MOUTH EVERY 4 TO 6 HOURS NEEDED FOR PAIN 09/18 completed Not Available Not Available Not Available meloxicam 15 mg tablet TAKE 1 TABLET BY MOUTH ONCE DAILY active Not Available Not Available No t Available Nicoderm CQ 21 mg/24 hr daily transdermal patch APPLY 1 PATCH TOPICALLY ONCE DAILY 10/12 completed Not Available Not Available Not Available prednisone 20 mg tablet TAKE 3 TABLETS BY MOUTH ONCE DAILY FOR 3 DAYS THEN 2 ONCE DAILY FOR 3 DAYS THEN 1 ONCE DAILY FOR 3 DAYS THEN STOP 09/18 completed Not Available Not Available Not Available fluorouraci l 5 % topical cream APPLY CREAM TOPICALLY TWICE DAILY TO AFFECTED AREA ON THE CHEEK FOR 6 WEEKS 08/09 completed Not Available Not Available Not Available metformin 850 mg tablet Take 1 tablet twice a day by oral route. 2024 active Not Available Not Available Not Avai lable amlodipine 2.5 mg tablet Take 1 tablet by mouth once daily 08/09 completed Not Available Not Available Not Available metronidazo le 500 mg tablet TAKE 1 TABLET BY MOUTH THREE TIMES DAILY AT 2, 4 AND 10 PM THE DAY BEFORE SURGERY 04/22 completed Not Available Not Available Not Available clopidogrel 75 mg tablet TAKE 1 TABLET BY MOUTH ONCE DAILY active Not Available Not Available No t Available triamcinolo ne acetonide 0.1 % topical cream APPLY A THIN LAYER OF CREAM EXTERNALL Y TO AFFECTED AREA TWICE DAILY 10/12 completed Not Available Not Available Not Available pantoprazol e 20 mg tablet,jorge yed release TAKE 1 TABLET BY MOUTH TWICE DAILY 30 MINUTES BEFORE BREAKFAST 2024 active Not Available Not Available Not Avai lable oxycodone-a cetaminophe n 5 mg-325 mg tablet TAKE 1 TABLET BY MOUTH EVERY 6 HOURS NEEDED FOR PAIN . DO NOT EXCEED 4 TABLETS PER DAY 12/10 completed Not Available Not Available Not Available imiquimod 5 % topical cream packet APPLY SMALL AMOUNT OF CREAM EXTERNALL Y TO INDIVIDUA L WART IN THE MORNING active Not Available Not Available No t Available benzonatate 100 mg capsule TAKE 1 CAPSULE BY MOUTH THREE TIMES DAILY FOR 7 DAYS 03/16 completed Not Available Not Available Not Available oseltamivir 75 mg capsule Take 1 capsule twice a day by oral route as directed for 5 days. 06/28 completed Not Available Not Available Not Available nystatin 100,000 unit/gram topical cream APPLY CREAM TOPICALLY TO AFFECTED AREA TWICE DAILY active Not Available Not Available No t Available clotrimazol e-betametha sone 1 %-0.05 % topical cream APPLY CREAM TOPICALLY TWICE DAILY FOR 7 DAYS 08/09 completed Not Available Not Available Not Available lisinopril 10 mg tablet TAKE 1 TABLET BY MOUTH ONCE DAILY 08/10 completed Not Available Not Available Not Available losartan 25 mg tablet TAKE 1 TABLET BY MOUTH ONCE DAILY 07/12 completed Not Available Not Available Not Available gabapentin 300 mg capsule TAKE 1 CAPSULE BY MOUTH THREE TIMES DAILY active Not Available Not Available No t Available omeprazole 20 mg capsule,del ayed release TAKE 1 CAPSULE BY MOUTH TWICE DAILY DIRECTED 30 MINUTES PRIOR TO BREAKFAST AND DINNER 06/28 completed Not Available Not Available Not Available diclofenac sodium 75 mg tablet,jorge yed release TAKE 1 TABLET BY MOUTH TWICE DAILY 03/16 completed Not Available Not Available Not Available montelukast 10 mg tablet Take 1 {tablet} by oral route. 06/28 completed Not Available Not Available Not Available levofloxaci n 500 mg tablet TAKE 1 TABLET BY MOUTH EVERY 24 HOURS FOR 7 DAYS 08/16 completed Not Available Not Available Not Available methylpredn isolone 4 mg tablets in a dose pack Take 1 dose pk by oral route. 06/14 completed Not Available Not Available Not Available neomycin 500 mg tablet TAKE 2 TABLETS BY MOUTH AT 2:00 PM, 4:00 PM, 11:00 PM THE NIGHT BEFORE SURGERY DIRECTED 04/22 completed Not Available Not Available Not Available albuterol sulfate HFA 90 mcg/actuati on aerosol inhaler INHALE 2 PUFFS BY MOUTH EVERY 4 HOURS active Not Available Not Available No t Available dexamethaso ne sodium phosphate 10 mg/mL injection solution Take 1 mL by injection route. 06/28 completed Not Available Not Available Not Available losartan 100 mg tablet Take 1 tablet every day by oral route. 09/18 completed Not Available Not Available Not Available doxycycline hyclate 100 mg tablet TAKE 1 TABLET BY MOUTH TWICE DAILY FOR 10 DAYS 09/18 completed Not Available Not Available Not Available amoxicillin 875 mg-potassiu m clavulanate 125 mg tablet TAKE 1 TABLET BY MOUTH TWICE DAILY 04/22 completed Not Available Not Available Not Available amoxicillin 500 mg-potassiu m clavulanate 125 mg tablet TAKE 1 TABLET BY MOUTH THREE TIMES DAILY 04/22 completed Not Available Not Available Not Available hydroxyzine pamoate 25 mg capsule TAKE 1 CAPSULE BY MOUTH THREE TIMES DAILY FOR 7 DAYS 10/12 completed Not Available Not Available Not Available duloxetine 30 mg capsule,del ayed release TAKE 1 CAPSULE BY MOUTH ONCE DAILY active Not Available Not Available No t Available nystatin 01/11 completed Not Available Not Available Not Available Adult Low Dose Aspirin active Not Available Not Available Not Available varenicline tartrate 1 mg tablet TAKE 1 TABLET BY MOUTH TWICE DAILY BEFORE MEALS 01/11 completed Not Available Not Available Not Available Stahist AD 25 mg-60 mg tablet TAKE 1 TABLET BY MOUTH EVERY 8 HOURS NEEDED 03/16 completed Not Available Not Available Not Available dapaglifloz in propanediol 10 mg tablet Take 1 tablet by mouth once daily for 90 days 2024 active Not Available Not Available Not Avai lable Spiriva Respimat 2.5 mcg/actuati on solution for inhalation INHALE 2 SPRAY(S) BY MOUTH ONCE DAILY active Not Available Not Available No t Available Clenpiq 10 mg-3.5 gram-12 gram/160 mL oral solution drink 1 5.4 oz bottle at 5 pm followed by 5 cups of clear liquid. Repeat 6 hours before procedure . 11/10 completed Not Available Not Available Not Available baclofen 5 mg tablet TAKE 1 TABLET BY MOUTH THREE TIMES DAILY active Not Available Not Available No t Available Plenvu 140 gram-9 gram-5.2 gram powder packs TAKE DIRECTED PER PHYSICIAN S INSTRUCTI ONS 04/22 completed Not Available Not Available Not Available Flowflex COVID-19 Antigen Home Test kit 10/12 completed Not Available Not Available Not Available Vitals Date Recorded Body height Body mass index (BMI) Body weight Body temperature Oxygen saturation Oxygen saturation in Arterial blood by Pulse oximetry Heart rate Systolic And Diastolic Provider Name and Address Organization Details Last Updated DateTime 180.34 cm 26.9 kg/m2 52013.3 3 g 97.8 [degF] 93 % 93 % 107 /min 124/76 mm[Hg] [facility] [place] [facility] [place] [facility] 09:01:27 Date Recorded Body height Body mass index (BMI) Body weight Body temperature Oxygen saturation Oxygen saturation in Arterial blood by Pulse oximetry Heart rate Systolic And Diastolic Provider Name and Address Organization Details Last Updated DateTime 5 180.34 cm 26.4 kg/m2 34919.9 6 g 98.6 [degF] 95 % 95 % 105 /min 108/64 mm[Hg] Taya COHEN [facility] & [place] 5 09:47:58 Date Recorded Body height Body mass index (BMI) Body weight Body temperature Oxygen saturation Oxygen saturation in Arterial blood by Pulse oximetry Heart rate Systolic And Diastolic Provider Name and Address Organization Details Last Updated DateTime 5 180.34 cm 26.5 kg/m2 65215.5 5 g 98 [degF] 95 % 95 % 93 /min 140/86 mm[Hg] Audrey Sales JESÚS [facility] & [place] 5 16:06:54 Date Recorded Body height Body mass index (BMI) Body weight Body temperature Oxygen saturation Oxygen saturation in Arterial blood by Pulse oximetry Heart rate Systolic And Diastolic Provider Name and Address Organization Details Last Updated DateTime 5 180.34 cm 26.1 kg/m2 88022.7 7 g 98.7 [degF] 92 % 92 % 114 /min 100/60 mm[Hg] Taya COHEN [facility] & [place] 5 09:18:21 Social History Question Answer Notes LastModified by Organizat ion Details LastModified Time Tobacco Smoking Status Current Every Day Smoker [facility]aya blevins [facility] [place] 06/28/2022 10:15:55 Do You Have An Advance Directive? No [email or web address] Information not available 06/28/2022 Are You Blind Or Do You Have Difficulty Seeing? No Information not available 09/06/2024 What Is Your Level Of Caffeine Consumption? Moderate [email or web address] Information not available 08/10/2022 What Was The Date Of Your Most Recent Tobacco Screening? 09/03/2024 Information not available 09/06/2024 What Is Your Current Pack Years? 30ormorepacky ears [email or web address] Information not available 06/28/2022 At What Age Did You Start Smoking Tobacco? 19 Information not available 08/10/2022 Are You Passively Exposed To Smoke? No Information not available 09/06/2024 How Much Tobacco Do You Smoke? 2 PPD Information not available 09/06/2024 How Many Years Have You Smoked Tobacco? 38 Information not available 08/10/2022 Sex: Unknown Functional Status Question Answer Note LastModified by Organizat ion Details LastModified Time Do you use any illicit or recreational drugs? No [email or web address] Information not available 08/10/2022 What is your level of alcohol consumption? Occasional Information not available 09/06/2024 Do you or have you ever used smokeless tobacco? 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 None Information not available 09/06/2024 Mental Status Question Answer Note LastModified by Organization D etails LastModified Time Do you feel stressed (tense, restless, nervous, or anxious, or unable to sleep at night)? [id number] Information not available 09/06/2024 Family History Relationship Description Onset Age of this Age Resolved Age Notes LastModified by Organization Details LastModified Time Father Malignant neoplastic disease [email or web address] Not available 2024 09:11:45 Father Diabetes mellitus [email or web address] Not available 2024 09:11:45 Father Family history of malignant neoplasm of kidney bhlathein Not available 2024 09:11:45 Father Disorder of endocrine system pt. added direct ly (09/03) [email or web address]-13 Not available 09/03/2024 17:15:43 Father Hypertensive disorder pt. added direct ly (09/03) [email or web address]-13 Not available 09/03/2024 17:16:18 Father Renal cell carcinoma bhlathein Not available 2024 09:11:45 Mother Malignant neoplastic disease [email or web address] Not available 2024 09:11:45 Mother Family history of malignant neoplasm of kidney bhlathein Not available 2024 09:11:45 Mother Renal cell carcinoma bhlathein Not available 2024 09:11:45 Brother Diabetes mellitus bhlathein Not available 2024 09:11:45 Brother Laceration of liver bhlathein Not available 2024 09:11:45 Brother Alcoholism [email or web address] Not avail able 12/10/2024 09:11:45 Brother Type B viral hepatitis bhlathein Not available 2024 09:11:45 Brother Hypertensive disorder [email or web address] Not available 2022 15:53:40 Brother Depressive disorder bhlathein Not available 2024 09:11:45 Brother Disorder of endocrine system pt. added direct ly (09/03) [email or web address]-13 Not available 09/03/2024 17:15:43 Maternal Grandmother Malignant neoplastic disease bhlathein Not available 2024 09:11:45 Paternal Uncle Hypertensive disorder pt. added direct ly (09/03) [email or web address]-13 Not available 09/03/2024 17:16:18 Paternal Grandfather Hypertensive disorder pt. added direct ly (09/03) API-13 Not available 09/03/2024 17:16:18 Medical History Condition Response Other Y COPD Y Depression Y Obstructive Sleep Apnea Y Anxiety Disorder Y Vision or Eye Problems Y Arthritis Y Polyps Y Cancer Y High Cholesterol Y Allergies/Hayfever Y Ear or Hearing Problems Y Kidney or Bladder Problems Y Skin Problems Y Diabetes Y Diverticulitis Y Reflux/GERD Y Hypertension Y Immunizations Vaccine Type Date Status Note Provider Nam e and Address Organization Details Recorded Time zoster recombinant 2 completed Not Available [facility] 19:46:19 zoster recombinant 1 completed Not Available [facility]23 19:46:19 COVID-19, mRNA, LNP-S, PF, 100 mcg/0.5mL dose or 50 mcg/0.25mL dose 2 completed JESÚS Bautista - [facility] - [place] & [place] 09/17/2024 16:46:09 COVID-19, mRNA, LNP-S, PF, 30 mcg/0.3 mL dose 1 completed Taylor Amy null, [place] - [facility] - [place] & [place] 09/17/2024 16:46:09 COVID-19, mRNA, LNP-S, PF, 30 mcg/0.3 mL dose 1 completed Taylor Amy null, [place] - [facility] [place] & [place] 09/17/2024 16:46:09 COVID-19, mRNA, LNP-S, PF, 30 mcg/0.3 mL dose 1 completed Taylor Amy [place] [facility] - [place] & [place] 09/17/2024 16:46:09 Pneumococcal conjugate PCV20, polysaccharide [id number] conjugate, adjuvant, PF 2 completed Taylor Amy null, [place] - [facility] & [place] 09/17/2024 16:46:09 Hep A, adult 8 completed Taylor Amy null[place] [facility] & [place] 09/17/2024 16:46:09 Influenza, split virus, quadrivalent, PF 7 completed Taylor Amy [place] [facility] & [place] 09/17/2024 16:46:09 Influenza, split virus, quadrivalent, PF 0 completed Taylor Amy [place] [facility] & [place] 09/17/2024 16:46:09 Influenza, split virus, quadrivalent, PF 9 completed Taylor Amy [place] [facility] - [place] & [place] 09/17/2024 16:46:09 Influenza, split virus, quadrivalent, PF 1 completed [place] [facility] - [place] & [place] 09/17/2024 16:46:09 Influenza, split virus, quadrivalent, PF 6 completed [place] [facility] - [place] & [place] 09/17/2024 16:46:09 Influenza, split virus, quadrivalent, PF 8 completed [place] Amy [place] [facility] - [place] & [place] 09/17/2024 16:46:09 influenza, unspecified formulation 2 completed Not Available [facility] 07/31/2023 19:46:20 Td(adult) unspecified formulation 8 completed Not Available [facility]23 19:46:20 Tdap 6 completed Not Available [facility] 07/31/2023 19:46:20 Tdap 1 completed Not Available [facility] 07/31/2023 19:46:20 Influenza, split virus, quadrivalent, PF 3 completed Taylor Amy null[place] [facility] & [place] 09/17/2024 16:46:09 COVID-19, mRNA, LNP-S, PF, 50 mcg/0.5 mL 3 completed Taylor [place] [facility] - [place] & [place] 09/17/2024 16:46:09 Influenza, split virus, quadrivalent, PF 3 completed Taylor [place] [facility] [place] & [place] 09/17/2024 16:46:09 Influenza, split virus, trivalent, preservative 2 completed Taylor [place] [facility] [place] & [place] 09/17/2024 16:46:09 Influenza, split virus, trivalent, PF 7 completed Not Available [facility] 07/31/2023 19:46:20 Influenza, split virus, trivalent, PF 6 completed Not Available [facility] 07/31/2023 19:46:20 Tdap 4 completed Taylor Amy [place] [facility] [place] & [place] 09/17/2024 16:46:09 Influenza, split virus, trivalent, preservative 4 completed Taylor [place] [facility] [place] & [place] 09/17/2024 16:46:09 influenza, unspecified formulation 8 completed Not Available [facility] 07/31/2023 19:46:20 Influenza, split virus, quadrivalent, PF 9 completed Not Available [facility] 07/31/2023 19:46:20 COVID-19, mRNA, LNP-S, PF, 50 mcg/0.5 mL 4 completed Belle Rothamer null[place] [facility] - [place] & [place] 11/20/2024 18:20:42 Tdap 4 completed Belle Roth[place] [facility] - [place] & [place] 11/20/2024 18:20:42 Influenza, split virus, trivalent, PF 4 completed Belle Roth[place] [facility] - [place] & [place] 11/20/2024 18:20:42 Hep A, adult 4 completed Belle Roth[place] [facility] - [place] & [place] 11/20/2024 18:20:42 Past Encounters Encounter ID Performer Location Encounter Start Date Encounter Closed Date Diagnosis/Indication Diagnosis SNOMED-CT Code Diagnosis ICD10 Code Diagnosis Note [id number] Christie James MD [facility] [address] [place] [address] 03/16/2022 15:48:15 03/16/2022 16:22:05 Obstructive sleep apnea syndrome 20959896 G47.33 will start patient on auto PAP 6-20 cm H2O. he is to follow-up with me in 2 months after received his device. [id number] Keila Navarro in, [facility] [address] [place] [address] 05/06/2022 14:01:45 05/06/2022 15:36:19 Fever 365249525 R50.9 Influenza caused by Influenza A virus 615383732 J09.X2 [id number] Keila Navarro in, [facility] [address] [place] [address] 05/27/2022 09:52:56 05/27/2022 11:20:12 Pain in throat 399512103 R07.0 Acute laryngitis 1698400 J04.0 Cough 17112286 R05.9 [id number] Christie James MD [address] [place] [address] 06/28/2022 09:59:00 06/28/2022 10:33:51 Chronic obstructive pulmonary disease 56901019 J44.9 Encouraged to stop smoking. Chronic hoarseness 89035 52983 105 R49.0 Keep close follow-up with ENT. Obstructiv e sleep apnea syndrome 80718989 G47.33 We will be more diligent trying his CPAP once his ENT and hoarseness issues have resolved. Peripheral vascular disease 957446742 I73.9 Nocturia 369127039 R35.1 Essential hypertension 23667024 I10 Hyperlipidemia 64696392 E78.5 [id number] Yanelis Pizano NP [facility] [address] [place] [address] 07/12/2022 09:43:21 07/12/2022 10:20:06 Diarrhea 89816841 R19.7 - Dx colonoscop y scheduled- reports he was told he had ulcers in his colon . Has never been diagnosed with IBD per patient report- last colonoscop y was in 2020 Persistent cough 9557121 02 R05.3 - likely has COPD- referral placed to Dr. Murphy- offered patient to start COPD management . Patient declined would like to disucss with Dr Roberts first. Heartburn 21172161 R12 -continue pantoprazo le b.i.d. as prescribed by Dr. Roberts- EGD scheduled Christie James MD [address] [place] [address] 07/12/2022 08:19:23 07/12/2022 08:38:38 [id number] Mary Lou Murphy MD [facility] [address] [place] [address] 08/10/2022 13:35:05 08/10/2022 14:21:40 Pulmonary emphysema 26669262 J43.9 Spirometry done in the office showed decrease in FEV1 down 76% predicted on a poor effort test and that was reviewed and discussed with the patient. Will check alpha-1 trypsin genotype by buccal mucosal swab in the office today. Chest x-ray done recently was reviewed and report was discussed with the patient, there is no evidence of acute finding. Will arrange for the patient to start on a controller using Spiriva Respimat. Patient use Kelli on a p.r.n. basis. Patient recommende d to receive his flu vaccine as soon as possible. Cough 67402473 R05.9 Most likely cause of the patient cough is smoking in that was discussed with him at length and will provide him with Kelli to use on a p.r.n. basis Dyspnea on exertion 6084 5006 R06.09 Patient recommende d to exercise as tolerated and will start him on Kelli to use on a p.r.n. basis. Tobacco de pendence caused by cigarettes 2042207257 5828122 F17.210 Patient counseled extensivel y to quit smoking and will continue follow this up. Will arrange for the patient to have nicotine patches to help him in this process. Screening for malignant neoplasm of respiratory tract 475761031 Z12.2 The patient has participat ed in a shared decision making session during which potential risk and benefits of LDCT lung cancer screening were discussed. The patient was informed of the importance of adherence to annual screening, impact of comorbidit ies, the ability/wi llingness to undergo diagnosis and treatment. The patient was informed of the importance of smoking cessation and/or maintainin g smoking abstinence , including the offer of Medicare-c over tobacco cessation counseling services, if applicable . The patient is asymptomat ic (no symptoms such as fever, chest pain, new shortness of breath, new or changing cough, coughing up blood, or unexplaine d significan t weight loss). [id number] Mary Lou Murphy MD [facility] [address] [facility] [place] [address] 11/10/2022 10:17:08 11/10/2022 10:56:23 Pulmonary emphysema 59147681 J43.9 Patient was informed about his alpha-1 antitrypsi n testing being normal/mm. Patient instructed to continue with the use of Spiriva daily. Patient to use his Kelil on a p.r.n. basis. Patient instructed to call if there is any new symptoms. Cough 19860359 R05.9 Patient report improvemen t in his cough since last visit. Also patient was recently diagnosed with Lopez's esophagus and being treated by [facility]. Dyspnea on exertion 6084 5006 R06.09 Patient recommende d to exercise as tolerated and will start him on Kelli to use on a p.r.n. basis. Tobacco de pendence caused by cigarettes 8543031425 2373610 F17.210 Patient counseled extensivel y to quit smoking and will continue follow this up.Will arrange for the patient to have nicotine patches to help him in this process. Screening for malignant neoplasm of respiratory tract 460237475 Z12.2 The patient has participat ed in a shared decision making session during which potential risk and benefits of LDCT lung cancer screening were discussed. The patient was informed of the importance of adherence to annual screening, impact of comorbidit ies, the ability/wi llingness to undergo diagnosis and treatment. The patient was informed of the importance of smoking cessation and/or maintainin g smoking abstinence , including the offer of Medicare-c over tobacco cessation counseling services, if applicable . The patient is asymptomat ic (no symptoms such as fever, chest pain, new shortness of breath, new or changing cough, coughing up blood, or unexplaine d significan t weight loss). [id number] Christie James MD [address] [place] [address] 01/11/2023 08:29:10 01/11/2023 09:00:00 Sprain of shoulder rotator cuff 2135835574 04 S43.421A Type 2 breanne betes mellitus without complication 087838342 E11.9 Patient to come in for fasting labs including lipids. He is aware that steroids can make his glucose readings become quite elevated something starts having polyuria polydipsia symptoms if feeling off he needs to check his glucose levels and contact me. [id number] Christie James MD [address] [place] [address] 04/13/2023 14:19:01 04/13/2023 14:58:56 Type 2 diabetes mellitus without complication 681488750 E11.9 Pain of le ft shoulder joint 5836865776 2855400 M25.512 [id number] Stacia Olivares, [facility] [address] [facility] [place] [address] 05/13/2023 10:00:02 05/13/2023 10:11:14 Candidiasis of skin 11880666 B37.2 [id number] Christie James MD [address] [place] [address] 06/14/2023 11:00:56 06/14/2023 11:40:34 Skin lesion 67638583 L98.9 Obstructiv e sleep apnea syndrome 82187525 G47.33 Smart card download from [facility] [id number] Christie James MD [address] [place] [address] 06/23/2023 13:02:31 06/23/2023 13:33:44 Spasm of back muscles 239086226 M62.830 Hold his atorvastat in for few days see if this is causing his problem muscle. Consider change to Crestor if needed. Hyperlipidemia 98650747 E78.5 Leukocytosis 936417420 D 72.829 Chronic ob structive pulmonary disease 16018851 J44.9 Encouraged to stop smoking. [id number] Christie James MD [address] [place] [address] 07/11/2023 08:45:37 07/11/2023 09:27:50 Muscle pain 00418044 M79.10 Essential hypertension 62273311 I10 Irritant c ontact dermatitis 949764547 L24.9 I still think we are dealing with the nickel planning from his belt buckle or something in his waistline. He has triamcinol one cream which she may continue using. Interval improvemen t in his rash noted from last visit [id number] Christie James MD [address] [place] [address] 07/28/2023 13:02:41 07/28/2023 13:37:56 Rupture of gastrocnemius muscle 326845684 S86.191A Continue aggressive icing and rest. Steroids as he has got a history of stage II renal disease and muscle relaxers. We will make a formal orthopedic evaluation referral but hopefully he will get better before evaluated. Does not appear to be surgical as I feel the full belly of the gastrocnem ius muscle. [id number] Christie James MD [address] [place] [address] 09/19/2023 08:43:11 09/19/2023 09:24:54 Hyperlipidemia 87611128 E78.5 Essential hypertension 85400367 I10 Peripheral vascular disease 634460364 I73.9 Nocturia 110266445 R35.1 Chronic ob structive pulmonary disease 48512170 J44.9 Encouraged to stop smoking.ld lct 12/27 [id number] Christie James MD [address] [place] [address] 10/13/2023 16:03:41 10/13/2023 16:23:12 Diverticulitis 832501760 K57.92 Resolving. Start MiraLax daily. Screening colonoscop y. [id number] Christie James MD [facility] [place] [address] [place] [address] 04/23/2024 11:02:32 04/23/2024 11:45:45 Depressive disorder 47338936 F32.A Hyperlipidemia 69232647 E78.5 Essential hypertension 70964202 I10 Peripheral vascular disease 179098106 I73.9 Pulmonary emphysema 8743 3001 J43.9 Gastroesop hageal reflux disease without esophagitis 834428807 K21.9 [id number] [facility] [address] [place] [address] 05/08/2024 13:17:20 05/08/2024 13:45:39 Abdominal pain 96172241 R10.9 [id number] Christie James MD [facility] [place] [address] [place] [address] 08/16/2024 16:10:06 08/16/2024 16:26:54 Incisional hernia 119852287 K43.2 I have advised him to keep his appointmen t with his colorectal surgery next week. He is aware that should he be worsening pain or fevers or inability to reduce this area he needs to go to the ER for evaluation for urgent surgical evaluation [id number] Christie James MD [address] [place] [address] 09/05/2024 10:25:22 09/05/2024 11:06:43 Type 2 diabetes mellitus 51427803 E11.9 Has cleared himself needing medication to control his diabetes now. We will start metformin 500 mg b.i.d. and gradually workup. He may need to push his surgery back until we can get a little tighter glycemic control. He is aware of this. We will follow up next week [id number] Christie James MD [address] [place] [address] 09/16/2024 08:50:24 09/16/2024 09:18:23 Hypoglycemia due to type 2 diabetes mellitus 7366168375 54766 E11.784 [id number] Christie James MD [address] [place] [address] 10/07/2024 09:40:59 10/07/2024 09:58:30 Type 2 diabetes mellitus 37909901 E11.9 Switch to BID dosing to help with compliance . [id number] Christie James MD [address] [place] [address] 11/04/2024 15:55:08 11/04/2024 16:17:59 Neck pain 33097629 M54.2 Hypoglycem ia due to type 2 diabetes mellitus 2100089190 90428 E11.434 [id number] Charlie Olivares MD [address] [place] [address] 11/04/2024 16:19:23 11/04/2024 16:35:44 Neck pain 73289570 M54.2 [id number] [facility] [place] [address] [place] [address] 12/10/2024 09:09:45 12/10/2024 10:01:03 Type 2 diabetes mellitus 18886562 E11.9 Right flank pain 6437937 09 R10.9 Hyperlipidemia 65040107 E78.5 Nocturia 888907833 R35.1 Health Concerns Section Related Observation LastModified by Organization Detai ls LastModified Time None Recorded Concern Status LastModified by Organization Details LastModified Time None Recorded Advance Directives Directive N: Payers Insurance Date Sequence Insurance Name Policy Number Policy Kohli Covered Member ID Kohli Member ID Guarantor Name 12/17/2024 1 [id number] ([id number] Brian Turcios [id number] Brian Luu Tam 08/08/2022 [facility] Brian Luu Tam Brian Turcios Notes Date Note Type Note Provider Name and Address Organization Details Recorded Time 09/16/2024 text/html he is here for follow-up. Recently started on metformin for diabetes. His numbers are slowly improving. Fingerstick sure here in the office as below 200 today. Continues to hold off on surgery until his glucose is under a bit better control. Christie James MD [address], [place], [address], [facility] [place] 09/16/2024 09:35:01 10/07/2024 text/html He is here for follow-up. newly diagnosed diabetic. He is doing better with his numbers. We are going to go on metformin 500 3 times a day and he has trouble remembering to take the last dose on occasion. He is brought his glucose levels and they are now consistently in the 150-160 range. Christie James MD [address], [place], [id number], [facility] [place] 10/07/2024 12:38:01 11/04/2024 text/html he is here for ER follow-up. He tripped at home and suffered a flexion injury his cervical spine. He went to the emergency room where initially they thought he had a cervical fracture. CT was read as negative by radiology however. He has doing a lot better as far as pain stiffness and mobility. He is new onset diabetes he reports his readings are responding to treatment. His most recent A1c was 7 9 compared to 10 just a few weeks ago. He is still has plans to have a large incisional hernia repaired in the upcoming days and weeks. Christie James MD [address], [place], [address], [facility] & [place] 11/04/2024 16:32:17 12/10/2024 text/html He is here for follow-up. He is history diabetes. Also history of hyperlipidemia. Regarding his diabetes he continues to be doing relatively well with metformin. Had to back off the dose because of some GI she was however. Due for an A1c today. He is history of hyperlipidemia for which he takes atorvastatin. He is due for liver function testing and lipids. He reports some nonspecific right back and flank pain. His urinalysis is unremarkable. Recent negative CT. Christie James MD [address], [place], [phone], [facility] & [place] 12/10/2024 11:56:12
--- OUTSIDE RECORDS SUMMARY | 2025-01-17 08:54 | XMS_ITS | Continuity of Care Document ---
Author Organization [facility] [place] Address [address] [place] [address] Care Team Providers Care Hand Trucker Name Role Phone CHRISTIE JAMES Primary Care Provider BRANDON GONZALEZ Resident Services Supervisor Assessment No assessment recorded. Plan of Treatment Reminders Order Date Submit Date Provider Last Modified By Organization Details Last Modified Time Details Appointments 3 MONTH FU 15 2024 08:15A Nicolás James MD Not available Not available Not available Lab HbA1c (hemoglob in A1c), blood 2024 025 [email or web address] [facility], [address], [place], [address], 12/17/2024 15:19:07 albumin/c reatinine , mass ratio, urine 2024 025 [place] [facility], [address], [address], [place], [address], 12/11/2024 11:13:30 PSA, total, serum or plasma 2024 025 [place] [facility], [address], [address], [place], [address], 12/11/2024 11:13:31 urinalysi s, dipstick 2024 025 [facility] [place], [address], [place], [address], 12/10/2024 10:00:24 CMP, serum or plasma 2024 025 [place] [facility], [address], [facility] [address], [place], [address], 12/11/2024 11:13:28 lipid panel, serum 2024 025 [place] [facility], [address], [facility] [address], [place], [address], 12/11/2024 11:13:29 Referral None recorded. Procedures None recorded. Surgeries None recorded. Imaging None recorded. Medication Orders metformin 850 mg tablet 2024 025 [facility] [place], [address], 12/10/2024 11:55:42 atorvasta tin 40 mg tablet 2024 025 [facility], [address] [place], [address], 12/10/2024 09:28:12 Patient TargetsNo targets recorded. Patient InstructionsNo instructions recorded. Reason for Referral None Reported. Results Created Date Observation Date Name Description Value Unit Range Abnormal Flag Note LastModifiedBy Organization Detail LastModifiedTime 12/11/1912/11/2024 COMP. METAB OLIC PANEL (14) glucose 132 mg/dL 70-99 above high normal Not Available [facility] ([facility]) [address] [facility], [place], [address], 12/11/2024 11:13:28 12/11/19 25 12/11/2024 COMP. METAB OLIC PANEL (14) BUN 17 mg/dL 6-24 normal Not Available [facility] ([facility]) [address] [facility], [place], [address], 12/11/2024 11:13:28 12/11/19 25 12/11/2024 COMP. METAB OLIC PANEL (14) creatinine 1.22 mg/dL 0.76-1 .27 normal Not Available [facility] ([facility]) [address] [place], [address], 12/11/2024 11:13:28 12/11/19 25 12/11/2024 COMP. METAB OLIC PANEL (14) eGFR 69 mL/mi n/1.7 3 >59 normal Not Available [facility] ([facility]) [address] [place], [address], 12/11/2024 11:13:28 12/11/19 25 12/11/2024 COMP. METAB OLIC PANEL (14) BUN/creatini ne ratio 14 9-20 normal Not Available [facility] ([facility]) [address] [facility] [place], [address], 12/11/2024 11:13:28 12/11/19 25 12/11/2024 COMP. METAB OLIC PANEL (14) sodium 140 mmol/ L 134-14 4 normal Not Available [facility] ([facility]) [address] [facility] [place], [address], 12/11/2024 11:13:28 12/11/19 25 12/11/2024 COMP. METAB OLIC PANEL (14) potassium 4.9 mmol/ L 3.5-5. 2 normal Not Available [facility] ([facility]) [address] [facility] [place], [address], 12/11/2024 11:13:28 12/11/19 25 12/11/2024 COMP. METAB OLIC PANEL (14) chloride 101 mmol/ L 96-106 normal Not Available [facility] ([facility]) [address] [facility] [place], [address], 12/11/2024 11:13:28 12/11/19 25 12/11/2024 COMP. METAB OLIC PANEL (14) carbon dioxide, total 24 mmol/ L 20-29 normal Not Available [facility] ([facility]) [address] [facility] [place], [address], 12/11/2024 11:13:28 12/11/19 25 12/11/2024 COMP. METAB OLIC PANEL (14) calcium 9.9 mg/dL 8.7-10 .2 normal Not Available [facility] ([facility]) [address] [facility] [place], [address], 12/11/2024 11:13:28 12/11/19 25 12/11/2024 COMP. METAB OLIC PANEL (14) protein, total 6.9 g/dL 6.0-8. 5 normal Not Available [facility] ([facility]) [address] [facility] [place], [address], 12/11/2024 11:13:28 12/11/19 25 12/11/2024 COMP. METAB OLIC PANEL (14) albumin 4.5 g/dL 3.8-4. 9 normal Not Available [facility] ([facility]) [address] [facility] [place], [address], 12/11/2024 11:13:28 12/11/19 25 12/11/2024 COMP. METAB OLIC PANEL (14) globulin, total 2.4 g/dL 1.5-4. 5 Not Available [facility] ([facility]) [address] [facility] [place], [address], 12/11/2024 11:13:28 12/11/19 25 12/11/2024 COMP. METAB OLIC PANEL (14) bilirubin, total 0.5 mg/dL 0.0-1. 2 normal Not Available [facility] ([facility]) [address] [facility] [place], [address], 12/11/2024 11:13:28 12/11/19 25 12/11/2024 COMP. METAB OLIC PANEL (14) alkaline phosphatase 121 IU/L 44-121 normal Not Available [facility]) [address] [place], [address], 12/11/2024 11:13:28 12/11/19 25 12/11/2024 COMP. METAB OLIC PANEL (14) AST (SGOT) 31 IU/L 0-40 normal Not Available [facility] ([facility]) [address] [place], [address], 12/11/2024 11:13:28 12/11/19 25 12/11/2024 COMP. METAB OLIC PANEL (14) ALT (SGPT) 39 IU/L 0-44 normal Not Available [facility] ([facility]) [address] [place], [address], 12/11/2024 11:13:28 12/11/19 25 12/11/2024 LIPID PROFI LE cholesterol, total 132 mg/dL 100-19 9 normal Not Available [facility] ([facility]) [address] [place], [address], 12/11/2024 11:13:29 12/11/19 25 12/11/2024 LIPID PROFI LE triglyceride s 139 mg/dL 0-149 normal Not Available [facility] ([facility]) [address] [place], [address], 12/11/2024 11:13:29 12/11/19 25 12/11/2024 LIPID PROFI LE HDL cholesterol 35 mg/dL >39 below low normal Not Available [facility] ([facility]) [address] [place], [address], 12/11/2024 11:13:29 12/11/19 25 12/11/2024 LIPID PROFI LE VLDL cholesterol viktor 25 mg/dL 5-40 Not Available [facility] ([facility]) [address] [place], [address], 12/11/2024 11:13:29 12/11/19 25 12/11/2024 LIPID PROFI LE LDL chol calc ([facility]) 72 mg/dL 0-99 Not Available [facility]) [address] [place], [address], 12/11/2024 11:13:29 12/11/19 25 12/11/2024 LIPID PROFI LE LDL calc comment: ASSISTANT BOOKKEEPER Not Available [facility] ([facility]) [address] [facility], [place], [address], 12/11/2024 11:13:29 12/11/19 25 12/11/2024 ALBUM IN/CR EATIN INE RATIO ,URIN E creatinine, urine 137.5 mg/dL not estab. normal Not Available [facility] ([facility]) [address] [place], [address], 12/11/2024 11:13:30 12/11/19 25 12/11/2024 ALBUM IN/CR EATIN INE RATIO ,URIN E albumin, urine 105.4 ug/mL not estab. Not Available [facility] ([facility]) [address] [facility], [place], [address], 12/11/2024 11:13:30 12/11/19 25 12/11/2024 ALBUM IN/CR EATIN INE RATIO ,URIN E alb/creat ratio 77 mg/g_ creat 0-29 above high normal Ana l: 0 - 29 Moder ately incre ased: 30 - 300 Sever eitan incre ased: >300 Not Available [facility] ([facility]) [address] [place], [address], 12/11/2024 11:13:30 12/11/19 25 12/11/2024 PROST ATE-S [...] kits canno t be used inter goodwin eably . Resul ts canno t be inter prete d as absol ariadna evide nce of the prese nce or absen ce of sami house se. Not Available [facility] ([facility]) [address] [facility], [place], [address], 12/11/2024 11:13:31 12/11/19 25 12/10/2024 urina lysis , dipst ick Leukocytes (reference range) negati ve Not Available [facility] [address] [facility] [address], [place], [address], 12/10/2024 09:23:27 12/11/19 25 12/10/2024 urina lysis , dipst ick Nitrite (reference range:) negati ve Not Available [facility] [address] [facility] [address], [place], [address], 12/10/2024 09:23:27 12/11/19 25 12/10/2024 urina lysis , dipst ick Urobilinogen (reference range) 0.2 Not Available [facility] [address] [facility] [address], [place], [address], 12/10/2024 09:23:27 12/11/19 25 12/10/2024 urina lysis , dipst ick Protein (reference range) 100 Not Available [facility] [address] [facility] [address], [place], [address], 12/10/2024 09:23:27 12/11/19 25 12/10/2024 urina lysis , dipst ick pH (reference range 5-8.5) 5.5 Not Available [facility] [address], [place], [address], 12/10/2024 09:23:27 12/11/19 25 12/10/2024 urina lysis , dipst ick Blood (reference range:) non-He molyze d: Trace Not Available [facility] [place] [address] [facility] [address], [place], [address], 12/10/2024 09:23:27 12/11/19 25 12/10/2024 urina lysis , dipst ick Specific [place] (reference range) 1.020 Not Available [facility] [place] [address] [facility] [address], [place], [address], 12/10/2024 09:23:27 12/11/19 25 12/10/2024 urina lysis , dipst ick Ketone (reference range) trace Not Available [facility] [place] [address] [facility] [address], [place], [address], 12/10/2024 09:23:27 12/11/19 25 12/10/2024 urina lysis , dipst ick Bilirubin (reference range) negati ve Not Available [facility] [place] [address] [facility] [address], [place], [address], 12/10/2024 09:23:27 12/11/19 25 12/10/2024 urina lysis , dipst ick Glucose (reference range) negati ve Not Available [facility] [place] [address] [facility] [address], [place], [address], 12/10/2024 09:23:27 12/11/19 25 12/10/2024 urina lysis , dipst ick Color (reference range: yellow-brown ) Dark Yellow Not Available [facility] [place] [address], [place], [address], 12/10/2024 09:23:27 Result Notes None recorded. Problems Name Problem SNOMED Code Status Onset Date Resolution Date Notes Provider Name and Address Organization Details Recorded Time Laboratory test result abnormal 808676669 Active Not Available [facility] 4 19:46:18 Recurrent sinusitis 216819283 Active Not Available [facility] 19:46:18 Essential hypertensi on 20849611 Active Not Available [facility] 19:46:19 Basal cell carcinoma of lower extremity 380192609 Active Not Available [facility] 19:46:19 Malignant neoplasm of skin of lower limb 417868830 Active Not Available [facility] 19:46:18 Polyp of nasal cavity and/or nasal sinus 352540010 Active Not Available [facility] 19:46:19 Paresthesi a 89871576 Active Not Available [facility] 4 19:46:19 Allergic rhinitis 69244855 Active Not Available [facility] 4 19:46:19 Thoracic back pain 094502288 Active Not Available [facility] 19:46:18 Chronic cough 23358142 Active Not Available Count includes the [facility] 19:46:19 Disorder of skin of lower limb 042741574 Active Not Available [facility] 4 19:46:19 Major depressive disorder 867113204 Active Not Available [facility] 19:46:18 Right sided abdominal pain 249009688 Active Not Available [facility] 19:46:18 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 15527357 Active Not Available [facility] 19:46:18 Hyperlipid emia 77504420 Active Not Available [facility] 4 19:46:19 Obstructiv e sleep apnea syndrome 07751197 Active Not Available [facility] 4 19:46:19 Peripheral vascular disease 015702760 Active Not Available [facility] 4 19:46:18 Nodule of lung 434933674 Active Not Available [facility] 4 19:46:19 Perirectal abscess 66864634 Active Not Available [facility] 4 19:46:19 Pain in limb 79249732 Active 2004 Not Available [facility] 4 19:46:19 Depressive disorder 65577623 Active 2010 Not Available [facility] 4 19:46:18 Panic disorder without agoraphobi a 80076250 Active 2010 Not Available [facility] 4 19:46:19 Transient insomnia 774973184 Active 2010 Not Available [facility] 4 19:46:18 Family history of malignant neoplasm of kidney 608879544 Active 2010 Not Available [facility] 4 19:46:19 Generalize d anxiety disorder 95550676 Active 2010 Not Available [facility] 4 19:46:18 Abnormal voice 97469623 Active 2010 Not Available [facility] 4 19:46:18 Low back pain 116205951 Active 2011 Not Available [facility] 4 19:46:18 Sciatica 72859076 Active 2011 Not Available [facility] 4 19:46:18 Impotence of organic origin Active 2011 Not Available [facility] 4 19:46:18 Anal fistula 331870687 Active 2011 Not Available [facility] 4 19:46:19 Diarrhea 67567539 Active 2011 Not Available [facility] 4 19:46:19 Pulmonary emphysema 82086037 Active 2022 Not Available [facility] 4 19:46:19 Cough 39870286 Active 2022 Not Available [facility] 4 19:46:19 Dyspnea on exertion 39569545 Active 2022 Not Available [facility] 4 19:46:19 Tobacco dependence caused by cigarettes 4820308636338 9107 Active 2022 Not Available Count includes the [facility] 4 19:46:18 Neck pain 04385486 Active 2024 BOB GUERRERO gen, [place] - [facility] - [place] & [place] 5 16:20:55 Notes:Some problems listed i n Documents: #[id number], #[id number], #[id number] could not be added to this patient's chart. Please review these documents and add these problems to the patient's chart manually as needed. Problem Notes None recorded. Procedures Surgical History Date Name Laterality Status Provider Name and Address Organization Details Recorded Time 2024 repair of inguinal hernia completed Nedra monahan [place] - [facility] - [place] & [place] 5 18:27:56 2023 partial resection of colon completed Laila da [place] - [facility] - [place] & [place] 5 12:53:25 2022 esophagogastroduodenoscopy completed Laila da [place] - [facility] - [place] & [place] 5 12:51:07 2019 operation on accessory sinus completed Belle [place] - [facility] - [place] [facility] [place] 5 12:49:58 2019 Colonoscopy completed Belle [place] - [facility] - [place] & [place] 5 12:41:24 2019 removal of catheter completed Belle [place] [facility] [place] 4 15:06:20 2019 thrombectomy of artery completed Belle [place] - [facility] - [place] & [place] 4 15:07:15 2019 Stent Placement completed Belle [place] - [facility] [place] & [place] 5 12:56:07 2018 excision of basal cell carcinoma completed Belle [place]amer [place] - [facility] & [place] 5 12:40:42 2016 repair of iliac artery completed Belle Rothamer [place] Bernal [facility] [place] 5 12:41:06 1993 operation on nose completed Belle Rothamer [place] [facility] [place] 5 12:40:51 anal fissurectomy completed Sofia Capellan- [facility] [place] - [facility] [place] 3 10:52:43 Cataract Surgery completed Sofiaalanna Capellan- [facility] [place] - [facility] & [place] 3 10:52:55 reconstruction of an terior cruciate ligament of knee joint completed Sofia Capellan [facility] [place] - [facility] & [place] 3 10:54:25 nasal septoplasty completed Belle Fuentesamer VICKI [facility] [place] 4 15:04:22 Oral surgery procedure completed Me selvin Rojas [facility] [place] 4 15:05:49 Imaging Results None recorded. Procedure Notes None recorded. Medical Equipment None Reported. Allergies Allergen ID Allergen Name Allergen Category Reaction Reaction Severity Criticality Documentation Date Start Date Code Code System Note Provider Name and Address Organization Details Recorded Time 486011 No known allergy (situatio n) Not available Not available Not available Not available 05/12/2023 44104 6003 SNOMED Belle Rothamer null, [place] - [facility] & [place] 5 12:38:40 723387 ethinyl estradiol / levonorge strel medicatio n Not available Not available Not available 09/06/2024 12633 8 RxNorm Belle Rothamer null, [place] - [facility] & [place] 5 12:38:40 116103 Product containin g penicilli n (product) medicatio n Not available Not available Not available 09/06/2024 85320 8001 SNOMED Belle Rothamer null, [place] - [facility] [place] 5 12:54:33 Medications Name Sig Start Date Stop [...] Organization Details Last Updated DateTime 180.34 cm 26.1 kg/m2 90427.7 7 g 98.7 [degF] 92 % 92 % 114 /min 100/60 mm[Hg] Taya Rhea [facility] & [place] 09:18:21 Social History Question Answer Notes LastModified by Organizat ion Details LastModified Time Tobacco Smoking Status Current Every Day Smoker Taya Rhea [facility] & [place] 06/28/2022 10:15:55 Do You Have An Advance Directive? No [email or web address] Information not available 06/28/2022 Are You Blind Or Do You Have Difficulty Seeing? No Information not available 09/06/2024 What Is Your Level Of Caffeine Consumption? Moderate [email or web address] Information not available 08/10/2022 What Was The Date Of Your Most Recent Tobacco Screening? 09/03/2024 Information not available 09/06/2024 What Is Your Current Pack Years? 30ormorepacky ears [email or web address] Information not available 06/28/2022 At What Age Did You Start Smoking Tobacco? 19 [email or web address] Information not available 08/10/2022 Are You Passively Exposed To Smoke? No Information not available 09/06/2024 How Much Tobacco Do You Smoke? 2 PPD Information not available 09/06/2024 How Many Years Have You Smoked Tobacco? 38 Information not available 08/10/2022 Sex: Unknown Functional Status Question Answer Note LastModified by Organizat ion Details LastModified Time Do you use any illicit or recreational drugs? No [email or web address] Information not available 08/10/2022 What is your level of alcohol consumption? Occasional Information not available 09/06/2024 Do you or have you ever used smokeless tobacco? 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 None Information not available 09/06/2024 Mental Status Question Answer Note LastModified by Organization D etails LastModified Time Do you feel stressed (tense, restless, nervous, or anxious, or unable to sleep at night)? [id number] Information not available 09/06/2024 Family History Relationship [...] available 09/03/2024 17:16:18 Medical History Condition Response Anxiety Disorder Y Diabetes Y Allergies/Hayfever Y Other Y Vision or Eye Problems Y Arthritis Y Ear or Hearing Problems Y Polyps Y Cancer Y Diverticulitis Y Kidney or Bladder Problems Y COPD Y Depression Y Skin Problems Y Reflux/GERD Y High Cholesterol Y Hypertension Y Obstructive Sleep Apnea Y Immunizations Vaccine Type Date Status Note Provider Nam e and Address Organization Details Recorded Time zoster recombinant 2 completed Not Available [facility] 07/31/2023 19:46:19 zoster recombinant 1 completed Not Available [facility] 07/31/2023 19:46:19 COVID-19, mRNA, LNP-S, PF, 100 mcg/0.5mL dose or 50 mcg/0.25mL dose 2 completed VICKI Bautista - [facility] 09/17/2024 16:46:09 COVID-19, mRNA, LNP-S, PF, 30 mcg/0.3 mL dose 1 completed VICKI Bautista [facility] [place] 09/17/2024 16:46:09 COVID-19, mRNA, LNP-S, PF, 30 mcg/0.3 mL dose 1 completed Taylor Amy null, [place] [facility] [place] & [place] 09/17/2024 16:46:09 COVID-19, mRNA, LNP-S, PF, 30 mcg/0.3 mL dose 1 completed Taylor Amy null, [place] [facility] [place] 09/17/2024 16:46:09 Pneumococcal conjugate PCV20, polysaccharide [id number] conjugate, adjuvant, PF 2 completed Taylor Amy null[place] [facility] [place] 09/17/2024 16:46:09 Hep A, adult 8 completed Taylor Amy null, [place] - [facility] [place] 09/17/2024 16:46:09 Influenza, split virus, quadrivalent, PF 7 completed Taylor Amy [place] [facility] [place] 09/17/2024 16:46:09 Influenza, split virus, quadrivalent, PF 0 completed Taylor Amy [place] [facility] [place] 09/17/2024 16:46:09 Influenza, split virus, quadrivalent, PF 9 completed Taylor Amy [place] [facility] [place] 09/17/2024 16:46:09 Influenza, split virus, quadrivalent, PF 1 completed Taylor Amy null[place] [facility] [place] 09/17/2024 16:46:09 Influenza, split virus, quadrivalent, PF 6 completed Taylor Amy null[place] [facility] [place] 09/17/2024 16:46:09 Influenza, split virus, quadrivalent, PF 8 completed Taylor Amy [place] [place] 09/17/2024 16:46:09 influenza, unspecified formulation 2 completed Not Available [facility] 07/31/2023 19:46:20 Td(adult) unspecified formulation 8 completed Not Available [facility] 07/31/2023 19:46:20 Tdap 6 completed Not Available [facility] 07/31/2023 19:46:20 Tdap 1 completed Not Available [facility] 07/31/2023 19:46:20 Influenza, split virus, quadrivalent, PF 3 completed Taylor Amy [place] [facility] [place] 09/17/2024 16:46:09 COVID-19, mRNA, LNP-S, PF, 50 mcg/0.5 mL 3 completed Taylor Amy [place] [facility] [place] 09/17/2024 16:46:09 Influenza, split virus, quadrivalent, PF 3 completed Taylor Amy [place] [facility] [place] 09/17/2024 16:46:09 Influenza, split virus, trivalent, preservative 2 completed Taylor Amy [place] [facility] [place] 09/17/2024 16:46:09 Influenza, split virus, trivalent, PF 7 completed Not Available [facility] 07/31/2023 19:46:20 Influenza, split virus, trivalent, PF 6 completed Not Available [facility] 07/31/2023 19:46:20 Tdap 4 completed Taylor Amy null[place] [facility] [place] 09/17/2024 16:46:09 Influenza, split virus, trivalent, preservative 4 completed Taylor Amy [place] [facility] [place] 09/17/2024 16:46:09 influenza, unspecified formulation 8 completed Not Available [facility] 07/31/2023 19:46:20 Influenza, split virus, quadrivalent, PF 9 completed Not Available [facility] 07/31/2023 19:46:20 COVID-19, mRNA, LNP-S, PF, 50 mcg/0.5 mL 4 completed Belle [place] [facility] [place] 11/20/2024 18:20:42 Tdap 4 completed Belle [place] [facility] [place] 11/20/2024 18:20:42 Influenza, split virus, trivalent, PF 4 completed Belle [place] [facility] [place] 11/20/2024 18:20:42 Hep A, adult 4 completed Belle [place] [facility] [place] 11/20/2024 18:20:42 Past Encounters Encounter ID Performer Location Encounter Start Date Encounter Closed Date Diagnosis/Indication Diagnosis SNOMED-CT Code Diagnosis ICD10 Code Diagnosis Note [id number] Christie James MD [facility] [place] [address] [place] [id number] 12/10/2024 09:09:45 12/10/2024 10:01:03 Type 2 diabetes mellitus 43459480 E11.9 Right flank pain 2716695 09 R10.9 Hyperlipidemia 72290360 E78.5 Nocturia 549950606 R35.1 Health Concerns Section Related Observation LastModified by Organization Detai ls LastModified Time None Recorded Concern Status LastModified by Organization Details LastModified Time None Recorded Payers Encounter Date Sequence Insurance Name Policy Number Policy Kohli Covered Member ID Kohli Member ID Guarantor Name 12/10/2024 1 [place] [id number] Brian Turcios [id number] Brian Turcios Notes Date Note Type Note Provider Name and Address Organization Details Recorded Time 12/10/2024 text/html He is here for follow-up. [...] unremarkable. Recent negative CT. Christie James MD [address], [place], [address], [facility] - [place] & [place] 12/10/2024 11:56:12
--- OUTSIDE RECORDS SUMMARY | 2025-01-17 08:55 | XMS_ITS | Encounter Summary ---
Author Organization [employer] ([place], [place], [place], [place]) Address [address] [place] [address] Care Team Providers Care Heater Planer Operator Name Role Phone Zaid James MD Primary Care Provider [phone] Encounter Details Date Type Department Care Team (Late st Contact Info) Description 11/22/2019 Transcribed Document [facility] Family Medicine [facility] [place] [address] ProviderRomeo MD [address] [place] [address] Social History Tobacco Use Types Packs/Day Years Used Date Smoking Tobacco: Never Assessed Sex and Gender Information Value Date Recorded Sex Assigned at Male 12/21/2021 3:32 PM CDT Legal Sex Male 3:32 PM CDT Gender Identity Male 12/21/2021 3:32 PM CDT Sexual Orientation Not on file documented as of this encounter Miscellaneous Notes * Cerner Conversion Note - Historical ProviderMD - 11/22/2019 7:30 AM CDT [facility] Main OR PACU Summary Primary Physician: DIAMOND SCHMIDT MD-PRO Finalized Date/Time: 11/22/19 09:06:19 Pt. Name: TARA JULIETTE GINO /Sex: 1965 Male Med Rec #: [id number] Physician: DIAMOND SCHMIDT MD-PRO Financial #: [id number] Pt. Type: O Room/Bed: /2 Admit/Disch: 11/22/19 05:21:00 - Institution: [facility] Main OR PACU I Case Times Entry 1 In PACU I 11/22/19 08:24:00 Ready for PACU 11/22/19 09:03:00 Discharge Discharge from PACU 11/22/19 09:03:00 I Last Modified By: JORY SOLORZANO RN 11/22/19 09:03:38 [facility] Main OR PACU I Case Times Audit 11/22/19 09:03:38 Fighting Vehicle Infantryman: BRANDANGELA Modifier: BRANDEP <+> 1 Ready for PACU Discharge <+> 1 Discharge from PACU I Finalized By: JORY SOLORZANO, RN Document Signatures Signed By: JORY SOLORZANO RN 11/22/19 09:06 documented in this encounter Plan of Treatment Not on file documented as of this encounter Visit Diagnoses Not on filedocumented in this encounter Care Teams Heater Planer Operator Relationship Specialty Start Date End Date Zaid James MD [address] [address] PCP - General Family Medicine 01/04/24 documented as of this encounter
--- OUTSIDE RECORDS SUMMARY | 2025-01-17 08:55 | XMS_ITS | Encounter Summary ---
Author Organization [employer] ([place], [place], [place], [place]) Address [address] [place] [address] Care Team Providers Care Copy Center Associate Name Role Phone Zaid James MD Primary Care Provider [phone] Encounter Details Date Type Department Care Team (Late st Contact Info) Description 11/22/2019 Transcribed Document [facility] Family Medicine [facility] [place] [address] ProviderRomeo MD [address] [place] [address] Social History Tobacco Use Types Packs/Day Years Used Date Smoking Tobacco: Never Assessed Sex and Gender Information Value Date Recorded Sex Assigned at Male 12/21/2021 3:32 PM CDT Legal Sex Male 3:32 PM CDT Gender Identity Male 12/21/2021 3:32 PM CDT Sexual Orientation Not on file documented as of this encounter Miscellaneous Notes * Cerner Conversion Note - Historical ProviderMD - 11/22/2019 8:28 AM CDT Patient: JULIETTE PACHECO Age: 54 Years Sex: Male : 1965 CSGA Pre Op Diagnosis: Anal fistula Post Op Diagnosis: perineal sinus tract Procedure: Marcupialization of infected sinus tract. Control Systems Developer: None Blood loss: Minimal Specimen: none Indications: This is a 54-year-old gentleman who presents with an infected sinus tract at the perineal body. In the office I was able to probe this and see that it tracked back toward the rectum. I had previously taking care of him for another infected sinus tract in the perineal body area. I was suspicious that he might have an anal fistula, though I saw no internal opening on my office examination. I talked with him about returning to the operating room for exam under anesthesia and he agreed. Findings: Patient had a sinus tract that began in the mid perineal body area. I was able to pass a fistula probe through this and see that it tracked back towards the anus. I opened this entire area and saw a tract to a deeper cavity that ended in a blind area. I saw nothing that tract into the rectum. Not wanting to cause further false passages, I simply cauterized the edges to achieve hemostasis destroyed the underlying tract that was present and injected local anesthesia. Procedure in Detail: Patient was correctly identified brought to the operative room and placed in a supine position on the OR table. He underwent induction of anesthesia and was intubated with an LMA anesthetic. He was positioned in modified lithotomy position. He was prepped and draped over the perineum in the usual sterile fashion. An appropriate timeout was performed. Careful anorectal examination was performed. This confirmed the presence of a small infection in the mid perineal body area that had minimal associated cellulitis with it. I used a fistula probe and was easily able to find an external opening. I passed a fistula probe through this to see where it would easily track. It tracked for several centimeters towards the rectum and then came to in an. With a Elam retractor in the rectum I saw no evidence of an internal opening. At this point I opened the sinus tract to see if I could see where it might track and it seemed and in a blind pouch. At this point I cauterized the entire tract and skin edges for hemostasis. I carefully examined to see if it was any other tracts and I did not see any. A total of 30 mL of local anesthetic was injected. The patient was awakened, extubated, and brought to recovery room in good condition. documented in this encounter Plan of Treatment Not on file documented as of this encounter Visit Diagnoses Not on filedocumented in this encounter Care Teams Copy Center Associate Relationship Specialty Start Date End Date Zaid James MD [facility] [address] PCP - General Family Medicine 01/04/24 documented as of this encounter
--- OUTSIDE RECORDS SUMMARY | 2025-01-17 08:55 | XMS_ITS | Encounter Summary ---
Author Organization [facility], [facility] Address [address] [facility] [address] [place] [address] Phone Care Team Providers Care Take Down Sorter Name Role Phone Zaid James MD Primary Care Provider [phone] Encounter Details Date Type Department Care Team (Late st Contact Info) Description 12/10/2024 Documentation Only [facility], [facility] [address] [facility] [address] [place] [address] Provider, MD Romeo Social History Tobacco Use Types Packs/Day Years Used Date Smoking Tobacco: Every Day Cigarettes 1.5 1 Passive Smoke Exposure: Never Smokeless Tobacco: Never Comments:Lifetime smoker sta rting at age 19. Stopped smoking in 2016. Started back in April of 2021. Alcohol Use Standard Drinks/Week Comments Yes 1 (1 standard drink = 0.6 oz pur e alcohol) rare Sex and Gender Information Value Date Recorded Sex Assigned at Not on file Legal Sex Male 8:55 AM EDT Gender Identity Not on file Sexual Orientation Not on file documented as of this encounter Plan of Treatment Upcoming Encounters Date Type Department Care Team (Late st Contact Info) Description 01/29/2025 Orders Only [facility], [facility] [address] [facility] [address] [place] [address] Rick Carrillo MD [address] [address] Chronic kidney disease, stage 2 (mild); Hypertensive chronic kidney disease; Proteinuria, not otherwise specified; Microscopic hematuria; Peripheral vascular disease (HCC) 01/29/2025 1:45 PM EDT Office Visit [facility], [facility] [address] [address] Linda Martinez APRN [address] [address] documented as of this encounter Visit Diagnoses Not on filedocumented in this encounter Care Teams Take Down Sorter Relationship Specialty Start Date End Date Zaid James MD [facility] [address] PCP - General Family Medicine 06/28/23 documented as of this encounter
--- OUTSIDE RECORDS SUMMARY | 2025-01-17 08:55 | XMS_ITS | Clinical Summary ---
Author Organization [facility] Address [address] [address] Care Team Providers Care Sales Service Route Manager Name Role Phone Zaid James MD Primary Care Provider [phone] Allergies No known active allergies Medications cilostazol (PLETAL) 100 MG tablet Take 1 tablet by mouth in the morning and 1 tablet in the evening. 2 Active gabapentin (NEURONTIN) 300 MG capsule Take 1 capsule by mouth in the morning and 1 capsule in the evening and 1 capsule before bedtime. 2 Active clopidogrel (PLAVIX) 75 MG tablet Take 1 tablet by mouth 1 (one) time each day 2 Active DULoxetine (CYMBALTA) [address] capsule Take 1 capsule by mouth 1 (one) time each day 2 Active aspirin (ST PEDRO) 81 MG EC tablet Take 81 mg by mouth 1 (one) time each day Active pantoprazole (PROTONIX) 20 MG EC tablet Take 20 mg by mouth in the morning and 20 mg in the evening. 2 Active losartan (Cozaar) 25 MG tablet Take 1 tablet (25 mg total) by mouth 1 (one) time each day 30 tablet 11 3 Active Additional Information Patient taking differently: 50 mgOral Daily, Reported on 07/27/2023 albuterol HFA (PROVENTIL HFA;VENTOLIN HFA) 108 (90 Base) MCG/ACT inhaler 2 puffs every 4 (four) hours if needed 3 Active Baclofen 5 MG tablet Take 1 tablet by mouth in the morning and 1 tablet at noon and 1 tablet in the evening. 3 Active Tiotropium Ward Monohydrate (Spiriva Respimat) 2.5 MCG/ACT aerosol solution Inhale 1 tablet in the morning and 1 tablet in the evening. Active triamcinolone (KENALOG) 0.1 % cream APPLY A THIN LAYER OF CREAM EXTERNALLY TO AFFECTED AREA TWICE DAILY 3 Active atorvastatin (LIPITOR) 40 MG tablet Take 1 tablet by mouth 1 (one) time each day 4 Active Dapagliflozin Propanediol 10 MG tablet Take 10 mg by mouth 1 (one) time each day For 90 days 5 Active meloxicam (MOBIC) 15 MG tablet Take 15 mg by mouth 1 (one) time each day 5 Active metFORMIN (GLUCOPHAGE) 500 MG tablet Take 500 mg by mouth in the morning and 500 mg in the evening. Active Multiple Vitamin (Multi-Vitamin) tablet Take 1 tablet by mouth every night Active Active Problems Problem Noted Date Diagnosed Date Chronic kidney disease, stage 2 (mild) 4 Hypertensive chronic kidney disease 01/17/2023 Smoker 01/17/2023 Microscopic hematuria 02/02/2022 Hypertension 02/02/2022 Proteinuria, not otherwise specified 02/02/2022 Dyslipidemia 02/02/2022 Chronic pain 02/02/2022 Chronic depression 02/02/2022 Peripheral vascular disease 02/02/2022 Resolved Problems Problem Noted Date Diagnosed Date Resolved Date Laryngitis 01/17/2023 07/26/2023 Sleep apnea, not otherwise specified 02/02/2022 07/26/2023 At increased risk of diabetes mellitus 02/02/2022 07/26/2023 Erectile dysfunction 02/02/2022 024 Encounters Date Type Department Care Team Description 12/11/2024 Telephone [facility] [address] [place] [address] Lorie Heller 12/10/2024 Documentation Only [facility] [address] [place] [phone] Romeo Langley MD 12/10/2024 Documentation Only [facility] [address] [facility] [address] [place] [phone] Romeo Langley MD 12/10/2024 Documentation Only [facility] [address] [facility] [address] [place] [phone] Provider, MD Romeo from Last 3 Months Immunizations Immunization Administration Dates Next Due Hepatitis A 04/17/2024,04/23/2018 Influenza (IM) Preservative Free 04/17/2024,02/25,04/05/2016 Influenza, Quadrivalent, Pre servative Free 05/15/2023,08/18/2022,04/01/2021,2019,03/27/2019,04/23/2018,03/22/2017,1 Influenza, Unspecified 03/26/2022,2017,04/25/2014,2011 Moderna SARS-COV-2 01/11/2022 Moderna Sars-cov-2 (Covid-19 ) Vaccine, Mrna, Ras Protein 04/17/2024,05/15/2023 Pfizer SARS-COV-2 04/19/2021,10/01/2020,09/11/19 21 Pneumococcal Conjugate 03/01/2022 Shingrix 07/14/2021,04/01/2021 Td, Unspecified 10/16/2007 Tdap 04/17/2024,,09/24/2015,2003 Family History Medical History Relation Comments Alcohol abuse Brother 1 Depression Brother 1 Diabetes Brother 1 Hepatitis Brother 1 Hypertension Brother 1 Diabetes Brother 2 Hypertension Brother 2 Ulcers Brother 2 Diabetes Father Hypertension Father Kidney cancer Father Cancer Father's Brother Heart disease Father's Brother Cancer Maternal Grandfather Heart disease Maternal Grandfather Kidney cancer Mother Cancer Paternal Grandfather Relation Status Comments Brother 1 Brother 2 Father Father's Brother Maternal Grandfather Mother Paternal Grandfather Social History Tobacco Use Types Packs/Day Years [...] Sign Reading Time Taken Comments Blood Pressure 112/74 08/01/2024 9:43 AM EST Pulse 109 08/01/2024 9:43 AM EST Temperature - - Respiratory Rate - - Oxygen Saturation - - Inhaled Oxygen Concentration - - Weight 88.9 kg (196 lb) 08/01/2024 9:43 AM EST Height 177.8 cm (5' 10 ) 08/01/2024 9:43 AM EST Body Mass Index 28.12 08/01/2024 9:43 AM EST Plan of Treatment Upcoming Encounters Date Type Department Care Team (Late st Contact Info) Description 01/29/2025 Orders Only [facility] [address] [address] Rick Carrillo MD [address] [place] [id number] Chronic kidney disease, stage 2 (mild); Hypertensive chronic kidney disease; Proteinuria, not otherwise specified; Microscopic hematuria; Peripheral vascular disease (HCC) 01/29/2025 1:45 PM EDT Office Visit [facility] [address] [address] Linda Martinez APRN [address] [address] Health Maintenance Due Date Last Done Comments Hepatitis B Vaccine (1 of 3 - 19+ 3-dose series) 1985 Pneumococcal Vaccine: 50+ Ye ars (1 of 2 - PCV) 1985 03/01/2022 Colorectal Cancer Screening: Annual FOBT 2015 Colorectal Cancer Screening: Colonoscopy 2015 Colorectal Cancer Screening: Sigmoidoscopy 2015 Diabetes: Ophthalmology Exam 12/11/2024 02/03/2021, 09/05/2019 Diabetes: Pedal Pulse Checked 12/11/2024 Diabetes: Sensory Foot Exam 12/11/2024 Diabetes: Visual Foot Exam 12/11/2024 Diabetes: Hemoglobin A1C 02/01/2025 11/01/2024, 07/06/2023 Influenza Vaccine (#1) 2025 , 05/15/2023, 08/18/2022, Additional history exists Pneumococcal Vaccine: Peds ( 0 to 5 Years) and At-Risk Patients (6 to 49 Years) Discontinued 03/01/2022 Insurance [facility] Care Teams Sales Service Route Manager Relationship Specialty Start Date End Date Zaid James MD [address] [facility] [address] [place] [address] PCP - General Family Medicine 06/28/23
--- OUTSIDE RECORDS SUMMARY | 2025-01-17 08:55 | XMS_ITS | Clinical Summary ---
Author Organization [facility] Address [address] [place] [address] Phone [email or web address] e via [place] Care Team Providers Care Antique Finisher Name Role Phone Brad Minaya Primary Care Provider [phone] Allergies No known active allergies Medications cilostazol (PLETAL) 100 MG tablet Take 100 mg by mouth 2 (two) times a day. Active amLODIPine (NORVASC) 2.5 MG tablet Take 2.5 mg by mouth 1 (one) time each day. Active gabapentin (NEURONTIN) 300 MG capsule Take 300 mg by mouth at bed time. Active atorvastatin (LIPITOR) 40 MG tablet TAKE 1 TABLET BY MOUTH ONCE DAILY FOR 90 DAYS 0 11/12/2018 Active clopidogrel (PLAVIX) 75 MG tablet Take 75 mg by mouth once daily as needed. 09/17/2019 Active Aspirin Buf,CaCarb-MgCar b-MgO, 81 MG tablet Take 81 mg by mouth. Active Chantix Continuing Month Thien 1 MG tablet 09/19/2020 Act tyrone DULoxetine (CYMBALTA) [address] capsule Take 30 mg by mouth 1 (one) time each day. 12/21/2020 Active diclofenac (VOLTAREN) 75 MG EC tablet 04/16/2021 Active Active Problems Problem Noted Date Diagnosed Date Low back pain 02/28/2012 Overview (11/22/2017): Screening for hypertension 02/09/2011 Overview (11/22/2017): Hearing loss 12/28/2010 Overview (11/22/2017): Encounter for hearing examin ation following failed hearing screening 12/13/2010 Overview (11/22/2017): Mixed emotional features as adjustment reaction 08/16/2010 Overview (11/22/2017): Personal history of tobacco use, presenting hazards to health 11/30/2009 Overview (11/22/2017): Seborrheic dermatitis 10/22/2009 Overview (11/22/2017): Dyshidrosis 10/22/2009 Overview (11/22/2017): Tobacco use disorder 09/29/2009 Overview (11/22/2017): Contact dermatitis and other eczema due to other specified agent 04/14/2009 Overview (11/22/2017): Rash and other nonspecific skin eruption 009 Overview (11/22/2017): Examination for medicolegal reason 03/18/2008 Overview (11/22/2017): Ganglion of tendon sheath 02/27/2008 Overview (11/22/2017): Acquired trigger finger 02/12/2008 Overview (11/22/2017): Pain in joint, hand 02/12/2008 Overview (11/22/2017): Other examination of ears and hearing 01/15/2008 Overview (11/22/2017): Regular astigmatism 11/23/2007 Overview (11/22/2017): Presbyopia 11/23/2007 Overview (11/22/2017): Follow-up examination, following other surgery 0 11/06/2007 Overview (11/22/2017): 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 11/01/2007 Overview (11/22/2017): Multiple and open wound of u pper limb, with tendon involvement 11/01/2007 Overview (11/22/2017): Multiple and open wound of upper limb, complicat ed 10/17/2007 Overview (11/22/2017): Dizziness and giddiness 08/28/2007 Overview (11/22/2017): Resolved Problems Problem Noted Date Diagnosed Date Resolved Date Acute upper respiratory infection 08/01/2011 06/10/2019 Overview (11/22/2017): Pleurisy 03/07/2011 06/10/2019 Overview (11/22/2017): Immunizations Immunization Administration Dates Next Due COVID-19 (Pfizer [place] 12 yrs+) (CVX-208) 021,09/10/2020 Influenza, (Afluria Fluarix Flulaval Fluzone) quad, PF (CVX-150) 03/26/2020,03/27/2019 Td, adsorbed, PF, adult, Lf, unspecified (CVX-19 6) 10/16/2007 Tdap (ADACEL BOOSTRIX) (CVX-115) 06/05/2021,08/26 Social History Tobacco Use Types Packs/Day Years Used Date Smoking Tobacco: Former Cigarettes S tarted: 01/09/2018 Smokeless Tobacco: Never Intimate Partner Violence Answer Date R ecorded Insults You Not on file 10/07/2020 Threatens You Not on file 10/07/2020 Screams at You Not on file 10/07/2020 Physically Hurt Not on file 10/07/2020 Intimate Partner Violence Score Not on file 10/07/2020 Depression Answer Date Recorded PHQ Total Score 0 04/09/2022 Stress Answer Date Recorded Stress in your Life Not on file 04/29/2024 Dealing with Stress 3 04/29/2024 Sex and Gender Information Value Date Recorded Sex Assigned at Not on file Legal Sex Male 10:15 AM CDT Gender Identity Not on file Sexual Orientation Not on file Last Filed Vital Signs Vital Sign Reading Time Taken Comments Blood Pressure 126/79 06/29/2021 8:39 PM EST Pulse 105 06/29/2021 8:39 PM EST Temperature 36.4 C (97.6 F) 06/29/2021 8:39 PM EST Respiratory Rate 18 06/29/2021 8:39 PM EST Oxygen Saturation 94% 06/29/2021 8:39 PM EST Inhaled Oxygen Concentration - - Weight 79.4 kg (175 lb) 06/07/2021 9:03 PM EST Height 177.8 cm (5' 10 ) 06/07/2021 9:03 PM EST Body Mass Index 25.11 06/07/2021 9:03 PM EST Plan of Treatment Health Maintenance Due Date Last Done Comments Dental Cleaning/Exam 1965 HIV Screening 1965 Hepatitis C Screening 1965 Annual Preventive Exam 02/01/1984 Hep B Infection Screening - Triple Screen 02/01/1984 Hepatitis B Immunization (1 of 3 - 19+ 3-dose series) 1985 Colorectal Cancer Screening 02/01/1996 Zoster Immunization (1 of 2) 02/01/2016 Covid-19 Immunization ( - 2023- season) 2024 10/01/2020, 09/10/2020 Influenza Immunization (#1) 2025 100 06/2019, 03/27/2019 Tetanus Diphtheria and Pertussis Immunization (3 - Td or Tdap) 06/05/2031 06/05/2021, 09/24/2015 HIB Immunization Aged Out No longer e ligible based on patient's age to complete this topic HPV Immunization Aged Out No longer e ligible based on patient's age to complete this topic Hepatitis A Immunization Aged Out No longer eligible based on patient's age to complete this topic Pneumococcal: Ped (0 to 5 Yrs) and At-Risk Member (6 to 64 Yrs) Aged Out No longer eligible b ased on patient's age to complete this topic Polio Immunization Aged Out No longer eligible based on patient's age to complete this topic Insurance [employer] 5 [employer] 5 Care Teams Antique Finisher Relationship Specialty Start Date End Date Brad Minaya [address] [place] [address] PCP - General Family Medicine 06/10/19
--- OUTSIDE RECORDS SUMMARY | 2025-01-17 08:55 | XMS_ITS | Encounter Summary ---
Author Organization [employer] ([place], [place], [place], [place]) Address [address] [place] [address] Care Team Providers Care Tap And Die Maker Technician Name Role Phone Zaid James MD Primary Care Provider [phone] Encounter Details Date Type Department Care Team (Late st Contact Info) Description 11/22/[address] [facility] Family Medicine [facility] [place] [address] ProviderRomeo MD [address] [place] [address] Social History Tobacco Use Types Packs/Day [...] Historical ProviderMD - 11/22/2019 7:30 AM CDT [facility] Main OR Preop Summary Primary Physician: DIAMOND SCHMIDT MD-PRO Finalized Date/Time: 11/22/19 07:48:30 Pt. Name: TARA JULIETTE GINA /Sex: 1965 Male Med Rec #: [id number] Physician: DIAMOND SCHMIDT MD-PRO Financial #: [id number] Pt. Type: O Room/Bed: /2 Admit/Disch: 11/22/19 05:21:00 - Institution: [facility] PreOp Case Times Entry 1 In Preop 11/22/19 06:35:00 Ready for Holding n/a Room Patient Ready for 11/22/19 07:45:00 Surgery Patient Out of Preop 11/22/19 07:48:00 Patient Out of n/a Holding Room Last Modified By: Francesca Garza, Nurse Collections Rep 11/22/19 07:48:27 [facility] PreOp Case Times Audit 11/22/19 07:48:27 Well Drill Operator Cable Tool: [id number] Modifier: [id number] <+> 1 Patient Out of Preop Finalized By: Francesca Garza, Nurse Machine Wedger Signatures Signed By: Francesca Garza Nurse 11/22/19 07:48 Electronically signed by [facility] Conversion Chief Engineer'S Helper Cerner at 10/14/2022 4:08 PM CDT documented in this encounter Plan of Treatment Not on file documented as of this encounter Visit Diagnoses Not on filedocumented in this encounter Care Teams Tap And Die Maker Technician Relationship Specialty Start Date End Date Zaid James MD [facility] [address] [address] PCP - General Family Medicine 01/04/24 documented as of this encounter
--- OUTSIDE RECORDS SUMMARY | 2025-01-17 08:55 | XMS_ITS | Encounter Summary ---
Author Organization [facility], [facility] Address [address] [facility] [address] [place] [address] Phone Care Team Providers Care Patch Setter Name Role Phone Zaid James MD Primary Care Provider [phone] Encounter Details Date Type Department Care Team (Late st Contact Info) Description 12/10/2024 Documentation Only [facility], [facility] [address] [facility] [address] [place] [address] Provider, MD Romeo Social History [...] Info) Description 01/29/2025 Orders Only [facility], [facility] [address] [facility] [address] [place] [address] Rick Carrillo MD [address] [address] Chronic kidney disease, stage 2 (mild); Hypertensive chronic kidney disease; Proteinuria, not otherwise specified; Microscopic hematuria; Peripheral vascular disease (HCC) 01/29/2025 1:45 PM EDT Office Visit [facility], [facility] [address] [address] Linda Martinez APRN [address] [address] documented as of this encounter Visit Diagnoses Not on filedocumented in this encounter Care Teams Patch Setter Relationship Specialty Start Date End Date Zaid James MD [facility] [address] PCP - General Family Medicine 06/28/23 documented as of this encounter
--- OUTSIDE RECORDS SUMMARY | 2025-01-17 08:55 | XMS_ITS | Encounter Summary ---
Author Organization [employer] ([place], [place], [place], [place]) Address [address] [place] [address] Care Team Providers Care Air Conditioning Installer Supervisor Name Role Phone Zaid James MD Primary Care Provider [phone] Encounter Details Date Type Department Care Team (Late st Contact Info) Description 11/22/2019 Transcribed Document [facility] [place] [address] ProviderRomeo MD [address] [place] [address] Social History Tobacco Use Types Packs/Day Years Used Date Smoking Tobacco: Never Assessed Sex and Gender Information Value Date Recorded Sex Assigned at Male 12/21/2021 3:32 PM CDT Legal Sex Male 3:32 PM CDT Gender Identity Male 12/21/2021 3:32 PM CDT Sexual Orientation Not on file documented as of this encounter Miscellaneous Notes * Cerner Conversion Note - Historical ProviderMD - 11/22/2019 8:09 AM CDT [facility] Main OR IntraOp Summary Primary Physician: DIAMOND SCHMIDT MD-PRO Finalized Date/Time: 11/24/19 10:31:07 Pt. Name: TARA JULIETTE GINA /Sex: 1965 Male [facility] Rec #: [id number] Physician: DIAMOND SCHMIDT MD-PRO Financial #: [id number] Pt. Type: O Room/Bed: /2 Admit/Disch: 11/22/19 05:21:00 - 11/22/19 09:34:00 Institution: [facility] IntraOp Case Attendance Entry 1 Entry 2 Entry 3 Case Attendee DIAMOND SCHMIDT MD-PRO CALDWELL, JOSEPH A, CRNA Pantano, Scott, RN Role Performed Surgeon/Proceduralist, Anesthesiologist Scrub, First First Time In 11/22/19 07:52:00 11/22/19 07:52:00 11/22/19 07:52:00 Time Out 11/22/19 08:21:00 11/22/19 08:21:00 11/22/19 08:21:00 Procedure Examination Under Examination Under Examination Under Anesthesia, Anal Anesthesia, Anal Anesthesia, Anal Fistulectomy Fistulectomy Fistulectomy Other Attendee Superficial Wound Closed By: Last Modified By: Tara Benavides RN Hauer, Jessica, RN Hauer, Jessica, RN 11/22/19 09:47:15 11/22/19 09:47:15 11/22/19 09:47:15 Entry 4 Entry 5 Case Attendee Tara Benavides RN BOWEN, JON B, MD-ANS Role Performed Harvest Worker Field Crop, First Anesthesiologist of Record Time In 11/22/19 07:52:00 11/22/19 07:52:00 Time Out 11/22/19 08:21:00 11/22/19 08:21:00 Procedure Examination Under Examination Under Anesthesia, Anal Anesthesia, Anal Fistulectomy Fistulectomy Other Attendee Superficial Wound Closed By: Last Modified By: Tara Benavides, Tara Edwards RN 11/22/19 09:47:15 11/22/19 09:47:15 [facility] IntraOp Case Attendance Audit 11/22/19 09:47:15 [employer] Carrier: [id number] Modifier: [id number] 1 <*> Procedure Examination Under Anesthesia, Anal Fistulectomy 2 <+> Time In 2 <+> Time Out 2 <*> Procedure Examination Under Anesthesia, Anal Fistulectomy 3 <+> Time In 3 <+> Time Out 3 <*> Procedure Examination Under Anesthesia, Anal Fistulectomy 4 <+> Time In 4 <+> Time Out 4 <*> Procedure Examination Under Anesthesia, Anal Fistulectomy 5 <+> Time In 5 <+> Time Out 5 <*> Procedure Examination Under Anesthesia, Anal Fistulectomy 11/22/19 09:47:08 Parcel Post Carrier: [id number] Modifier: [id number] <+> Time In 1 <+> Time Out 1 <*> Procedure Examination Under Anesthesia, Anal Fistulectomy <+> 2 Case Attendee <+> 2 Role Performed <+> 2 Procedure <+> 3 Case Attendee <+> 3 Role Performed <+> 3 Procedure <+> 4 Case Attendee <+> 4 Role Performed <+> 4 Procedure <+> 5 Case Attendee <+> 5 Role Performed <+> 5 Procedure [facility] IntraOp Case Times Entry 1 Patient In Room Time 11/22/19 07:52:00 Out Room Time 11/22/19 08:21:00 Anesthesia Start Time 11/22/19 07:52:00 Stop Time 11/22/19 08:21:00 Surgery / Procedure Times Start Time 11/22/19 08:09:00 Stop Time 11/22/19 08:16:00 Last Modified By: Tara Benavides RN 11/22/19 09:46:03 [facility] IntraOp Cautery Entry 1 ESU Identification Cautery Type Monopolar ESU ID Number [id number] ID Type Serial Number Cautery Settings Cut Setting 30 Coag Setting 30 ESU Grounding Pad Ground Pad Type Adult Grounding Pad Site Right thigh Grounding Pad Tara Benavides RN Applied By Grounding Pad Site Warm, Dry, Intact Skin Condition Before Cautery Grounding Pad Site Unchanged Skin Condition After Cautery Last Modified By: Tara Benavides RN 11/22/19 09:50:26 [facility] IntraOp Counts Verification Entry 1 Procedure Examination Under Anesthesia, Anal Fistulectomy Count Info Count Type Sponge, Sharps, Miscellaneous Counts Verification Baseline/pre-procedure Sequence Counts Performed By Count Performed By Reid Lechuga RN (Scrub) Count Performed By Tara Benavides RN (RN) Last Modified By: Tara Benavides RN 11/22/19 09:50:44 [facility] IntraOp Counts Final Entry 1 Procedure Examination Under Anesthesia, Anal Fistulectomy Final Count Info Count Type Sponge, Sharps, Miscellaneous Counts Verification Skin Closure/end of Sequence procedure Count Results Correct, surgeon notified Counts Performed By Count Performed By Reid Lechuga RN (Scrub) Count Performed By Tara Benavides RN (RN) Last Modified By: Tara Benavides RN 11/22/19 09:51:00 [facility] IntraOp Delays Entry 1 Delay Reason Patient, other (document in comment) Duration 22 Minute(s) Comment PT NOT READY Last Modified By: Tara Benavides RN 11/22/19 09:52:32 [facility] IntraOp Departure from OR Entry 1 Integumentary Assessment Integumentary WDL with patient Assessment WDL specific variances Patient's Normal SURGICAL INCISION Integumentary Variance(s) Transfer/Handoff Transfer to PACU Phase I Handoff Method Bedside/Face to face, Phone call Post-op Transport Stretcher/Gurney Via Patient Transport Tara Benavides RN, Accompanied by PEDRO GOMEZ CRNA Last Modified By: Tara Benavides RN 11/22/19 09:52:55 [facility] IntraOp Departure from OR Audit 11/22/19 09:52:55 [employer] Post Carrier: [id number] Modifier: [id number] <+> 1 Transfer to <+> 1 Post-op Transport Via <+> 1 Patient Transport Accompanied by <+> 1 Handoff Method [facility] IntraOp Dressing and Packing Entry 1 Type Dressing Location OPSITE Wound Dressing Item 4x4's Applied By Tara Benavides RN Other Comments COVERALL TAPE Last Modified By: Tara Benavides RN 11/22/19 09:53:06 [facility] IntraOp Fire Risk Assessment Entry 1 Fire Info Surgical Site or 0- No Incision Above the Xyphoid Open O2 Source 0- No (Mask or Cannula) Available Ignition 1- Yes (ESU, Laser, Light Source) Fire Risk 1 Assessment Score Fire Score Fire Risk Yes Assessment Complete Fire Risk Tara Benavides RN Assessment Verified By Fire Risk 11/22/19 08:09:00 Assessment Verified Date/Time Fire Risk High Risk Protocol Yes Implemented Standard Fire Yes Safety Precautions Followed Last Modified By: Tara Benavides RN 11/22/19 09:53:17 [facility] IntraOp General Case Shaper Machine Hand 1 Case Information OR OR 12 [facility] Case Level 1 Room Verified Yes Wound Class III - Contaminated Specialty SN Colorectal Anesthesia Type General ASA Class 3 Diagnosis Preop Diagnosis ANAL FISTULA Postop Same As Preop No Postop Diagnosis ANAL FISTULA, INFECTED SINUS TRACT Last Modified By: Tara Benavides RN 11/22/19 09:53:49 [facility] IntraOp Intraoperative Assessment Entry 1 Handoff Method Bedside/Face to face, Online nursing summary Valid History / Yes Physical in Chart Preoperative Yes Checklist Reviewed/Evaluated Allergies Reviewed Yes Patient is Latex No Sensitive Isolation Not applicable Precautions Noted Level of WDL Consciousness (WDL = Alert, Oriented to Person, Place, and Time) Skin Assessment No Verified Present Upon IVs Arrival to OR Last Modified By: Tara Benavides RN 11/22/19 09:54:12 [facility] IntraOp Intraoperative Equipment Entry 1 Type Equipment Equipment Equipment Nata Suction System ID Number [id number] Setting HIGH Intraop Monitoring Electrocardiogram Five lead placement (ECG) Electrode Placement Blood Pressure Non-Invasive BP Device Source Blood Pressure Arm, left upper Location Pulse Oximeter Hand, right Probe Site Antiembolic Devices Scopes Photo/Video Documentation Last Modified By: Tara Benavides RN 11/22/19 09:54:43 [facility] IntraOp Medication Admin Entry 1 Entry 2 Medication/Irrigant LAKESHA IRR NACL 0.9PCT ROXANA ANESTHESIA 1.5L POUR --542994 COCKTAIL Combo Med List Time Administered Route of irrigation LOCAL, MIXED BY PHARMACY Administration Dose Dose 30 Unit of Measure ml Volume Administered By DIAMOND SCHMIDT MD-PRO DIAMOND SCHMIDT MD-PRO Procedure Irrigation Irrigant Volume In Irrigant Volume Out Last Modified By: Tara Benavides RN Hauer, Jessica, RN 11/22/19 09:55:23 11/22/19 09:55:23 [facility] IntraOp Patient Positioning Entry 1 Procedure Examination Under Anesthesia, Anal Fistulectomy Body Position Lithotomy Left Arm Position Secured on padded arm board Right Arm Position Secured on padded arm board Left Leg Position Secured in stirrup Right Leg Position Secured in stirrup Feet Uncrossed Yes Pressure Points Yes Checked Positioning Devices Arm Board, Head Rest, Pad, Elbow, Safety Strap, Thighs, Stirrups/Leg Kohli, Sling Positioned By Tara Benavides RN, DIAMOND SCHMIDT MD-PRO, PEDRO GOMEZ CRNA Position Verified Positioning Yes Verified by Anesthesia Positioning Yes Verified by Surgeon Last Modified By: Tara Benavides RN 11/22/19 09:55:41 [facility] IntraOp Sign In Entry 1 Patient, Site, Yes Procedure Identified Surgical Consent Yes Confirmed Relevant Surgical Yes Documents Available Surgical Site N/A Marked by person performing procedure Anesthesia Machine Yes Check Completed Medication Checks Yes Completed Allergies Yes Airway Difficult Yes Airway/Aspiration Risk Difficult Yes Airway/Aspiration Intervention Equipment Available Blood Loss Risk No Blood Loss No Intervention Equipment Prepared and Ready Blood Identifiers Not applicable Verified Per Policy Hypothermia Risk Yes Warming Measures Yes Taken Last Modified By: Tara Benavides RN 11/22/19 09:56:05 [facility] IntraOp Sign In Audit 11/22/19 09:56:05 [employer] Carrier: [id number] Modifier: [id number] <+> 1 Hypothermia Risk [facility] IntraOp Sign Out Entry 1 RN Confirmation Surgical Yes Procedure(s) Identified Instrument, Sponge Yes and Sharps Counts Correct/Documented Equipment Problems Yes Documented Specimen Labeled N/A Correctly Urinary Catheter N/A Documented in IView Alexander Patient Yes Recovery Concerns Reviewed with Anesthesia Provider, Surgeon and RN Alexander Patient Yes Management Concerns Reviewed with Anesthesia Provider, Surgeon and RN Safety Checklist Yes Elements Complete? RN Sign Out Tara Benavides RN Signature RN Sign Out 11/22/19 08:21:00 Signature Date/Time Plan of Care Outcome - Fire Risk OUTCOME STATEMENT: Goal met Patient is free from injury related to surgical fire Plan of Care Outcome - Pt Positioning OUTCOME STATEMENT: Goal met Absence of signs and symptoms of positioning injury. Plan of Care Outcome - Skin Prep OUTCOME STATEMENT: Goal met Intraoperative care is consistent with measures to prevent infection Plan of Care Outcome - Xray/Images OUTCOME STATEMENT: N/A Absence of observable signs or symptoms of radiation injury Plan of Care Outcome - Counts OUTCOME STATEMENT: N/A Absence of signs and symptoms of injury related to extraneous objects Last Modified By: Tara Benavides RN 11/22/19 09:56:16 [facility] IntraOp Sign Out Audit 11/22/19 09:56:16 [employer] Carrier: [id number] Modifier: [id number] 1 <*> Specimen Labeled Correctly Yes 1 <+> RN Sign Out Signature Date/Time 1 <+> Urinary Catheter Documented in IView [facility] IntraOp Skin Prep Entry 1 Procedure Examination Under Anesthesia, Anal Fistulectomy Prescribed Yes Pre-Surgical Prep Completed Prep Area perianal Intraop Prep Integumentary WDL Assessment WDL Prep Agents Betadine solution Prep by DIAMOND SCHMIDT MD-PRO Hair Removal Methods No hair removal performed Last Modified By: Tara Benavides RN 11/22/19 09:56:27 [facility] IntraOp Surgical Procedures Entry 1 Entry 2 Procedure Examination Under Anal Fistulectomy Anesthesia Modifiers Additional EXAM UNDER ANESTHESIA, Procedure ANAL FISTULECTOMY Description Primary Procedure Yes No Primary Surgeon DIAMOND SCHMIDT MD-PRO DIAMOND SCHMIDT MD-PRO Start 11/22/19 08:09:00 11/22/19 08:09:00 Stop 11/22/19 08:16:00 11/22/19 08:16:00 Physician States Cecum Reached Anesthesia Type General General Specialty SN Colorectal SN Colorectal Wound Class I - Clean III - Contaminated Last Modified By: Tara Benavides RN Hauer, Jessica, RN 11/22/19 09:56:52 11/22/19 09:57:08 [facility] IntraOp Surgical Procedures Audit 11/22/19 09:57:08 [employer] Carrier: [id number] Modifier: [id number] 2 <*> Procedure Anal Fistulectomy 2 <+> Specialty 11/22/19 09:56:52 [employer] Carrier: [id number] Modifier: [id number] 1 <*> Procedure Examination Under Anesthesia 1 <+> Specialty 1 <+> Start 1 <+> Stop 1 <*> Additional Procedure Description (EUA, ANAL FISTULOTOMY) <+> 2 Start <+> 2 Stop [facility] IntraOp Temp Regulation Devices Entry 1 Temp Regulation Temperature Warm blankets Regulation Device Temperature Upper body Regulation Site Last Modified By: Tara Benavides RN 11/22/19 09:56:56 [facility] IntraOP Time Out Entry 1 Procedure to be Examination Under Performed Anesthesia, Anal Fistulectomy Time Out Time Out Pause Time 11/22/19 08:09:00 All activity Yes suspended (unless life threatening emergency) Team Verbally Correct patient Confirms Information identity, Consent form is present and accurate, Agreement on the procedure to be done, Correct patient position, Confirm antibiotics have been administered, Confirm the skin prep has dried, Confirm prosthesis/implant/devic e is present, Performed in location of procedure after prepped/draped Time Out Comment NO SCUDS PER SURGEON Antibiotic Yes Prophylaxis Administered Or In Progress Within the Last 60 Minutes Beta Mirian N/A Administered Venous N/A Thromboembolism Prophylaxis Required Anticipated Critical Events Surgeon None expected Anesthesia Provider None expected Nursing Assures Sterility of instruments Essential Imaging N/A Labeled and Displayed Last Modified By: Tara Benavides RN 11/22/19 09:58:43 Case Comments <None> Finalized By: CHANDLER HUSTON Document Signatures Signed By: Tara Benavides RN 11/22/19 10:09 CHANDLER HUSTON 11/24/19 10:31 Unfinalized History Date/Time Username Reason for Unfinalizing Freetext Reason for Unfinalizing 11/24/19 10:29 GLENN Correct Billing Electronically signed by Josh [facility] Conversion Squeak Rattle And Leak Repairer Cerner at 10/14/2022 3:43 PM CDT documented in this encounter Plan of Treatment Not on file documented as of this encounter Visit Diagnoses Not on filedocumented in this encounter Care Teams Air Conditioning Installer Supervisor Relationship Specialty Start Date End Date Zaid James MD [address] [address] PCP - General Family Medicine 01/04/24 documented as of this encounter
--- OUTSIDE RECORDS SUMMARY | 2025-01-17 08:55 | XMS_ITS | Encounter Summary ---
Author Organization [facility] ([place], [place], [place], [place]) Address [address] [place] [address] Care Team Providers Care Investigator Cash Shortage Name Role Phone Zaid James MD Primary Care Provider [phone] Encounter Details Date Type Department Care Team (Late st Contact Info) Description 11/22/2019 Transcribed Document [facility] [place] Family Medicine [place] [address] ProviderRomeo MD [address] [place] [address] Social History Tobacco Use Types Packs/Day Years Used Date Smoking Tobacco: Never Assessed Sex and Gender Information Value Date Recorded Sex Assigned at Male 12/21/2021 3:32 PM CDT Legal Sex Male 3:32 PM CDT Gender Identity Male 12/21/2021 3:32 PM CDT Sexual Orientation Not on file documented as of this encounter Miscellaneous Notes * Cerner Conversion Note - Romeo Langley MD - 11/22/2019 9:15 AM CDT Patient Education Materials Follows: General Anesthesia, Adult, Care After This sheet gives you information about how to care for yourself after your procedure. Your health care provider may also give you more specific instructions. If you have problems or questions, contact your health care provider. What can I expect after the procedure? After the procedure, the following side effects are common: ??? Pain or discomfort at the IV site. ??? Nausea. ??? Vomiting. ??? Sore throat. ??? Trouble concentrating. ??? Feeling cold or chills. ??? Weak or tired. ??? Sleepiness and fatigue. ??? Soreness and body aches. These side effects can affect parts of the body that were not involved in surgery. Follow these instructions at home: For at least 24 hours after the procedure: ??? Have a responsible adult stay with you. It is important to have someone help care for you until you are awake and alert. ??? Rest as needed. ??? Do not: ? Participate in activities in which you could fall or become injured. ? Drive. ? Use heavy machinery. ? Drink alcohol. ? Take sleeping pills or medicines that cause drowsiness. ? Make important decisions or sign legal documents. ? Take care of children on your own. Eating and drinking ??? Follow any instructions from your health care provider about eating or drinking restrictions. ??? When you feel hungry, start by eating small amounts of foods that are soft and easy to digest (bland), such as toast. Gradually return to your regular diet. ??? Drink enough fluid to keep your urine pale yellow. ??? If you vomit, rehydrate by drinking water, juice, or clear broth. General instructions ??? If you have sleep apnea, surgery and certain medicines can increase your risk for breathing problems. Follow instructions from your health care provider about wearing your sleep device: ? Anytime you are sleeping, including during daytime naps. ? While taking prescription pain medicines, sleeping medicines, or medicines that make you drowsy. ??? Return to your normal activities as told by your health care provider. Ask your health care provider what activities are safe for you. ??? Take viil-qeo-jxuzsxz and prescription medicines only as told by your health care provider. ??? If you smoke, do not smoke without supervision. ??? Keep all follow-up visits as told by your health care provider. This is important. Contact a health care provider if: ??? You have nausea or vomiting that does not get better with medicine. ??? You cannot eat or drink without vomiting. ??? You have pain that does not get better with medicine. ??? You are unable to pass urine. ??? You develop a skin rash. ??? You have a fever. ??? You have redness around your IV site that gets worse. Get help right away if: ??? You have difficulty breathing. ??? You have chest pain. ??? You have blood in your urine or stool, or you vomit blood. Summary ??? After the procedure, it is common to have a sore throat or nausea. It is also common to feel tired. ??? Have a responsible adult stay with you for the first 24 hours after general anesthesia. It is important to have someone help care for you until you are awake and alert. ??? When you feel hungry, start by eating small amounts of foods that are soft and easy to digest (bland), such as toast. Gradually return to your regular diet. ??? Drink enough fluid to keep your urine pale yellow. ??? Return to your normal activities as told by your health care provider. Ask your health care provider what activities are safe for you. This information is not intended to replace advice given to you by your health care provider. Make sure you discuss any questions you have with your health care provider. Document Released: 09/18/2001 Document Revised: 01/26/2018 Document Reviewed: 01/26/2018 [employer] Interactive Patient Education ? 2019 [employer] Gastroenterology Anal Fistulotomy, Care After This sheet gives you information about how to care for yourself after your procedure. Your health care provider may also give you more specific instructions. If you have problems or questions, contact your health care provider. What can I expect after the procedure? After the procedure, it is common to have: ??? Some pain, discomfort, and swelling. ??? Increased pain during bowel movements. ??? Some bleeding from the wound. Follow these instructions at home: Medicines ??? Take ljqz-knw-grdepuw and prescription medicines only as told by your health care provider. ??? If you were prescribed an antibiotic medicine, take it as told by your health care provider. Do not stop taking the antibiotic even if you start to feel better. Activity ??? Do not drive for 24 hours if you received a medicine to help you relax (sedative) during your procedure. ??? Do not drive or use heavy machinery while taking prescription pain medicine. ??? Do not lift anything that is heavier than the limit that your health care provider tells you until he or she says that it is safe. ??? Rest as told by your health care provider. It is also important to move around in between periods of rest. Get up and move around as often as you can tolerate. ??? Return to your normal activities as told by your health care provider. Ask your health care provider what activities are safe for you. Lifestyle ??? Limit alcohol intake to no more than 1 drink a day for non women and 2 drinks a day for men. One drink equals 12 oz of beer, 5 oz of wine, or 1? oz of hard liquor. ??? Do not use any products that contain nicotine or tobacco, such as cigarettes and e-cigarettes. If you need help quitting, ask your health care provider. Incision care ??? Follow instructions from your health care provider about how to take care of your incision. ? If gauze (dressing) was placed in your incision during surgery, you may be told to remove it yourself after a certain period of time. Make sure you wash your hands with soap and water before and after removing your dressing. If soap and water are not available, use hand softball umpire. ? Do not remove your dressing unless told by your health care provider. You may be told to allow the dressing to come out with your first bowel movement after surgery, instead of removing the dressing. ? Leave stitches (sutures), skin glue, or adhesive strips in place. These skin closures may need to stay in place for 2 weeks or longer. Do not remove adhesive strips completely unless your health care provider tells you to do that. ??? Keep the incision clean and dry. ??? Check your incision area every day for signs of infection. Check for: ? More redness, swelling, or pain. ? More fluid or blood. ? Warmth. ? Pus or a bad smell. ??? After having a bowel movement, clean the incision area using one of the following methods: ? Gently wipe with a moist towelette. ? Gently wipe with mild soap and water. ? Take a shower. ? Take a sitz bath. This is a warm water bath that is taken while you are sitting down. ??? You may apply ice to the incision area to reduce discomfort: ? Put ice in a plastic bag. ? Place a towel between your skin and the bag. ? Leave the ice on for 20 minutes, 2?3 times a day. Eating and drinking ??? Follow instructions from your health care provider about eating or drinking restrictions. ??? Drink enough fluid to keep your urine clear or pale yellow. ??? Eat lots of fiber. Fiber helps regulate bowel movements and prevent constipation. Foods that contain a lot of fiber include: ? Fruits. ? Vegetables. ? Whole grains. General instructions ??? Do not swim or use a hot tub until your health care provider says that this is safe. ??? If you have bleeding from your wound, wear an absorbent pad and change it often. ??? Wear compression stockings as told by your health care provider. These stockings help to prevent blood clots and reduce swelling in your legs. ??? Keep all follow-up visits as told by your health care provider. This is important. Contact a health care provider if: ??? You have more redness, swelling, or pain around your incision area. ??? Your incision area feels warm to the touch or firm. ??? You have pus or a bad smell coming from your incision area. ??? You have a fever or chills. ??? You develop swelling or tenderness in your groin area. ??? You cannot control when you have bowel movements. ??? You are leaking stool (incontinent). ??? You have trouble urinating. ??? You have pain that does not get better with medicine. Get help right away if: ??? You have severe pain in your: ? Wound area. ? Abdomen. ??? You have sudden chest pain. ??? You become weak or you pass out (faint). ??? You have more fluid or blood coming from your incision. ??? You have bleeding from your incision that soaks 2 or more pads during 24 hours. This information is not intended to replace advice given to you by your health care provider. Make sure you discuss any questions you have with your health care provider. Document Released: 10/04/2016 Document Revised: 01/19/2017 Document Reviewed: 10/04/2016 [employer] Interactive Patient Education ? 2019 [employer]. Electronically signed by Esteban Moreno Conversion Commercial Real Estate Sales Manager Cerner at 10/14/2022 3:50 PM CDT documented in this encounter Plan of Treatment Not on file documented as of this encounter Visit Diagnoses Not on filedocumented in this encounter Care Teams Investigator Cash Shortage Relationship Specialty Start Date End Date Zaid James MD [address] [address] PCP - General Family Medicine 01/04/24 documented as of this encounter
--- OUTSIDE RECORDS SUMMARY | 2025-01-17 08:55 | XMS_ITS | Encounter Summary ---
Author Organization [facility], [facility] Address [address] [address] Phone Care Team Providers Care New Car Salesperson Name Role Phone Zaid James MD Primary Care Provider [phone] Reason for Visit * Reason Onset Date Comments Advice Only 12/11/2024 Encounter Details Date Type Department Care Team (Late st Contact Info) Description 12/11/2024 Telephone [facility] [address] [address] Lorie Heller [address] [address] Social History Tobacco Use Types Packs/Day Years [...] as of this encounter Miscellaneous Notes * Telephone Encounter - Lorie Heller - 12/12/2024 4:18 PM EDT Spoke with pt and relayed message with med safety information. Pt is aware and expressed understanding. Pt is still working on having his labs sent to our office from his PCP. * Telephone Encounter - Lorie Heller - 12/11/2024 4:21 PM EDT Pt calling in asking about safety of Farxiga 10mg tablet daily and Mobic. Pt doesn't know the dose or frequency. Pt states he's passing protein in his urine again. Pt states he's having his PCP's office fax over his lab results. Asking if he needs to be seen sooner. Call back number for pt is [phone]. documented in this encounter Plan of Treatment Upcoming Encounters Date Type Department Care Team (Late st Contact Info) Description 01/29/2025 Orders Only [facility] [address] [address] Rick Carrillo MD [address] [id number] Chronic kidney disease, stage 2 (mild); Hypertensive chronic kidney disease; Proteinuria, not otherwise specified; Microscopic hematuria; Peripheral vascular disease (HCC) 01/29/2025 1:45 PM EDT Office Visit [facility] [address] [address] Linda Martinez APRN [address] [address] documented as of this encounter Visit Diagnoses Not on filedocumented in this encounter Care Teams New Car Salesperson Relationship Specialty Start Date End Date Zaid James MD [address] [address] PCP - General Family Medicine 06/28/23 documented as of this encounter
--- OUTSIDE RECORDS SUMMARY | 2025-01-17 08:55 | XMS_ITS | Encounter Summary ---
Author Organization [facility] Address [address] [facility] [address] [place] [address] Phone Care Team Providers Care Child Care Associate Name Role Phone Zaid James MD Primary Care Provider [phone] Encounter Details Date Type Department Care Team (Late st Contact Info) Description 12/10/2024 Documentation Only [facility] [address] [facility] [address] [place] [address] Provider, MD Romeo Social History [...] Info) Description 01/29/2025 Orders Only [facility] [address] [facility] [address] [place] [address] Rick Carrillo MD [address] [address] Chronic kidney disease, stage 2 (mild); Hypertensive chronic kidney disease; Proteinuria, not otherwise specified; Microscopic hematuria; Peripheral vascular disease (HCC) 01/29/2025 1:45 PM EDT Office Visit [facility] [address] [address] Linda Martinez APRN [address] [address] documented as of this encounter Visit Diagnoses Not on filedocumented in this encounter Care Teams Child Care Associate Relationship Specialty Start Date End Date Zaid James MD [facility] [address] PCP - General Family Medicine 06/28/23 documented as of this encounter
--- OUTSIDE RECORDS SUMMARY | 2025-01-17 08:55 | XMS_ITS | Encounter Summary ---
Author Organization [employer] ([place], [place], [place], [place]) Address [address] [place] [address] Care Team Providers Care Etcher Apprentice Name Role Phone Zaid James MD Primary Care Provider [phone] Encounter Details Date Type Department Care Team (Late st Contact Info) Description 11/21/2019 Transcribed Document [facility] [place] Family Medicine [facility] [place] [address] ProviderRomeo MD [address] [place] [address] Social History Tobacco Use Types Packs/Day Years Used Date Smoking Tobacco: Never Assessed Sex and Gender Information Value Date Recorded Sex Assigned at Male 12/21/2021 3:32 PM CDT Legal Sex Male 3:32 PM CDT Gender Identity Male 12/21/2021 3:32 PM CDT Sexual Orientation Not on file documented as of this encounter Miscellaneous Notes * Cerner Conversion Note - Historical ProviderMD - 11/21/2019 2:07 PM CDT PAT Adult Entered On: 11/21/2019 14:13 EDT Performed On: 11/21/2019 14:07 EDT by KRISTIN BARBOZA, LYUDMILA Height and Weight, Clinical Dosing Height Source : Measured Height Entry Format : [place] Height, Feet : 5 ft(Converted to: 152 cm, 60 Inch) Height, Inches : 11 Inch(Converted to: 0 ft 11 Inch, 27.94 cm) Clinical Height : 180.34 cm Weight Source : Standing scale Weight Entry Format : [place] Clinical Dosing Weight : 77.95 kg Weight, Pounds : 171.5 lb Body Surface Area (BSA) : 1.98 m2 Body Mass Index : 24 kg/m2 [place] Body Weight : 74 kg Francesca Garza, Nurse Chief Operator Lock Tender - 11/22/2019 7:06 EDT Health Histories Smoking Status : 10 or more cigarettes (1/2 pack or more)/day in last 30 days, Smoker, current status unknown Smokeless Tobacco Status : Never Desires Tobacco Cessation Medication : No Reason for No Tobacco Cessation Medication : Refuses FDA approved medications KRISTIN BARBOZA RN - 11/21/2019 14:07 EDT Social History (As Of: 11/21/2019 14:13:25 EDT) Alcohol: Alcohol Use History Yes. Alcohol Use Frequency Rarely. (Last Updated: 06/07/2017 14:24:03 EST by SYDNEE MODI) Substance Abuse: Drug Use Hx: No. (Last Updated: 06/07/2017 14:24:08 EST by SYDNEE MODI) Infectious Disease History Date of COVID-19 Test : 11/19/2019 Has the patient ever been tested for COVID-19? : Yes, Patient stated results Negative Francesca Garza, Nurse Chief Operator Lock Tender - 11/22/2019 7:06 EDT COVID19 Screening : No Experiencing Infectious Disease Symptoms : No symptoms Physical contact outside [place] in the last 30 days : No Infectious Disease Symptoms Score : 0 Infectious Disease History : Chicken pox/Shingles Tuberculosis Symptoms : None KRISTIN BARBOZA RN - 11/21/2019 14:07 EDT Anesthesia/Transfusion History Family History of Anesthesia Reaction : No prior transfusion(s) Transfusion History : Prior anesthesia without reaction Family History of Anesthesia Reaction : Other: mom very sleepy ponv KRISTIN BARBOZA RN - 11/21/2019 14:07 EDT Functional Assessment Functional ADL Evaluation Index EBN Bathing : Independent (2) Dressing : Independent (2) Toileting : Independent (2) Transferring Bed or Chair : Independent (2) Continence : Independent (2) Feeding : Independent (2) KRISTIN BARBOZA RN - 11/21/2019 14:07 EDT ADL Index Score : 12 KRISTIN BARBOZA RN - 11/21/2019 14:07 EDT Advance Directive Patient has Advance Directive *Q : No, patient refuses Advance Directive information KRISTIN BARBOZA RN - 11/21/2019 14:07 EDT Spiritual/Cultural Needs Significant Loss/Crisis in Past 3 Years : No Significant Distress/Coping/Need Support : No KRISTIN BARBOZA RN - 11/21/2019 14:07 EDT [place] Suicide Severity Rating Scale (C-SSRS) CSSRS Past Month Wish to be : No CSSRS Past Month Suicidal Thoughts : No CSSRS Lifetime Suicide Behavior : No Suicide Severity Rating Score : 0 Suicide Severity Rating : No Additional Care Required at this time KRISTIN BARBOZA RN - 11/21/2019 14:07 EDT Psychosocial History Do You Have a History of the Following? : Patient denies history Currently in Unsafe Situation : No KRISTIN BARBOZA RN - 11/21/2019 14:07 EDT Teaching/Learning Assessment Barriers To Learning : None evident Learning Style Preferences Patient : Demonstration, Printed materials, Verbal explanation KRISTIN BARBOZA RN - 11/21/2019 14:07 EDT General Info Want Family/Rep/Phys Notified of Admit : No Emergency Contact #1 : none Emergency Contact #1 Phone Number : none Emergency Contact #1 Relationship : none Emergency Contact #2 : none Emergency Contact #2 Phone Number : none Emergency Contact #2 Relationship : none Francesca Garza, Nurse Chief Operator Lock Tender - 11/22/2019 7:06 EDT Support Person/Pt Rep Name : melba castillo [phone] Primary Language : Japanese Communication Barrier : None KRISTIN BARBOZA RN - 11/21/2019 14:07 EDT Osmin Scale Osmin Sensory Perception : Slightly limited [place] Moisture : Rarely moist [place] Activity : Walks occasionally Osmin Mobility : Slightly limited [place] Nutrition : Adequate [place] Friction and Shear : Potential problem [place] Score : 18 KRISTIN BARBOZA RN - 11/21/2019 14:07 EDT Sleep Apnea Risk Assmt BMI Greater Than 35 kg/m2 : No Neck Circumference Greater Than 40 cm : No STOP-BANG Sleep Apnea Risk Level Score : 2 Francesca Garza, Nurse Chief Operator Lock Tender - 11/22/2019 7:06 EDT Hx of Obstructive Sleep Apnea Diagnosis : No Snore Loudly : No Tired, Fatigued, or Sleepy During Day : No Observed Stopping Breathing During Sleep : No Have/Are Being Treated for Hypertension : No Age over 50 Years Old : Yes Gender Male : Yes KRISTIN BARBOZA RN - 11/21/2019 14:07 EDT Electronically signed by Josh [facility] Conversion Product Engineering Manager Cerner at 10/14/2022 3:56 PM CDT documented in this encounter Plan of Treatment Not on file documented as of this encounter Visit Diagnoses Not on filedocumented in this encounter Care Teams Etcher Apprentice Relationship Specialty Start Date End Date Zaid James MD [address] [address] PCP - General Family Medicine 01/04/24 documented as of this encounter
--- OUTSIDE RECORDS SUMMARY | 2025-01-17 08:55 | XMS_ITS | Encounter Summary ---
Author Organization [employer] ([place], [place], [place], [place]) Address [address] [place] [address] Care Team Providers Care Shorthand Reporter Name Role Phone Zaid James MD Primary Care Provider [phone] Encounter Details Date Type Department Care Team (Late st Contact Info) Description 11/22/2019 Transcribed Document [facility] [place] [facility] [place] [address] ProviderRomeo MD [address] [place] [address] Social History Tobacco Use Types Packs/Day [...] Historical ProviderMD - 11/22/2019 7:30 AM CDT [facility] PostOp Summary Primary Physician: DIAMOND SCHMIDT MD-PRO Finalized Date/Time: 11/22/19 09:35:15 Pt. Name: TARA JULIETTE GINA /Sex: 1965 Male Med Rec #: [id number] Physician: DIAMOND SCHMIDT MD-PRO Financial #: [id number] Pt. Type: O Room/Bed: /2 Admit/Disch: 11/22/19 05:21:00 - Institution: [facility] Main [facility] PostOp Case Times Entry 1 In PACU II 11/22/19 09:05:00 Ready for PACU II 11/22/19 09:34:00 Discharge Discharge from PACU 11/22/19 09:34:00 II Last Modified By: RAMAN JADE, LYUDMILA 11/22/19 09:35:13 [facility] PostOp Case Times Audit 11/22/19 09:35:13 Loan Documentation Specialist: BRAIN Modifier: ROYBETH <+> 1 Ready for PACU II Discharge <+> 1 Discharge from PACU II Finalized By: RAMAN JADE, RN Document Signatures Signed By: RAMAN JADE RN 11/22/19 09:35 Electronically signed by [facility] Conversion Pharmacist In Charge Owner Cerner at 10/14/2022 3:58 PM CDT documented in this encounter Plan of Treatment Not on file documented as of this encounter Visit Diagnoses Not on filedocumented in this encounter Care Teams Shorthand Reporter Relationship Specialty Start Date End Date Zaid James MD [address] [address] PCP - General Family Medicine 01/04/24 documented as of this encounter
--- OUTSIDE RECORDS SUMMARY | 2025-01-17 08:55 | XMS_ITS | Clinical Summary ---
Author Organization [facility] Address [address] [place] [id number] Care Team Providers Care Ict Support And Test Engineers Name Role Phone Liu Escobar Sukhwinder Primary Care Provider Unavail able Allergies No known active allergies Medications atorvastatin (LIPITOR) 40 MG tablet Take 40 mg by mouth daily. Active ASPIRIN 81 PO Take by mouth. Active cilostazol (PLETAL) 100 MG tablet Take 100 mg by mouth 2 (two) times daily. Active amLODIPine (NORVASC) 2.5 MG tablet Take 2.5 mg by mouth daily. Active lisinopril (PRINIVIL) 10 MG tablet Take 10 mg by mouth daily. Active varenicline (CHANTIX) 1 MG tablet Take 1 mg by mouth 2 (two) times daily. Active DULoxetine (CYMBALTA) 30 MG capsule Take 30 mg by mouth daily. Active gabapentin (NEURONTIN) 300 MG capsule Take 300 mg by mouth 3 (three) times daily. Active Social History Tobacco Use Types Packs/Day Years Used Date Smoking Tobacco: Every Day Cigarettes Smokeless Tobacco: Never Alcohol Use Standard Drinks/Week Comments Yes 0 (1 standard drink = 0.6 oz pur e alcohol) social Sex and Gender Information Value Date Recorded Sex Assigned at Not on file Legal Sex Male 2:20 PM EDT Gender Identity Not on file Sexual Orientation Not on file Last Filed Vital Signs Vital Sign Reading Time Taken Comments Blood Pressure 121/72 03/31/2022 2:00 PM EDT Pulse 87 03/31/2022 2:00 PM EDT Temperature 36.1 C (97 F) 03/31/2022 12:20 PM EDT Respiratory Rate 17 03/31/2022 12:03 PM EDT Oxygen Saturation 96% 03/31/2022 2:00 PM EDT Inhaled Oxygen Concentration - - Weight 85.3 kg (188 lb) 03/31/2022 9:21 AM EDT Height 180.3 cm (5' 11 ) 03/31/2022 9:21 AM EDT Body Mass Index 26.22 03/31/2022 9:21 AM EDT Plan of Treatment Health Maintenance Due Date Last Done Comments CT Colonography 1966 Colonoscopy 1966 Colorectal Cancer Screening 1966 FIT-DNA 1966 FIT 1966 FOBT 1966 Sigmoidoscopy 1966 Hepatitis B (HepB) Vaccine (1 of 3 - 19+ 3-dose series) 1985 Annual SDOH Screening 06/26/2024 Influenza Vaccine (#1) 2025 1, 03/26/2020, 03/27/2019, Additional history exists Tdap/Td Vaccine >11 yo (3 - Td or Tdap) 06/05/2031 06/05/2021, 09/24/2015, 10/16/2007 Hepatitis A (HepA) Vaccine Aged Out 04/23/2018 N o longer eligible based on patient's age to complete this topic Shingles (Shingrix) Completed 07/14/2021, 1 Pneumococcal Vaccines >50 yo Completed 03/01/2022 Haemophilus Influenzae Type B (Hib) Vaccine Aged Out No longer eligible based on patient's age to complete this topic Meningococcal ACWY Aged Out No longer eligible based on patient's age to complete this topic Polio (IPV) Aged Out No longer eligi ble based on patient's age to complete this topic Rotavirus (RV) Vaccine Aged Out No lo nger eligible based on patient's age to complete this topic Care Teams Ict Support And Test Engineers Relationship Specialty Start Date End Date Liu Escobar PCP - General 03/31/22
--- OUTSIDE RECORDS SUMMARY | 2025-01-17 08:55 | XMS_ITS | Encounter Summary ---
Author Organization [employer] ([place], [place], [place], [place]) Address [address] [place] [address] Care Team Providers Care Hydrology Teacher Name Role Phone Zaid James MD Primary Care Provider [phone] Encounter Details Date Type Department Care Team (Late st Contact Info) Description 11/22/2019 Transcribed Document [facility] Family Medicine [facility] [place] [address] ProviderRomeo MD [address] [place] [address] Social History Tobacco Use Types Packs/Day Years Used Date Smoking Tobacco: Never Assessed Sex and Gender Information Value Date Recorded Sex Assigned at Male 12/21/2021 3:32 PM CDT Legal Sex Male 3:32 PM CDT Gender Identity Male 12/21/2021 3:32 PM CDT Sexual Orientation Not on file documented as of this encounter Miscellaneous Notes * Cerner Conversion Note - Romeo ProviderMD - 11/22/2019 9:17 AM CDT [facility] VICKI Hernandez [id number] JULIETTE PACHECO :1965 Visit Time:11/22/2019 What to do next Your Diagnosis Anal fistula, Anal fistula Instructions From Your Care Team Diet after Discharge: Resume usual diet as tolerated, Do not drink any alcoholic beverages for 24 hours following anestheia or when taking pain meds _ Fluid Restriction after Discharge: _ Activity after Discharge: As tolerated, _, _ Lifting Restrictions: _ Weight Bearing: _ Bedrest: _ Driving after Discharge: Do not drive until 24 hours after no longer taking pain medications or for 24 hours following anesthesia May Return to Work/School: Showering/Bathing: May shower, _ Notify Provider of: Wound/Incision Care after Discharge: Keep operative site/wound site clean and dry, _ Medical Equipment for Home Use: Home Health Services: Community Services: Discharge Follow Up Instructions: Follow up in 2 weeks in the office. Activity: Discharge Activity: Activity as tolerated Diet: Discharge Diet: Regular diet as tolerated Follow-Up Appointments Follow Up with DIAMOND SCHMIDT When Within 2 weeks Where: [facility] [address] [place] [address] [facility] (1) Medications What How Much When Instructions Next Dose amLODIPine (amLODIPine 2.5 mg oral tablet) 1 Tablet(s) Oral Every Day aspirin 81 Milligram(s) Oral Every Day atorvastatin (atorvastatin 20 mg oral tablet) Oral Every Day clopidogrel (Plavix) 75 Milligram(s) Oral Every Day cyclobenzaprine 10 Milligram(s) Oral Three Times A Day as needed for as needed for muscle spasm for back diclofenac 75 Milligram(s) Oral Two Times A Day gabapentin (Neurontin 300 mg oral capsule) 1 Capsule(s) Oral Three Times A Day varenicline (Chantix) 1 Milligram(s) Oral Two Times A Day Take your medications faithfully. Do NOT skip medication. Do NOT stop taking medications without the direction of a physician. Carry a list of your medications with you at all times, and take this medication list with you to your first follow up visit. Report any side effects. Avoid herbal remedies unless discussed with your physician. As part of your treatment plan, your physician may have prescribed a limited course of a controlled substance. This medication may be given to help people with moderate or severe pain or for other medical conditions, but there are risks involved with treatment. Common side effects may include nausea, constipation, drowsiness, sweating, itching, dry mouth, and rash. More serious side effects may include cognitive and motor impairment, like problems with thinking, concentrating, alertness, and movement (e.g. slowed reflexes), and driving and operating heavy machinery can be dangerous. It is important for you to talk to your physician if you have these side effects or questions. These controlled substances can produce physical dependence and be habit-forming if taken for an extended period of time, which means that the body has gotten used to them and may experience withdrawal symptoms if they are abruptly stopped. Withdrawal symptoms can include runny nose, sweating, goose bumps, diarrhea, abdominal cramping, rapid heartbeat, difficulty sleeping, and nervousness. Please dispose of unused and medications per pharmacy guidance. Education Materials General Anesthesia, Adult, Care After This sheet [...] activities are safe for you. ??? Take [id number] and prescription medicines only as told by [...] 09/18/2001 Document Revised: 01/26/2018 Document Reviewed: 01/26/2018 Elsevier Interactive Patient Education ?? 2019 [employer] Anal Fistulotomy, Care After This sheet gives [...] these instructions at home: Medicines ??? Take [id number] and prescription medicines only as told by [...] of beer, 5 oz of wine, or 1?? oz of hard liquor. ??? Do not [...] and water are not available, use hand senior engineering associate. ? Do not remove your dressing unless [...] Leave the ice on for 20 minutes, 2???3 times a day. Eating and drinking ??? [...] 10/04/2016 Document Revised: 01/19/2017 Document Reviewed: 10/04/2016 [employer] Patient Education ?? 2019 [employer]. acetaminophen and oxycodone (a SEET a MIN oh fen and OX i KOE done) Endocet 10/325, Endocet 2.5/325, Endocet 5/325, Endocet 7.5/325, Nalocet, Percocet, Primlev What is the most important information I should know about acetaminophen and oxycodone? MISUSE OF OPIOID MEDICINE CAN CAUSE ADDICTION, OVERDOSE, OR . Keep the medication in a place where others cannot get to it. An overdose of acetaminophen can damage your liver or cause . Call your doctor at once if you have pain in your upper stomach, loss of appetite, dark urine, or jaundice (yellowing of your skin or eyes). Taking opioid medicine during may cause life-threatening withdrawal symptoms in the . Fatal side effects can occur if you use opioid medicine with alcohol, or with other drugs that cause drowsiness or slow your breathing. Stop taking this medicine and call your doctor right away if you have skin redness or a rash that spreads and causes blistering and peeling. What is acetaminophen and oxycodone? Acetaminophen and oxycodone is a combination medicine used to relieve moderate to severe pain. Acetaminophen and oxycodone may also be used for purposes not listed in this medication guide. What should I discuss with my healthcare provider before taking acetaminophen and oxycodone? You should not use this medicine if you are allergic to acetaminophen or oxycodone, or if you have: ?? severe asthma or breathing problems; or ?? a blockage in your stomach or intestines. Tell your doctor if you have ever had: ?? breathing problems, sleep apnea; ?? liver disease; ?? a drug or alcohol addiction; ?? kidney disease; ?? a head injury or seizures; ?? urination problems; or ?? problems with your thyroid, pancreas, or gallbladder. If you use opioid medicine while you are , your baby could become dependent on the drug. This can cause life-threatening withdrawal symptoms in the baby after it is born. Babies born dependent on opioids may need medical treatment for several weeks. Do not breastfeed. This medicine can pass into breast milk and cause drowsiness, breathing problems, or in a nursing baby. How should I take acetaminophen and oxycodone? Follow all directions on your prescription label. Never take this medicine in larger amounts, or for longer than prescribed. An overdose can damage your liver or cause . Tell your doctor if you feel an increased urge to use more of this medicine. Never share this medicine with another person, especially someone with a history of drug abuse or addiction. MISUSE CAN CAUSE ADDICTION, OVERDOSE, OR . Keep the medicine in a place where others cannot get to it. Selling or giving away acetaminophen and oxycodone is against the law. Measure liquid medicine carefully. Use the dosing syringe provided, or use a medicine dose-measuring device (not a kitchen spoon). If you need surgery or medical tests, tell the doctor ahead of time that you are using this medicine. You should not stop using this medicine suddenly. Follow your doctor's instructions about tapering your dose. Store at room temperature away from moisture and heat. Keep track of your medicine. You should be aware if anyone is using it improperly or without a prescription. Do not keep leftover opioid medication. Just one dose can cause in someone using this medicine accidentally or improperly. Ask your pharmacist where to locate a drug take-back disposal program. If there is no take-back program, flush the unused medicine down the toilet. What happens if I miss a dose? Since this medicine is used for pain, you are not likely to miss a dose. Skip any missed dose if it is almost time for your next dose. Do not use two doses at one time. What happens if I overdose? Seek emergency medical attention or call the Poison Help line at . An overdose of acetaminophen and oxycodone can be fatal. The first signs of an acetaminophen overdose include loss of appetite, nausea, vomiting, stomach pain, sweating, and confusion or weakness. Later symptoms may include pain in your upper stomach, dark urine, and yellowing of your skin or the whites of your eyes. Overdose can also cause severe muscle weakness, pinpoint pupils, very slow breathing, extreme drowsiness, or coma. What should I avoid while taking acetaminophen and oxycodone? Avoid driving or operating machinery until you know how this medicine will affect you. Dizziness or drowsiness can cause falls, accidents, or severe injuries. Do not drink alcohol. Dangerous side effects or could occur. Ask a doctor or pharmacist before using any other medicine that may contain acetaminophen (sometimes abbreviated as APAP). Taking certain medications together can lead to a fatal overdose. What are the possible side effects of acetaminophen and oxycodone? Get emergency medical help if you have signs of an allergic reaction: hives; difficulty breathing; swelling of your face, lips, tongue, or throat. Opioid medicine can slow or stop your breathing, and may occur. A person caring for you should seek emergency medical attention if you have slow breathing with long pauses, blue colored lips, or if you are hard to wake up. In rare cases, acetaminophen may cause a severe skin reaction that can be fatal. This could occur even if you have taken acetaminophen in the past and had no reaction. Stop taking this medicine and call your doctor right away if you have skin redness or a rash that spreads and causes blistering and peeling. Call your doctor at once if you have: ?? noisy breathing, sighing, shallow breathing, breathing that stops during sleep; ?? a light-headed feeling, like you might pass out; ?? weakness, tiredness, fever, unusual bruising or bleeding; ?? confusion, unusual thoughts or behavior; ?? problems with urination; ?? liver problems--nausea, upper stomach pain, tiredness, loss of appetite, dark urine, briseida-colored stools, jaundice (yellowing of the skin or eyes); or ?? low cortisol levels-- nausea, vomiting, loss of appetite, dizziness, worsening tiredness or weakness. Seek medical attention right away if you have symptoms of serotonin syndrome, such as: agitation, hallucinations, fever, sweating, shivering, fast heart rate, muscle stiffness, twitching, loss of coordination, nausea, vomiting, or diarrhea. Serious side effects may be more likely in older adults and those who are overweight, malnourished, or debilitated. Long-term use of opioid medication may affect fertility (ability to have children) in men or women. It is not known whether opioid effects on fertility are permanent. Common side effects include: ?? dizziness, drowsiness, feeling tired; ?? feelings of extreme happiness or sadness; ?? nausea, vomiting, stomach pain; ?? constipation; or ?? headache. This is not a complete list of side effects and others may occur. Call your doctor for medical advice about side effects. You may report side effects to FDA at 5-675-DVV-0679. What other drugs will affect acetaminophen and oxycodone? You may have breathing problems or withdrawal symptoms if you start or stop taking certain other medicines. Tell your doctor if you also use an antibiotic, antifungal medication, heart or blood pressure medication, seizure medication, or medicine to treat HIV or hepatitis C. Opioid medication can interact with many other drugs and cause dangerous side effects or . Be sure your doctor knows if you also use: ?? cold or allergy medicines, bronchodilator asthma/COPD medication, or a diuretic ('water pill'); ?? medicines for motion sickness, irritable bowel syndrome, or overactive bladder; ?? other narcotic medications--opioid pain medicine or prescription cough medicine; ?? a sedative like Valium--diazepam, alprazolam, lorazepam, Xanax, Klonopin, Versed, and others; ?? drugs that make you sleepy or slow your breathing--a sleeping pill, muscle relaxer, medicine to treat mood disorders or mental illness; ?? drugs that affect serotonin levels in your body--a stimulant, or medicine for depression, Parkinson's disease, migraine headaches, serious infections, or nausea and vomiting. This list is not complete. Other drugs may affect acetaminophen and oxycodone, including prescription and [id number]-prmjtfn medicines, vitamins, and herbal products. Not all possible interactions are listed here. Where can I get more information? Your doctor or pharmacist can provide more information about acetaminophen and oxycodone. Remember, keep this and all other medicines out of the reach of children, never share your medicines with others, and use this medication only for the indication prescribed. Every effort has been made to ensure that the information provided by [employer] is accurate, up-to-date, and complete, but no guarantee is made to that effect. Drug information contained herein may be time sensitive. [employer] information has been compiled for use by healthcare practitioners and consumers in the [place] and therefore [employer] does not warrant that uses outside of the [place] are appropriate, unless specifically indicated otherwise. [employer] drug information does not endorse drugs, diagnose patients or recommend therapy. [employer] drug information is an informational resource designed to assist licensed healthcare practitioners in caring for their patients and/or to serve consumers viewing this service as a supplement to, and not a substitute for, the expertise, skill, knowledge and judgment of healthcare practitioners. The absence of a warning for a given drug or drug combination in no way should be construed to indicate that the drug or drug combination is safe, effective or appropriate for any given patient. [employer] does not assume any responsibility for any aspect of healthcare administered with the aid of information [employer] provides. The information contained herein is not intended to cover all possible uses, directions, precautions, warnings, drug interactions, allergic reactions, or adverse effects. If you have questions about the drugs you are taking, check with your doctor, nurse or pharmacist. Copyright 0294-3731 [employer]. Version: 20.01. Revision Date: 07/17/2019. Emergency Awareness and Preventative Care STROKE is an EMERGENCY Every Minute Counts Act FAST and Check for these signs: FACE Does the face look uneven? ARM Does one arm drift down? SPEECH Does their speech sound strange? TIME Call at any sign of stroke Stroke Risk Factors Atrial Fibrillation (irregular heartbeat) Diabetes Family history of stroke Heart Disease Heavy alcohol use High Blood Pressure High Cholesterol Physical inactivity and obesity Smoking Cigarette Smoking The facts are clear, cigarette smoking will shorten your life. Smoking can cause many illnesses along the way. As a healthcare provider, we recommend that you stop smoking. Assistance with quitting is available by contacting 2-295-HHVN-NOW. This is a free resource providing counseling, support, and referral. Or you may contact your personal physician. National Suicide Prevention Lifeline: The National Suicide Prevention Lifeline is a national network of local crisis centers that provides free and confidential emotional support to people in suicidal crisis or emotional distress 24 hours a day, 7 days a week. Don't Wait! Stop a Heart Attack Before it Starts What is a heart attack? A heart attack is damage or to a part of the heart from severely decreased or lack of blood flow to the heart. Over time, arteries can become narrow from the buildup of fat and cholesterol, which is called plaque. The plaque can rupture causing a blood clot to form. When the blood clot forms, the artery can become severely narrowed or completely blocked, causing a heart attack. Heart attack is the leading cause of in the [place]. 85% of muscle damage occurs within the first 2 hours. Delay in the recognition of heart attack symptoms increases the chances of . Know the early symptoms of a heart attack: Nausea Feeling of fullness in chest Jaw Pain Pain that travels down one or both arms Fatigue/being tired Anxiety Back Pain Chest pressure, squeezing, or discomfort Shortness of breath Sweating, or a cold sweat Feeling of impending doom There are unusual signs of a heart attack, too! Women, the elderly, and diabetics may present with atypical symptoms: Fainting/dizziness Weakness Confusion Risk Factors for a Heart Attack Some heart disease risk factors, such as age and family history, cannot be changed. Others, like smoking and lack of exercise, can be changed. Smoking High Cholesterol High Blood Pressure Family History Obesity Age Gender (Males are at higher risk) Lack of Exercise Diabetes Diet Stress Excessive Alcohol Intake If you or someone you know is experiencing the signs and symptoms of a heart attack, DON???T DELAY. Call immediately and seek help. If someone collapses, perform CPR! Do not attempt to drive if you are having symptoms of heart attack. Hands-Only CPR Why Hands-Only CPR? Hands-Only CPR has been shown to be as effective as conventional CPR for cardiac arrests that occur outside of a hospital. Survival depends on immediately receiving CPR from someone nearby. How do you perform Hands-Only CPR? There are two easy steps: Call if you see a teen or adult collapse Push hard and fast in the center of the chest at a beat of 100 beats per minute. Save a life! 4 WAYS TO GET AHEAD OF SEPSIS SEPSIS is a MEDICAL EMERGENCY. Time matters! Infections put you and your family at risk for a life-threatening condition called sepsis. Sepsis is the body's extreme response to an infection. It is life-threatening, and without timely treatment, sepsis can rapidly lead to tissue damage, organ failure, and . Sepsis happens when an infection you already have-in your skin, lungs, urinary tract or somewhere else-triggers a chain reaction throughout your body. 1 PREVENT INFECTIONS Take good care of chronic conditions. Talk to your doctor about getting the recommended vaccines. 2 PRACTICE GOOD HYGIENE Wash your hands frequently. Keep cuts or open sores clean and covered until they are healed. 3 KNOW THE SYMPTOMS Confusion or disorientation Shortness of breath High heart rate Fever, shivering, or feeling very cold Extreme pain or discomfort Clammy or sweaty skin 4 ACT FAST Get medical care IMMEDIATELY if you suspect sepsis or if you have an infection that is not getting better or is getting worse. To learn more about sepsis and how to prevent infections, visit www.cdc.gov/sepsis. Test Results Laboratory or Other Results This Visit (last charted value for your 11/22/2019 visit) Microbiology 11/19/2019 10:20 AM Novel Coronavirus 2019: Negative Patient Name:JULIETTE PACHECO I have received this information and was given the opportunity to ask questions. Patient/Auto Wheel Alignment Specialist Name: Patient/Auto Wheel Alignment Specialist Signature: Relationship to Patient: Clinician/Hospital Auto Wheel Alignment Specialist Signature: Date: Electronically signed by Interface, [facility] Conversion Driver/Sales Workers Cerner at 10/14/2022 4:03 PM CDT documented in this encounter Plan of Treatment Not on file documented as of this encounter Visit Diagnoses Not on filedocumented in this encounter Care Teams Hydrology Teacher Relationship Specialty Start Date End Date Zaid James MD [address] [id number] PCP - General Family Medicine 01/04/24 documented as of this encounter
[2025-01-17 09:23] LABS: Hematocrit 45.6 % (42.0-52.0); Hemoglobin 14.8 g/dL (14.1-18.0); Immature Granulocytes % 0.6 %; Mean Corpuscular HGB Conc 32.5 g/dL (31.8-35.4); Mean Corpuscular Hemoglobin 30.9 pg (27.0-31.2); Mean Corpuscular Volume 95.2 fl (80-94); Nucleated Red Blood Cells % 0 %; Platelet Count 379 K/mm3 (142-424); Red Blood Count 4.79 M/mm3 (4.60-6.20); Red Cell Distribution Width-SD 49.4 fL; White Blood Count 14.6 K/mm3 (4.8-10.8)
[2025-01-17 09:53] LABS: Albumin Level 3.5 g/dl (3.5-5.0); Anion Gap 8.1 mEq/L (5-15); Blood Urea Nitrogen 20 mg/dl (9-20); Calcium 9.0 mg/dl (8.4-10.2); Carbon Dioxide 29 mmol/L (22.0-30.0); Chloride 103 mmol/L (98-107); Creatinine,Serum 1.00 mg/dl (0.66-1.25); Estimated Glomerular Filt Rate 77 ml/min (>60); GFR (African American) 93 ML/MIN (>60); Glucose 122 mg/dl (74-100); Magnesium 1.8 mg/dl (1.6-2.3); Phosphorous 2.7 mg/dl (2.5-4.5); Potassium 4.1 mmoL/L (3.5-5.1); Sodium 136 mmol/L (136-145); Uric Acid 3.6 mg/dl (3.5-8.5)
== END 2025-01-17 23:59 | disposition home or self-care (01) ==
LOC: LAB 08:50
PROVIDERS: PCP Family Medicine
DX: I12.9 Hypertensive chronic kidney disease with stage 1 through stage 4 chronic kidney disease, or unspecified chronic kidney disease (principal); N18.2 Chronic kidney disease, stage 2 (mild); R80.9 Proteinuria, unspecified; R31.29 Other microscopic hematuria; I73.9 Peripheral vascular disease, unspecified
CPT/HCPCS: 80069; 82570; 83735; 84156; 84550; 85025